=== PATIENT | male | born 1960 | race Caucasian/White ===

== ENCOUNTER → 2019-05-17 11:35 | Outpatient (BNVA) | payer MEDICAID, SELFPAY | PROVIDERS: Family Provider Family Medicine; PCP Family Medicine; Visit Provider Psychiatry & Neurology Psychiatry | DX: F41.1 Generalized anxiety disorder (principal); F33.0 Major depressive disorder, recurrent, mild | CPT/HCPCS: 99214 ==

== ENCOUNTER 2019-05-27 10:08 | Outpatient (CLI) | payer MEDICAID, SELFPAY ==
--- NOTE | 2019-05-27 10:15 | USCV_ITS ---
AdryanHumble sabillon Age: 59 Gender: M : 1960 Exam Date: 05/27/2019 10:33 Ordering Phys: Bud Granados MD Technologist: Sri Shields Exam Location: [facility] [place] Indication: KNOWN DVT. RECHECKING HISTORY: Known DVT in Rt leg. This is recheck PROCEDURES: Comparison:. 07/14/18 Venous duplex imaging was performed in only the right lower extremity. The following venous structures were evaluated: common femoral vein, profunda vein, proximal portion of the greater saphenous vein, superficial femoral vein, and the popliteal vein. In addition, the posterior tibial and peroneal trunk were evaluated. Serial compression, augmentation maneuvers, and spectral Doppler flow evaluation were performed. FINDINGS: Persistent DVT from the CFV through mid SFV. No flow seen in the distal femoral vein There is flow seen in the popliteal vein but it does not compress completely. The peroneal vein compresses and has flow. CONCLUSIONS Persistent DVT right lower extremity without improvement. Dr. Lidia Mcdermott DO (Electronically Signed) Final Date: 27 May 2019 14:30 S
== END 2019-05-27 10:09 | disposition home or self-care (01) ==
LOC: RAD 10:16
PROVIDERS: Family Provider Family Medicine; PCP Family Medicine; Visit Provider Family Medicine
DX: I82.501 Chronic embolism and thrombosis of unspecified deep veins of right lower extremity (principal)
CPT/HCPCS: 93971

== ENCOUNTER 2019-05-31 09:08 | Day surgery (SDC) | payer MEDICAID, SELFPAY ==
--- NOTE | 2019-05-31 09:26 | ANES.PREANE2 ---
Pre-Anesthetic Assessment Pre-Anesthetic Assessment: Height/Weight: Height 1.68 m Preop Diagnosis: melena Proposed Procedure: Operation Date: 05/31/19 11:00 Proposed Procedures p EGD 63526 K21.9(Not Applicable) - Ahsan Dai MD Was Beta Mike taken within 24 hours: Yes Last intake: 07:00pipe Social: Social History: Tobacco Packs per day: pipe Exam: Pre-Anes Outpt Exam: alert, oriented x 3, clear to auscultation bilaterally and regular rate & rhythm Airway: Submandibular: WNL Cervical ROM: Other MP: 3 Pulmonary: Pulmonary: COPD and Sleep apnea Comments: breathing feels ok CV/HEM: CV/HEM: HTN Comments: rx'd 25 stress test negative GI: GI: GERD Comments: melena Metabolic: Metabolic: DM Comments: rx'd x 1 year, normally 210-240 Musc/skel: Musc/skel: Lower Back Pain Comments: left radiculopathy Neuropsych: Neuropsych: MINER Anesthetic Plan: ASA status: 3 PFSH Anesthesia PFSH: Medical History (Updated 05/19/19 @ 12:55 by Bud Granados MD) Back pain (Acute) CAD (coronary artery disease) (Acute) COPD (chronic obstructive pulmonary disease) (Acute) Diabetes (Acute) DVT (deep venous thrombosis) (Acute) Hyperlipidemia (Acute) Obstructive sleep apnea (Acute) Type 2 diabetes mellitus (Acute) Surgical History H/O circumcision (Acute) H/O neck surgery (Acute) Neck Disc Surgery; Dr. Justin Sands 04/28/2011 C4-C5, C5-C6, C6-C7 ACDFF History of colonoscopy (Acute 2015) Repeat in 5 years History of esophagogastroduodenoscopy (EGD) (Acute 03/07/19) History of lower leg fracture (Acute) with surgical repair Hx laparoscopic cholecystectomy (Acute) 03/07/19 Social History Smoking and tobacco status: current some day smoker pipe Years smoked pipe: 40 Pipe Details: 10-50 bowls/day Quit status (tobacco): has tried quititng Number of times tried to quit tobacco: 1 Second hand smoke exposure: No Smoking risk assessment/counseling performed?: Yes Tobacco counseling given: counseling >3 minutes Alcohol intake: former Lives independently: Yes Marital status: Single Current occupational status: disabled Data Anesthesia Cardiac Studies: No Data to Display
[2019-05-31 09:48] VITALS: BMI 39.0
[2019-05-31 09:53] VITALS: BP 125/78; PULSE 61; RESP 18; TEMP 36.4; O2SAT 98
[2019-05-31] MEDS: sodium chloride 0.9% 1,000 ML 30 ML (10:02)
[2019-05-31 10:08] LABS: Glucose Point of Care 148 mg/dL (70-110)
[2019-05-31 11:33] VITALS: BP 110/74; PULSE 59; RESP 16; TEMP 36.2; O2SAT 93
--- NOTE | 2019-06-08 14:01 | W.PM.OPSUD ---
Surgery/Procedure H&P Update DATE OF PROCEDURE: May 31, 2019 DATE H&P PERFORMED: 05/09/19 H&P UPDATE INFORMATION: I have reviewed H&P completed within last 30 days, I have examined patient prior to procedure and No changes to prior documentation PREOP DIAGNOSIS: melena PLANNED PROCEDURE: Operation Date: 05/31/19 11:00 Proposed Procedures p EGD 30570 K21.9(Not Applicable) - Ahsan Dai MD
== END 2019-05-31 12:04 | disposition home or self-care (01) ==
PROVIDERS: Family Provider Family Medicine; PCP Family Medicine; Visit Provider Surgery
PROC: 0DJ08ZZ Inspection of Upper Intestinal Tract, Via Natural or Artificial Opening Endoscopic (ICD-10-PCS; CPT 43235; principal; 2019-05-31 11:00)
DX: K92.1 Melena (principal); Z79.82 Long term (current) use of aspirin; Z79.84 Long term (current) use of oral hypoglycemic drugs; I25.10 Atherosclerotic heart disease of native coronary artery without angina pectoris; J44.9 Chronic obstructive pulmonary disease, unspecified; Z86.718 Personal history of other venous thrombosis and embolism; E11.9 Type 2 diabetes mellitus without complications; E78.5 Hyperlipidemia, unspecified; G47.33 Obstructive sleep apnea (adult) (pediatric); F17.210 Nicotine dependence, cigarettes, uncomplicated; K21.9 Gastro-esophageal reflux disease without esophagitis
CPT/HCPCS: 12345; 36416; 43239; 82962; 88305; J2704; J3490; J7030

== ENCOUNTER → 2019-06-06 12:09 | Outpatient (BNVA) | payer MEDICAID, SELFPAY | PROVIDERS: Family Provider Family Medicine; PCP Family Medicine; Visit Provider Orthopaedic Surgery | DX: M15.1 Heberden's nodes (with arthropathy) (principal); M79.642 Pain in left hand | CPT/HCPCS: 73130 ==

== ENCOUNTER → 2019-06-08 15:50 | Outpatient (BNVA) | payer MEDICAID, SELFPAY | PROVIDERS: Family Provider Family Medicine; Visit Provider Internal Medicine Cardiovascular Disease | DX: R06.02 Shortness of breath (principal) | CPT/HCPCS: 80048; 83880 ==

== ENCOUNTER 2019-06-23 08:34 | Day surgery (SDC) | payer MEDICAID, SELFPAY ==
--- NOTE | 2019-06-15 12:46 | ANES.PREANE2 ---
Pre-Anesthetic Assessment Pre-Anesthetic Assessment: Height/Weight: Height 17.07 m Weight 112.945 kg Preop Diagnosis: Left thumb CMC joint DJD, radial styloid tenosynovitis Proposed Procedure: Operation Date: 06/23/19 09:50 Proposed Procedures p Carpectomy(Left) - Champ Cotton DO Social: Packs per day: pipe Exam: Pre-Anes Outpt Exam: alert, oriented x 3, clear to auscultation bilaterally and regular rate & rhythm Airway: Submandibular: WNL Cervical ROM: Other MP: 3 Additional comments: very limited neck est/rotation Pulmonary: Pulmonary: COPD and Sleep apnea Comments: chronic SOB, ER visit 2 years ago CV/HEM: CV/HEM: CAD, DVT and HTN Comments: stress test negative GI: GI: GERD and PUD Metabolic: Metabolic: DM Comments: rx'd 1y, normally 170-230 Musc/skel: Musc/skel: Lower Back Pain Comments: left radiculopathy Neuropsych: Neuropsych: MINER Anesthetic Plan: ASA status: 3 Anesthesia: MAC PFSH Anesthesia PFSH: Social History Smoking and tobacco status: current some day smoker pipe Years smoked pipe: 40 Pipe Details: 10-50 bowls/day Quit status (tobacco): has tried quititng Number of times tried to quit tobacco: 1 Second hand smoke exposure: No Smoking risk assessment/counseling performed?: Yes Tobacco counseling given: counseling >3 minutes Alcohol intake: former Lives independently: Yes Marital status: Single Current occupational status: disabled Data Anesthesia Cardiac Studies: No Data to Display
[2019-06-15 12:47] LABS: Basophils % 0.6 %; Eosinophils # 0.2 10^3/uL (0.0-0.8); Eosinophils % 2.7 %; Hematocrit 44.6 % (42.0-52.0); Hemoglobin 14.6 g/dL (11.7-16.6); Lymphocytes # 1.8 10^3/uL (0.8-4.8); Lymphocytes % 25.3 %; Mean Corpuscular HGB Conc 32.7 g/dL (30.0-36.0); Mean Corpuscular Hemoglobin 28.6 pg (28.0-34.0); Mean Corpuscular Volume 87.3 fL (80-94); Mean Platelet Volume 9.7 fL (7.4-10.4); Monocytes # 0.5 10^3/uL (0.2-0.9); Monocytes % 6.9 %; Neutrophils # 4.6 10^3/uL (1.8-7.7); Neutrophils % 63.9 %; Nucleated Red Blood Cells % 0 %; Platelet Count 269 10^3/cmm (130-400); Red Blood Count 5.11 10^6/uL (4.1-5.3); Red Cell Distribution Width 12.8 % (12.1-15.1); White Blood Count 7.1 10^3/uL (4.0-10.0)
[2019-06-15 13:07] LABS: INR 0.95 (0.8-1.2)
[2019-06-15 13:33] LABS: Anion Gap 14.5 (5-19); Blood Urea Nitrogen 9 mg/dL (6-20); Calcium 9.5 mg/dL (8.5-10.5); Carbon Dioxide 27 mmol/L (22-29); Chloride 103 mmol/L (98-107); Glomerular Filtration Rate 86.7 mL/min (90-130); Glucose 234 mg/dL (65-115); Osmolality Calculated 294 mOsm/kg (285-295); Potassium 4.5 mmol/L (3.5-5.1); Sodium 140 mmol/L (136-145)
--- NOTE | 2019-06-23 | SCC_ITS ---
Procedure Done: Left thumb ligament reconstruction tendon interposition using abductor pollicis longus autograft 2.0 seconds of fluoroscopic guidance, for a cumulative dose of 0.023 mGy, was provided to Dr. Cotton by the radiology department. No permanent C-jojo images were obtained. [facility]
[2019-06-23 08:44] VITALS: BP 143/93; PULSE 73; RESP 18; TEMP 36.4; O2SAT 97
[2019-06-23] MEDS: CELEcoxib 200 mg Capsule 400 MG PO (08:59)
[2019-06-23] MEDS: sodium chloride 0.9% 1,000 ML 30 ML IV (08:59)
[2019-06-23] MEDS: acetaminophen 500 mg Tablet 1000 MG PO (09:00)
[2019-06-23] MEDS: gabapentin 300 mg Capsule PO (09:00)
[2019-06-23 09:17] LABS: Glucose Point of Care 140 mg/dL (70-110)
[2019-06-23] MEDS: midazolam 1 mg/mL INJ 5 ML 5 MG IVP (09:30)
[2019-06-23] MEDS: fentaNYL 50 mcg/mL INJ 2mL 100 MCG IVP (09:30)
[2019-06-23 10:18] LABS: INR 0.96 (0.8-1.2)
--- NOTE | 2019-06-23 10:34 | P.OP_ITS ---
Operative Report Date of procedure: June 23, 2019 Pre-op Diagnosis: Left thumb CMC joint DJD, radial styloid tenosynovitis Post-op diagnosis: same Post-op Findings: DJD left thumb CMC joint Procedure Done: Left thumb ligament reconstruction tendon interposition using abductor pollicis longus autograft Release first dorsal extensor compartment Specimens removed/disposition: Portions of trapezium bone submitted to pathology Surgeon: Champ Cotton Anesthesia: Nerve Block (axillary) Estimated blood loss (mL): 25 Tourniquet time (min): 90 Tourniquet time: 275 mmHg pressure Complications: none Findings: djd left thumb cmc joint Disposition: same day Brief History: 59-year-old white male with progressive disabling left thumb and radial sided wrist pain. Physical examination showed a positive left thumb CMC grind test and a positive Clive test. He is failed conservative treatment. X-rays show degenerative changes of the left thumb carpometacarpal articulation. No significant arthritis of the radiocarpal joint. The risks of surgery include are not limited to failure to relieve all pain, decreased panama hat smearer strength, nerve/blood vessel/tendon injury. Medical complications can include blood clots, heart attack, stroke risk up to including . All questions were answered the patient is agreeable to proceed with surgery. Procedure: 1.5 g Zincef Patient identified. Surgical site was signed. Surgical permit was signed. The patient received left-sided axillary nerve block. Received 1.5 g of Zinacef intravenously for surgical prophylaxis. He was taken the operating room. He was placed supine on the operating room table. He received intravenous sedation. A tourniquet placed but the upper aspect left upper extremity. The left upper extremity was then sterilely prepped and draped in the usual fashion. A procedural pause was performed. The operative limb was exsanguinated with an Esmarch bandage and tourniquet inflated 275 mmHg pressure. Incision was made from the dorsum of the middle aspect of the thumb metacarpal to the radial aspect of the distal forearm using #15 blade. Full-thickness skin flaps were made. Crossing veins were coagulated with bipolar cautery. We identified the superficial branch of the radial nerve proximally and it was protected. We released the first dorsal extensor compartment and identified the underlying extensor pollicis brevis and abductor pollicis longus tendons. The abductus pollicis longus tendon was divided proximally to be used as a an autograft. We placed a 2-0 fiber loop suture in the tendon to the serve as a passing suture. The joint capsule at the base of the thumb metacarpal was incised longitudinally. Full-thickness flaps of capsule were made. Using fluoroscopy I identified the trapezium bone and it was first divided into quarters using oscillating saw followed by use of an osteotome to divided into quarters and the trapezium bone was removed with a rongeur. The underlying flexor carpi radialis tendon insertion on the index metacarpal is identified. It was incised longitudinally to allow passing of the abductor pollicis longus tendon autograft through it. I incised the joint capsule with #15 blade and we passed the abductor pollicis longus tendon through the small rent in the graft and delivered it into the space where the trapezium bone was resected. Then using a grasping suture pass the abductor pollicis longus tendon autograft through the rent in the tendon. The drill hole using a guidewire and a cannulated drill was performed and using a nitinol wire suture retriever we passed the abductor pollicis longus tendon through the volar base of the thumb metacarpal. The tendon through the dorsal surface the tension of the graft and secured in place using a bio tenodesis screw. Then the tendon back on itself and sutured to itself with head passed through the flexor carpi radialis tendon. A semitendinosus allograft was then fashioned into an anchovy and is placed in the space created by the trapezial resection. The joint capsule was then closed with interrupted sutures of 2-0 FiberWire. Skin was closed in layers with 4-0 nylon on skin. Antibiotic ointment was applied followed by sterile dressings and the patient was placed in a plaster thumb spica splint. The tourniquet had been deflated prior to skin closure. The patient was aroused from sedation and then transferred back to outpatient surgery area. All counts were correct. He tolerated surgery well.
--- NOTE | 2019-06-23 10:34 | W.PM.OPSUD ---
Surgery/Procedure H&P Update DATE OF PROCEDURE: June 23, 2019 DATE H&P PERFORMED: 06/08/19 H&P UPDATE INFORMATION: I have reviewed H&P completed within last 30 days and No changes to prior documentation PREOP DIAGNOSIS: Left thumb CMC joint DJD, radial styloid tenosynovitis PRIMARY INDICATION FOR PROCEDURE: as above PLANNED PROCEDURE: Operation Date: 06/23/19 09:50 Proposed Procedures p left thumb carpometacarpal, release of first dorsal extensor compartment left wrist(Left) - Champ Cotton DO
[2019-06-23] MEDS: cefUROXime 1,500 MG in sodium chloride 0.9% (plus) 50 ML 100 MG IV (11:19)
[2019-06-23] MEDS: neomycin-poly-bacitracin oint 28 gm 1 APPLIC TOPICAL (13:20)
[2019-06-23 13:40] VITALS: BP 114/83; PULSE 56; RESP 18; TEMP 36.1; O2SAT 97
[2019-06-23 14:10] VITALS: BP 114/83; PULSE 61; RESP 18; O2SAT 99
[2019-06-23 14:23] VITALS: RESP 18
[2019-06-23] MEDS: oxyCODONE-APAP 5-325 mg Tablet 1 TAB PO (14:23)
[2019-06-23 14:40] VITALS: BP 122/78; PULSE 78; RESP 18
[2019-06-23 15:10] VITALS: BP 119/78; PULSE 68; RESP 18
--- NOTE | 2019-06-23 16:43 | PC.NURSE ---
PAIN PILL HAS BEEN GIVEN AND PT EATING LUNCH PROVIDED BY OPS FOR HIM AND HIS RIDE.
== END 2019-06-23 15:45 | disposition home or self-care (01) ==
PROVIDERS: Anesthesiology; Visit Provider Orthopaedic Surgery
PROC: (CPT 26460; principal; 2019-06-23 09:50)
DX: M19.042 Primary osteoarthritis, left hand (principal); M65.4 Radial styloid tenosynovitis [de Quervain]; Z79.82 Long term (current) use of aspirin; Z79.84 Long term (current) use of oral hypoglycemic drugs; Z82.49 Family history of ischemic heart disease and other diseases of the circulatory system; Z83.3 Family history of diabetes mellitus; F17.290 Nicotine dependence, other tobacco product, uncomplicated; J44.9 Chronic obstructive pulmonary disease, unspecified; G47.30 Sleep apnea, unspecified; I25.10 Atherosclerotic heart disease of native coronary artery without angina pectoris; Z86.718 Personal history of other venous thrombosis and embolism; I10 Essential (primary) hypertension; Z87.11 Personal history of peptic ulcer disease
CPT/HCPCS: 26460; 26492; 12345; 36415; 36416; 76000; 82962; 85610; 88304; 96374; 96375; J0697; J1580; J2001; J2250; J2704; J2795; J3010; J3490; J7030

== ENCOUNTER → 2019-06-29 11:55 | Outpatient (BNVA) | payer MEDICAID, SELFPAY | PROVIDERS: Family Provider Family Medicine; PCP Family Medicine; Visit Provider Family Medicine | DX: I82.409 Acute embolism and thrombosis of unspecified deep veins of unspecified lower extremity (principal); K92.1 Melena; E11.9 Type 2 diabetes mellitus without complications; J44.9 Chronic obstructive pulmonary disease, unspecified; R07.9 Chest pain, unspecified; I10 Essential (primary) hypertension | CPT/HCPCS: 85610 ==

== ENCOUNTER 2019-06-30 09:03 | Outpatient (CLI) | payer MEDICAID, SELFPAY ==
--- NOTE | 2019-06-30 09:19 | ECG_ITS ---
NAME OF STUDY: LEXISCAN SESTAMIBI STRESS TEST INDICATION: Shortness of Breath PROCEDURE: At the baseline, the blood pressure was 135/71 mmHg, oxygen saturation 96% with a heart rate of 76 bpm. The electrocardiogram showed sinus bradycardia, normal axis with possible old septal infarct. The Lexiscan was infused over a period of 20 seconds. A total of 0.4 milligrams of Lexiscan was infused. The stress phase was continued for a total of 5 minutes. Heart rate at the end of the stress phase was 57 bpm, oxygen saturation 94% with a blood pressure 158/84 mmHg. The EKG at the peak infusion revealed sinus bradycardia with no significant ST-T wave changes. Sestamibi was injected 20 seconds after the Lexiscan infusion. Blood pressure at the end of the recovery phase was 146/83 mmHg, oxygen saturation 93% with a heart rate of 57 beats per minute. CONCLUSION: 1. Normal EKG response to LexiScan infusion. 2. No LexiScan induced chest pain or cardiac arrhythmia. 3. Normal blood pressure and heart rate response. 4. Sestamibi/sestamibi perfusion scan pending; see separate report. Electronically Signed On 07-05-2019 13:41:01 CDT by Vickie Grullon M.D. [email or web address]
[2019-06-30 09:20] VITALS: BMI 39.0
--- NOTE | 2019-06-30 09:20 | NMCV_ITS ---
NM dorene perf SPECT r/s* [id number] Humble Cornelius Age: 59 Gender: M : 1960 Exam Date: 06/30/2019 10:06 Ordering Phys: Vickie Grullon MD Technologist: ADRIEL Bryant Exam Location: [facility] Indications: SOB STRESS TEST Please see separate stress test report in [facility] for full findings IMAGE PROTOCOL Rest/Stress 1 Lexiscan Day Radiopharmaceutical Dose (mCi) Administration Site Administered by Rest: Tc-99m 10.0 IV ADRIEL Montgomery Sestamibi Stress:Tc-99m 33.0 IV ADRIEL Montgomery Sestamibi Rest: 30-Jun-2019 60 Discovery 630 Stress: 30-Jun-2019 30 Discovery 630 0.4mg Lexiscan. Supine position only as patient was unable to lay prone. SPECT RESULTS Technical Quality: Excellent Raw Data Analysis: Normal Image Corrections: No attenuation or motion correction applied Summed Stress Score: 0 Summed Rest Score: 0 Summed Difference Score: 0 PERFUSION FINDINGS SPECT images demonstrate homogeneous tracer distribution throughout the myocardium on rest images with subtle reversibility in apical inferior wall on stress images. FUNCTIONAL RESULTS (calculated via Gated SPECT) Stress Image LV EF (%): 71 Stress EDV (mL):108 TID: 0.93 Stress ESV (mL):31 FUNCTIONAL FINDINGS: The left ventricle is normal in size. Transient Ischemia Dilatation of 0.93. There is normal left ventricular systolic function. The left ventricular ejection fraction is normal with a value of 71%. There is normal left ventricular wall thickening. There is normal end-diastolic and end-systolic volumes. IMPRESSIONS 1. SPECT images demonstrate subtle reversibility in apical inferior wall on supine stress images. This may represent attenuation artifact in abscence of prone imaging or very small area of ischemia in left anterior descending artery territory. 2. Overall left ventricular systolic function is normal without regional wall motion abnormalities. 3. The left ventricular ejection fraction is normal with a value of 71%. 4. Scan indicates low risk for cardiac events. Vickie Grullon MD (Electronically Signed) Final Date: 04 July 2019 11:29 S
[2019-06-30] MEDS: regadenoson 0.4 Mg/5 ml Syringe IVP (10:59)
[2019-06-30 11:23] VITALS: BP 146/83; PULSE 56
== END 2019-06-30 09:04 | disposition home or self-care (01) ==
LOC: CDL 09:04
PROVIDERS: Family Provider Family Medicine; Visit Provider Internal Medicine Cardiovascular Disease
DX: R06.02 Shortness of breath (principal)
CPT/HCPCS: 78452; 93017; A9500; J2785

== ENCOUNTER → 2019-07-04 13:04 | Outpatient (BNVA) | payer MEDICAID, SELFPAY | PROVIDERS: Family Provider Family Medicine; Visit Provider Family Medicine | DX: I82.409 Acute embolism and thrombosis of unspecified deep veins of unspecified lower extremity (principal) | CPT/HCPCS: 85610 ==

== ENCOUNTER 2019-07-07 11:01 | Outpatient (CLI) | payer MEDICAID, SELFPAY | END 2019-07-07 11:02 | disposition home or self-care (01) | LOC: SPT 11:02 | PROVIDERS: Family Provider Family Medicine; Visit Provider Orthopaedic Surgery | DX: Z46.89 Encounter for fitting and adjustment of other specified devices (principal) | CPT/HCPCS: L3807 ==

== ENCOUNTER → 2019-07-20 15:04 | Outpatient (BNVA) | payer MEDICAID, SELFPAY | PROVIDERS: Family Provider Family Medicine; Visit Provider Orthopaedic Surgery | DX: Z48.89 Encounter for other specified surgical aftercare (principal) | CPT/HCPCS: 73130 ==

== ENCOUNTER 2019-07-20 15:23 | Outpatient (CLI) | payer MEDICAID, SELFPAY | END 2019-07-20 15:24 | disposition home or self-care (01) | LOC: SPT 15:25 | PROVIDERS: Family Provider Family Medicine; Visit Provider Orthopaedic Surgery | DX: Z46.89 Encounter for fitting and adjustment of other specified devices (principal); M18.12 Unilateral primary osteoarthritis of first carpometacarpal joint, left hand | CPT/HCPCS: L3924 ==

== ENCOUNTER → 2019-07-22 09:21 | Outpatient (BNVA) | payer MEDICAID, SELFPAY | PROVIDERS: Family Provider Family Medicine; Visit Provider Psychiatry & Neurology Psychiatry | DX: F33.0 Major depressive disorder, recurrent, mild (principal); F41.1 Generalized anxiety disorder; F40.10 Social phobia, unspecified | CPT/HCPCS: 99213 ==

== ENCOUNTER → 2019-10-18 07:52 | Outpatient (BNVA) | payer MEDICAID, SELFPAY | PROVIDERS: Family Provider Family Medicine; Visit Provider Psychiatry & Neurology Psychiatry | DX: F40.10 Social phobia, unspecified (principal); F41.1 Generalized anxiety disorder; F33.0 Major depressive disorder, recurrent, mild | CPT/HCPCS: 99213 ==

== ENCOUNTER → 2019-11-02 12:00 | Outpatient (BNVA) | payer MEDICAID, SELFPAY | PROVIDERS: Family Provider Family Medicine; PCP Family Medicine; Visit Provider Internal Medicine Cardiovascular Disease | DX: I10 Essential (primary) hypertension (principal); E11.9 Type 2 diabetes mellitus without complications; I82.409 Acute embolism and thrombosis of unspecified deep veins of unspecified lower extremity | CPT/HCPCS: 80053; 80061; 83036; 83880; 84443; 85007; 85027 ==

== ENCOUNTER → 2019-11-09 11:49 | Outpatient (BNVA) | payer MEDICAID, SELFPAY | PROVIDERS: Family Provider Family Medicine; PCP Family Medicine; Visit Provider Orthopaedic Surgery | DX: Z98.890 Other specified postprocedural states (principal); Z48.89 Encounter for other specified surgical aftercare; M18.12 Unilateral primary osteoarthritis of first carpometacarpal joint, left hand | CPT/HCPCS: 73130 ==

== ENCOUNTER 2019-11-15 11:03 | Outpatient (CLI) | payer MEDICAID, SELFPAY ==
--- NOTE | 2019-11-15 14:24 | PFTS_ITS ---
Date of Study:11/15/19 Date of Dictation: MECHANICS: Forced vital capacity (FVC) is reduced. Forced expiratory volume in one second (FEV1) is normal. FEV1/FVC is normal. FLOW VOLUME LOOP: Minimal scooping at lower lung volumes. LUNG VOLUMES: Not measured DIFFUSING CAPACITY FOR CARBON MONOXIDE: Not measured INTERPRETATION: Spirometry is consistent with mild restriction. MTDD
== END 2019-11-15 11:04 | disposition home or self-care (01) ==
LOC: RT 11:04
PROVIDERS: PCP Family Medicine; Visit Provider Internal Medicine Cardiovascular Disease
DX: R06.02 Shortness of breath (principal)
CPT/HCPCS: 94010

== ENCOUNTER → 2019-11-28 13:40 | Outpatient (BNVA) | payer MEDICAID, SELFPAY | PROVIDERS: PCP Family Medicine; Visit Provider Internal Medicine | DX: Z11.59 Encounter for screening for other viral diseases (principal) | CPT/HCPCS: 87635 ==

== ENCOUNTER 2019-11-30 07:43 | Day surgery (SDC) | payer MEDICAID, SELFPAY ==
[2019-11-28 14:49] LABS: Basophils % 0.3 %; Eosinophils # 0.1 10^3/uL (0.0-0.8); Hematocrit 39.9 % (42.0-52.0); Hemoglobin 13.3 g/dL (11.7-16.6); Lymphocytes # 1.4 10^3/uL (0.8-4.8); Lymphocytes % 23.2 %; Mean Corpuscular HGB Conc 33.3 g/dL (30.0-36.0); Mean Corpuscular Hemoglobin 29.2 pg (28.0-34.0); Mean Corpuscular Volume 87.5 fL (80-94); Mean Platelet Volume 10.5 fL (7.4-10.4); Monocytes # 0.4 10^3/uL (0.2-0.9); Monocytes % 7.4 %; Neutrophils # 3.97 10^3/uL (1.8-7.7); Neutrophils % 66.8 %; Nucleated Red Blood Cells % 0 %; Platelet Count 205 10^3/cmm (130-400); Red Blood Count 4.56 10^6/uL (4.1-5.3); Red Cell Distribution Width 12.7 % (12.1-15.1)
[2019-11-28 15:21] LABS: Anion Gap 11.1 (5-19); Blood Urea Nitrogen 8 mg/dL (6-20); Carbon Dioxide 26 mmol/L (22-29); Chloride 98 mmol/L (98-107); Glomerular Filtration Rate 86.7 mL/min (90-130); NT Pro B Type Natriuretic Pept 294 pg/mL (0-125); Osmolality Calculated 294 mOsm/kg (285-295); Potassium 4.1 mmol/L (3.5-5.1); Sodium 131 mmol/L (136-145)
[2019-11-28 15:43] LABS: Glucose 565 mg/dL (65-115)
[2019-11-28 16:29] LABS: INR 0.96 (0.8-1.2)
[2019-11-29 10:51] VITALS: BMI 38.2
[2019-11-30] VITALS (16 sets, daily range): BP systolic 122–177; BP diastolic 65–99; PULSE 55–70; RESP 18; TEMP 37.1; O2SAT 93–98
--- NOTE | 2019-11-30 07:30 | XACV_ITS ---
Exam Room: 112 Ht: 168 cm Wt: 107 kg BSA: 2.28 m2 Gender: Male : 1960 Any Known Allergies: No known allergies Exam Priority: Routine Procedure(s): Procedure Description: Diagnostic procedure Diagnostic Cath Status: Elective Diagnostic Findings LM has 0% stenosis. CX has 0% stenosis. RCA has 0% stenosis. pLAD: Mild 20% stenosis, OMAR: 3 flow. Coronary angiography shows left dominance. Indication for angiogram: Worsening of shortness of breath with chest pain despite of optimal medical management. Abnormal stress test. Conclusions There is mild coronary artery disease with one vessel disease. Recommendations Continue current medical management and risk factor modification. Pressures Phase:Rest AO : 128 mmHg / 83 mmHg ( 102 mmHg ) @ 6:57:00 AM 158 mmHg / 87 mmHg ( 116 mmHg ) @ 7:02:00 AM 165 mmHg / 87 mmHg ( 118 mmHg ) @ 7:02:00 AM LV : 171 mmHg / 1 mmHg / @ 7:02:00 AM 171 mmHg / 0 mmHg / @ 7:02:00 AM Valves Phase:DefaultPhase AV : 11.0 mmHg @ 12:15:01 PM AV Mean Gradient: 13.0 mmHg @ 12:15:01 PM Clinical Evaluation EBL: 5mL-10mL Procedural Details Procedure Consent Obtained. patient arrived to the CCL and a STEMI alert was called in the ED. Patient taken off the laborer tree tapping table and taken back to the CPRU. Procedure started. Pre-Procedure Time Out. Identified patient by full name and date of as verbalized by the patient/guarantor. Does the consent match the physician's order: Yes. Accurate & Complete Informed Consent: Yes. Inpatient/Outpatient History & Physical on Chart: Yes. If H&P is completed, is and addenduem needed: No. Visualize and Verify Site with Patient/Guarantor: N/A. Relevant Radiology Images available: Yes. The risks, benefits, and alternatives of sedation and/or procedure were discussed by physician. The patient agrees to continue. [facility] Clinical Fraility Score: 3: Managing Well. 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 Chest Pain Symptom Assessment: Typical Angina Symptoms. Cardiovascular Instability: No. Correct patient, site and procedure confirmed by cath team. PERRLA. Strong, equal hand orthopedic radiologic technologist bilaterally. Lungs clear x 5 lobes. IV Site on Arrival: 18 gauge in the left anticubital. IV Fluids: 0.9% NaCl at KVO. 0 mL infused prior to laborer tree tapping. Pre Procedural Pulses: bilateral dorsalis pedis was Doppled. Pre Procedural Pulses: bilateral posterior tibial was Doppled. Pre Procedural Pulses: bilateral radial was 3+. Oxygen started at 2liters/min via nasal canula. right groin was prepped with chloroprep then draped in the usual sterile fashion. right radial was prepped with chloroprep then draped in the usual sterile fashion. Physician notified. Baseline sample Acquired. HR: 51 BPM. The patient's caregiver/neighbor, Jena, was called to update on start of procedure. Equipment: 6F - Radial. Cardiac Cath Pack. ACIST Manifold Kit Model BT 2000. Heparinized Saline (2 units/mL), 1000 mL bag. Physician arrived. Physician scrubbed in. Immediate Pre-Procedure Time Out. Correct Patient: Yes; Correct Procedure: Yes; Correct Site: Yes; Correct Patient Position: Yes; Correct Supplies: Yes; Dried Flammable Prep: Yes; Blood Products Available: N/A. Lidocaine 1% infiltrated to the right radial. Arterial access obtained. A 5 mosotho TIG catheter in over wire. Multiple views taken of left coronary artery. Catheter redirected to the RCA. Catheter removed over the exchange wire. A 5 mosotho Angled Pig catheter in over wire. EDP Sample taken: LV 171/1,30; HR: 73 BPM; SpO2: 99%. Pullback taken: LV 171/-1,24; AO 158/87(116); Mean: 13mmHg, Peak to Peak: 11mmHg, SEP: 21sec/min; HR: 68 BPM; SpO2: 98%. Physician scrubbed out. Patient's family updated per Dr. Monique. Vital chart was stopped. TR band placed. Hemostasis obtained. Post Procedure: Pulses reassessed and unchanged. PERRLA. Strong, equal hand orthopedic radiologic technologist bilaterally. No VTE prophylaxis required. Medication's Wasted: Lidocaine 1% = 18 mL. Medication's Wasted: Heparin = 1000 mcg. Total IV fluids: 50 mL. A TR Band was successful obtaining hemostatsis at the Right Radial artery insertion site. Post-op diagnosis: Normal Coronaries. Complications: none. Estimated blood loss: 5mL-10mL. Procedure completed. Patient transferred by wheelchair to 1st floor. Site: Right Radial artery Sheath Size: 6 Fr Hemostasis Method: TR Band Hemostasis Success: Successful Procedure Medications Start: 11:49 AM Stop: 11:49 AM Medication: Versed Amount: 1 mg Route: I.V. Start: 11:49 AM Stop: 11:49 AM Medication: Fentanyl Amount: 50 mcg Route: I.V. Start: 11:55 AM Stop: 11:55 AM Medication: Heparin Amount: 5000 units Route: I.V. Start: 11:57 AM Stop: 11:57 AM Medication: Versed Amount: 1 mg Route: I.V. Start: 11:57 AM Stop: 11:57 AM Medication: Fentanyl Amount: 50 mcg Route: I.V. I, the attending physician, have reviewed and verified all procedure medications. Yes, all medications given per verbal order History/Risk Factors Hypertension: Yes Dyslipidemia: Yes Diabetic Therapy: Oral Peripheral Arterial Disease (PAD): No Myocardial Infarction (GA): No Obesity: Yes Renal Disease: No Tobacco Use: Current/Recent(w/in 1 year) Prior Interventions PCI: No CABG: No Valve Surgery: No Report Signatures Finalized by:Cintia Monique MD on 12/14/2019 11:26:35 AM
[2019-11-30] MEDS: diphenhydrAMINE 50 mg Capsule PO (07:58)
--- NOTE | 2019-11-30 09:37 | SUR.PREOP ---
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 He was brought back to CPRU room #4 and explained the delay with his understanding verbalized. His contact, Jena ), was called to notify of the delay. Will call her back when the procedure is started.
[2019-11-30] MEDS: amlodipine 10 mg Tablet PO (12:38)
[2019-11-30 12:44] LABS: Glucose Point of Care 342 mg/dL (70-110)
[2019-11-30] MEDS: BuSPIRONE 5 mg Tablet PO (14:05)
--- NOTE | 2019-11-30 15:36 | PC.NURSE ---
Addendum entered by Daphne Schmidt 11/30/19 15:46: Patient arrived to floor at 1215. Original Note: Patient arrived to room from [employer]. 2 nurse verification of site. hematoma noted on assessment by floor nurse, measured 2 cm. Direct pressure held by [employer] nurse, massaged until soft. Dr. Monique notified, no further orders received. neurovascular assessment WNL. See physical assessment and VS flowsheet. Patient oriented to room and [employer]. Patient education provided regarding smoking cessation and post angiogram care instructions, patient verbalized understanding. Nurse to continue to monitor.
--- NOTE | 2019-11-30 15:47 | PC.NURSE ---
TR band off at 1525, according to protocol. Dressing applied, CDI. No complications noted. Patient tolerated well. Patient made statement to nurse, I'm ready to get out of here. Tell that doctor to come see me so I can leave. The nurse explained to the patient that it varies on the time the physician can respond to the floor because of various procedures the physician may be involved in. Patient stated that if it was going to be much longer he would just sign out right then and leave AMA. The nurse explained to the patient the health associated risks of leaving AMA and the possibility of insurance not covering stay or receiving discharge medications. Patient then stated he had changed his mind and would like to stay until the physician could see him. Dr. Monique notified of event. Physician to put in discharge orders and gave nurse instructions to discharge patient without being seen by Dr. Monique. Nurse to continue to monitor.
--- NOTE | 2019-11-30 16:38 | PC.NURSE ---
Discharge instructions given per the physician's instructions. Patient verbalized understanding of post angiogram home care instructions and the importance of smoking cessation. Patient did not verbalize compliance with smoking cessation. IV has been removed. Patient dressed self. Insertion site asymptomatic. No further needs identified at this time.
--- NOTE | 2019-12-14 12:20 | W.PM.OPSUD ---
Surgery/Procedure H&P Update DATE OF PROCEDURE: November 30, 2019 DATE H&P PERFORMED: 11/02/19 H&P UPDATE INFORMATION: I have reviewed H&P completed within last 30 days, I have examined patient prior to procedure, No changes to prior documentation and Changes to prior documentation as noted here PREOP DIAGNOSIS: Chest pain with worsening of shortness of breath despite maximal medical management, abnormal stress test PLANNED PROCEDURE: Operation Date: 11/30/19 08:30 Proposed Procedures p cardiac catheterization left(Left) - Cintia Monique MD PATIENT REASSESSED PRIOR TO SEDATION, WITH NO CHANGE NOTED: Yes PHYSICAL EXAM: alert, oriented x 3, clear to auscultation bilaterally and regular rate & rhythm AIRWAY EVAL/ANESTHESIA PLAN: ASA II, Risks, benefits & alternatives of sedation and/or procedure discussed and Patient agrees to continue as planned
== END 2019-11-30 16:41 | disposition home or self-care (01) ==
LOC: CCL 07:44 → CSU 07:44
PROVIDERS: PCP Family Medicine; Visit Provider Internal Medicine Cardiovascular Disease
DX: I25.119 Atherosclerotic heart disease of native coronary artery with unspecified angina pectoris (principal); E11.9 Type 2 diabetes mellitus without complications; J44.9 Chronic obstructive pulmonary disease, unspecified; G47.33 Obstructive sleep apnea (adult) (pediatric); I10 Essential (primary) hypertension; E78.5 Hyperlipidemia, unspecified; Z79.82 Long term (current) use of aspirin; Z79.01 Long term (current) use of anticoagulants; Z82.49 Family history of ischemic heart disease and other diseases of the circulatory system; F17.290 Nicotine dependence, other tobacco product, uncomplicated; E66.9 Obesity, unspecified; Z68.38 Body mass index [BMI] 38.0-38.9, adult
CPT/HCPCS: 12345; 36415; 36416; 80048; 82962; 83880; 85025; 85610; 93452; 96372; C1769; C1887; C1894; J1644; J1815; J2250; J3010; J7030; Q0163; Q9967

== ENCOUNTER 2019-12-08 13:49 | Outpatient (CLI) | payer MEDICAID, SELFPAY ==
--- NOTE | 2019-12-08 13:30 | USCV_ITS ---
Humble Cornelius Age: 59 Gender: M : 1960 Exam Date: 12/08/2019 14:11 Ordering Phys: Bud Granados MD Technologist: Leticia Morfin [place]am [place] [facility] [place] Indication: Bilateral leg pain HISTORY: Lower extremity pain. PROCEDURES: Comparison:. 05/27/19. Venous duplex imaging was performed in bilateral lower extremities. The following venous structures were evaluated: common femoral vein, profunda vein, proximal portion of the greater saphenous vein, superficial femoral vein, and the popliteal vein. In addition, the posterior tibial and peroneal trunk were evaluated. FINDINGS: DVT extending throughout the right superficial femoral vein and into the right popliteal vein as noted on previous venous duplex. Vein is small caliber and thrombus likely chronic. All other lower extremity venous structures imaged appear negative for DVT at this time. CONCLUSIONS Right SFA to popliteal vein thrombus similar to prior exam and maybe chronic. Dr. Lidia Mcdermott DO (Electronically Signed) Final Date: 08 December 2019 15:52 S
== END 2019-12-08 13:50 | disposition home or self-care (01) ==
LOC: RAD 13:51
PROVIDERS: PCP Family Medicine; Visit Provider Family Medicine
DX: I26.99 Other pulmonary embolism without acute cor pulmonale (principal); I82.409 Acute embolism and thrombosis of unspecified deep veins of unspecified lower extremity; M79.604 Pain in right leg; M79.605 Pain in left leg; I74.8 Embolism and thrombosis of other arteries
CPT/HCPCS: 80053; 83036; 85025; 85610; 93970

== ENCOUNTER 2019-12-27 13:06 | Outpatient (CLI) | payer MEDICAID, SELFPAY ==
--- NOTE | 2019-12-27 13:00 | CT_ITS ---
WS: [id number] CT CHEST ANGIOGRAPHY WITH REFORMATS HISTORY: sob, noncompliant with inr TECHNIQUE: Contiguous axial images are obtained through the chest during arterial injection of intrav enous contrast. Images are reconstructed to evaluate the pulmonary arteries. MIP imaging also reviewe d. All CT scans at [facility] use at least one of these dose optimization techniques: aut omated exposure control; mA and/or kV adjustment per patient size (includes targeted exams where dose is matched to clinical indication); or iterative reconstruction. CONTRAST: Omnipaque 350; 95 mL IV. DLP: 764.39 mGycm COMPARISON: None available. Excellent opacification of the pulmonary arteries. There are no filling defects or pulmonary emboli. Normal-sized thoracic aorta. No dissection or aneurysm. Heart size is normal. No pericardial or pleur al effusion. Small hiatal hernia. No pulmonary mass or nodule. No mediastinal or hilar adenopathy. Small hiatal hernia. Mild hepatomegaly and hepatic steatosis. Prior cholecystectomy. No adrenal mass. Compression fracture L1 by 20%. No retropulsion. CT/CT angio chest PE protcl [id number] IMPRESSION: 1. No pulmonary embolism. 2. No pneumonia. 3. Normal-sized thoracic aorta. 4. Prior cholecystectomy and hepatic steatosis.
[2019-12-27] MEDS: iohexol 350 mg/mL 100 mL Btl IV (13:37)
== END 2019-12-27 13:07 | disposition home or self-care (01) ==
LOC: RADWPI 13:08
PROVIDERS: PCP Family Medicine; Visit Provider Family Medicine
DX: R06.02 Shortness of breath (principal); Z91.19 Patient's noncompliance with other medical treatment and regimen; K76.0 Fatty (change of) liver, not elsewhere classified
CPT/HCPCS: 71275; Q9967

== ENCOUNTER → 2020-01-05 13:57 | Outpatient (BNVA) | payer MEDICAID, SELFPAY | PROVIDERS: PCP Family Medicine Adult Medicine; Visit Provider Family Medicine Adult Medicine | DX: R73.9 Hyperglycemia, unspecified (principal); I25.10 Atherosclerotic heart disease of native coronary artery without angina pectoris | CPT/HCPCS: 36416; 82962 ==

== ENCOUNTER → 2020-01-13 07:55 | Outpatient (BNVA) | payer MEDICAID, SELFPAY | PROVIDERS: PCP Family Medicine Adult Medicine; Visit Provider Psychiatry & Neurology Psychiatry | DX: F40.10 Social phobia, unspecified (principal); F41.1 Generalized anxiety disorder; F33.0 Major depressive disorder, recurrent, mild | CPT/HCPCS: 99213 ==

== ENCOUNTER → 2020-02-06 09:41 | Outpatient (BNVA) | payer MEDICAID, SELFPAY | PROVIDERS: PCP Family Medicine Adult Medicine; Visit Provider Family Medicine Adult Medicine | DX: I26.99 Other pulmonary embolism without acute cor pulmonale (principal); I10 Essential (primary) hypertension; E11.9 Type 2 diabetes mellitus without complications; E78.2 Mixed hyperlipidemia; I25.119 Atherosclerotic heart disease of native coronary artery with unspecified angina pectoris | CPT/HCPCS: 80053; 80061; 83036; 84443 ==

== ENCOUNTER → 2020-02-23 09:54 | Outpatient (BNVA) | payer MEDICAID, SELFPAY | PROVIDERS: PCP Family Medicine Adult Medicine; Referring Provider Registered Nurse; Visit Provider Internal Medicine | DX: E11.59 Type 2 diabetes mellitus with other circulatory complications (principal); I25.10 Atherosclerotic heart disease of native coronary artery without angina pectoris; I10 Essential (primary) hypertension; E11.65 Type 2 diabetes mellitus with hyperglycemia; E78.2 Mixed hyperlipidemia; G47.33 Obstructive sleep apnea (adult) (pediatric) | CPT/HCPCS: 99204 ==

== ENCOUNTER → 2020-04-06 08:57 | Outpatient (BNVA) | payer MEDICAID, SELFPAY | PROVIDERS: PCP Family Medicine Adult Medicine; Visit Provider Psychiatry & Neurology Psychiatry | DX: F40.10 Social phobia, unspecified (principal); F41.1 Generalized anxiety disorder; F33.0 Major depressive disorder, recurrent, mild | CPT/HCPCS: 99213 ==

== ENCOUNTER → 2020-06-20 10:16 | Outpatient (BNVA) | payer MEDICAID, SELFPAY | PROVIDERS: PCP Family Medicine Adult Medicine; Visit Provider Internal Medicine | DX: E11.22 Type 2 diabetes mellitus with diabetic chronic kidney disease (principal); N18.9 Chronic kidney disease, unspecified; E11.59 Type 2 diabetes mellitus with other circulatory complications; I25.10 Atherosclerotic heart disease of native coronary artery without angina pectoris; E11.65 Type 2 diabetes mellitus with hyperglycemia | CPT/HCPCS: 99214 ==

== ENCOUNTER → 2020-06-29 09:11 | Outpatient (BNVA) | payer MEDICAID, SELFPAY | PROVIDERS: PCP Family Medicine Adult Medicine; Visit Provider Psychiatry & Neurology Psychiatry | DX: F40.10 Social phobia, unspecified (principal); F41.1 Generalized anxiety disorder; F33.0 Major depressive disorder, recurrent, mild | CPT/HCPCS: 99213 ==

== ENCOUNTER → 2020-08-03 10:27 | Outpatient (BNVA) | payer MEDICAID, SELFPAY | PROVIDERS: PCP Family Medicine Adult Medicine; Visit Provider Family Medicine Adult Medicine | DX: E11.69 Type 2 diabetes mellitus with other specified complication (principal); I25.119 Atherosclerotic heart disease of native coronary artery with unspecified angina pectoris; N18.9 Chronic kidney disease, unspecified; E11.59 Type 2 diabetes mellitus with other circulatory complications; E11.65 Type 2 diabetes mellitus with hyperglycemia | CPT/HCPCS: 80053; 80061; 83036; 85025 ==

== ENCOUNTER 2020-08-23 09:56 | Outpatient (CLI) | payer MEDICAID, SELFPAY ==
--- NOTE | 2020-08-23 10:15 | USCV_ITS ---
Humble Cornelius Age: 60 Gender: M : 1960 Exam Date: 08/23/2020 10:15 Ordering Phys: Panfilo Garza MD Technologist: Janice Pizarro Exam Location: [facility] [place] Indication: Chronic DVT of lower extremities HISTORY: History of deep venous thrombosis. PROCEDURES: Comparison: 12-08-2019. Venous duplex imaging was performed in bilateral lower extremities. The following venous structures were evaluated: common femoral vein, profunda vein, proximal portion of the greater saphenous vein, superficial femoral vein, and the popliteal vein. In addition, the posterior tibial and peroneal trunk were evaluated. Serial compression, augmentation maneuvers, and spectral Doppler flow evaluation were performed. FINDINGS: Non-occlusive deep venous thrombosis of the right femoral vein. All other veins of the right lower extremity demonstrate normal flow dynamics with no evidence of deep vein thrombosis or superficial phlebitis. The veins of the left lower extremity are readily compressible with normal venous flow dynamics including spontaneous flow, respiratory phasic variation and augmentation. CONCLUSIONS Non occlusive DVT right femoral vein. Remaining vessels are patent. No evidence of left lower extremity DVT. Hunter Troncoso MD (Electronically Signed) Final Date: 23 Aug 2020 18:08 S
== END 2020-08-23 09:57 | disposition home or self-care (01) ==
LOC: RAD 09:57
PROVIDERS: PCP Family Medicine Adult Medicine; Visit Provider Family Medicine Adult Medicine
DX: I82.402 Acute embolism and thrombosis of unspecified deep veins of left lower extremity (principal); I82.511 Chronic embolism and thrombosis of right femoral vein
CPT/HCPCS: 93970

== ENCOUNTER → 2020-09-21 09:35 | Outpatient (BNVA) | payer MEDICAID, SELFPAY | PROVIDERS: PCP Family Medicine Adult Medicine; Visit Provider Psychiatry & Neurology Psychiatry | DX: F40.10 Social phobia, unspecified (principal); F41.1 Generalized anxiety disorder; F33.0 Major depressive disorder, recurrent, mild | CPT/HCPCS: 99213 ==

== ENCOUNTER → 2020-11-07 11:14 | Outpatient (BNVA) | payer MEDICAID, SELFPAY | PROVIDERS: PCP Family Medicine Adult Medicine; Visit Provider Family Medicine Adult Medicine | DX: E11.65 Type 2 diabetes mellitus with hyperglycemia (principal); I10 Essential (primary) hypertension; E11.59 Type 2 diabetes mellitus with other circulatory complications; E78.2 Mixed hyperlipidemia; I25.10 Atherosclerotic heart disease of native coronary artery without angina pectoris | CPT/HCPCS: 83036 ==

== ENCOUNTER → 2020-12-28 09:49 | Outpatient (BNVA) | payer MEDICAID, SELFPAY | PROVIDERS: PCP Family Medicine Adult Medicine; Visit Provider Psychiatry & Neurology Psychiatry | DX: F40.10 Social phobia, unspecified (principal); F41.1 Generalized anxiety disorder; F33.0 Major depressive disorder, recurrent, mild | CPT/HCPCS: 99213 ==

== ENCOUNTER → 2021-02-06 12:10 | Outpatient (BNVA) | payer MEDICAID, SELFPAY | PROVIDERS: PCP Family Medicine Adult Medicine; Visit Provider Family Medicine Adult Medicine | DX: Z00.00 Encounter for general adult medical examination without abnormal findings (principal); E11.65 Type 2 diabetes mellitus with hyperglycemia; E78.2 Mixed hyperlipidemia; I10 Essential (primary) hypertension | CPT/HCPCS: 80053; 80061; 83036; 84153 ==

== ENCOUNTER → 2021-04-29 11:04 | Outpatient (BNVA) | payer MEDICAID, SELFPAY | PROVIDERS: PCP Family Medicine Adult Medicine; Visit Provider Internal Medicine | DX: E11.65 Type 2 diabetes mellitus with hyperglycemia (principal); E11.59 Type 2 diabetes mellitus with other circulatory complications; I25.10 Atherosclerotic heart disease of native coronary artery without angina pectoris; E78.2 Mixed hyperlipidemia; Z79.4 Long term (current) use of insulin; Z79.84 Long term (current) use of oral hypoglycemic drugs | CPT/HCPCS: 99214 ==

== ENCOUNTER → 2021-06-04 14:45 | Outpatient (BNVA) | payer MEDICAID, SELFPAY | PROVIDERS: PCP Family Medicine Adult Medicine; Visit Provider Psychiatry & Neurology Psychiatry | DX: F41.1 Generalized anxiety disorder (principal); F33.0 Major depressive disorder, recurrent, mild; Z98.890 Other specified postprocedural states | CPT/HCPCS: 99213 ==

== ENCOUNTER → 2021-06-05 11:14 | Outpatient (BNVA) | payer MEDICAID, SELFPAY | PROVIDERS: PCP Family Medicine Adult Medicine; Visit Provider Family Medicine Adult Medicine | DX: I10 Essential (primary) hypertension (principal); E11.65 Type 2 diabetes mellitus with hyperglycemia; E78.2 Mixed hyperlipidemia | CPT/HCPCS: 80053; 80061; 83036; 85025 ==

== ENCOUNTER 2021-07-17 14:16 | Outpatient (CLI) | payer MEDICAID, SELFPAY ==
--- NOTE | 2021-07-17 14:00 | USCV_ITS ---
Humble Cornelius Age: 61 Gender: M : 1960 Exam Date: 07/17/2021 14:36 Ordering Phys: Panfilo Garza MD Technologist: BRITTNEY Exam Location: [facility] [place] Indication: BILATERAL LEG PAIN HISTORY: Patient has history of. DVT. PROCEDURES: Venous duplex imaging was performed in bilateral lower extremities. The following venous structures were evaluated: common femoral vein, profunda vein, proximal portion of the greater saphenous vein, superficial femoral vein, and the popliteal vein. In addition, the posterior tibial and peroneal trunk were evaluated. FINDINGS: There appears to be thrombus still present throughout Rt femoral vein. There appears to be partial thrombus in the Rt popliteal and peroneal veins. All other veins appear free of thrombus and compressible at this time. CONCLUSIONS Residual or recurrent partially occlusive thrombus Right femoral vein. Non-occlusive thrombus Right popliteal and peroneal veins. No evidence of left lower extremity DVT. Comparison 08/23/20 Hunter Troncoso MD (Electronically Signed) Final Date: 17 July 2021 15:21 S
== END 2021-07-17 14:17 | disposition home or self-care (01) ==
LOC: RAD 14:18
PROVIDERS: PCP Family Medicine Adult Medicine; Visit Provider Family Medicine Adult Medicine
DX: M79.604 Pain in right leg (principal); M79.605 Pain in left leg; I82.431 Acute embolism and thrombosis of right popliteal vein
CPT/HCPCS: 93970

== ENCOUNTER 2021-07-24 08:12 | Day surgery (SDC) | payer MEDICAID, SELFPAY ==
[2021-07-22 13:16] VITALS: BMI 34.7
[2021-07-24 08:37] VITALS: BP 157/94; PULSE 66; RESP 18; TEMP 36.7; O2SAT 95
[2021-07-24] MEDS: sodium chloride 0.9% 1,000 ML 30 ML IV (08:40)
[2021-07-24] MEDS: insulin regular-human 10 UNIT in SYRINGE 1 EACH IVP (09:18)
--- NOTE | 2021-07-24 09:43 | ANES.PREANE2 ---
Pre-Anesthetic Assessment Height/Weight: Height 1.68 m Weight 97.522 kg Temp Pulse Resp BP Pulse Ox 98.0 F 66 18 157/94 95 07/24/21 08:37 07/24/21 08:37 07/24/21 08:37 07/24/21 08:37 07/24/21 08:37 Preop Diagnosis: upper gi symptoms Operation Date: 07/24/21 09:30 Proposed Procedures p EGD [id number]/z86.010/r10.13(Not Applicable) - Ahsan Dai MD s Colonoscopy(Not Applicable) - Ahsan Dai MD Familial anesthetic complications: None Was Beta Mike taken within 24 hours: N/A (Stopped taking carvedilol 07/22/21) Was Clonidine taken within 24 hours: N/A Last intake: Intake Last Liquid Date 07/24/21 Last Liquid Time 05:30 Last Solid Date 07/22/21 Last Solid Time 18:30 Social Tobacco and No alcohol Exam alert, oriented x 3 and regular rate & rhythm Diminished breath sounds b/l Airway Submandibular: within normal limits Cervical ROM: within normal limits Mallampati: Class I Comments: Comments: Missing many teeth, denies loose teeth Pulmonary Chronic Obstructive Pulmonary Disease and Sleep Apnea CV/HEM Coronary Artery Disease, Deep Vein Thrombosis (On anticoagulation hx of PE) and Hypertension METS = 4 Cath report 11/2019 Conclusions ? There is mild coronary artery disease with one vessel disease. 06/30/2019 Stress Test CONCLUSION: 1. Normal EKG response to LexiScan infusion. 2. No LexiScan induced chest pain or cardiac arrhythmia. 3. Normal blood pressure and heart rate response. 4. Sestamibi/sestamibi perfusion scan pending; see separate report. Metabolic Diabetes Mellitus S/P 10 units insulin today for hyperglycemia [facility] None reported Neuropsych Anxiety and Depression Anesthetic Plan ASA status: 3 Anesthesia: Anesthesia Evaluation, General and MAC Other: I discussed with the patient risks, goals, and benefits of MAC and general anesthesia. We discussed spectrum of MAC anesthesia including conversion to general as well as possibility of recall of intraoperative stimuli including discomfort/pain. Patient agrees to proceed with MAC. Risk of > 500 ml blood loss (7ml/kg in children): No Medications/Allergies Home Medications Medication Instructions Recorded Confirmed Last Taken Type brimonidine 0.1 % eye drops 1 drop OPHTHALMIC (EYE) BID ml 05/17/19 07/24/21 07/22/21 History (Alphagan P) CMC Brace #1 ea 07/20/19 07/24/21 07/22/21 Rx CPAP MASK AND TUBING #1 ea 08/08/20 07/24/21 07/22/21 Rx DIABETIC SHOES #1 ea 08/08/20 07/24/21 07/22/21 Rx lancets 33 gauge (OneTouch Delica #300 ea 02/08/21 07/24/21 07/22/21 Rx Lancets) pen needle, diabetic 31 gauge x #200 ea 02/08/21 07/24/21 07/22/21 Rx 1/4 (TechLITE Pen Needle) insulin glargine 100 unit/mL (3 50 unit (0.5 mL) SUBCUT DAILY #15 04/18/21 07/24/21 07/22/21 Rx mL) subcutaneous pen (Lantus ml Solostar U-100 Insulin) liraglutide 0.6 mg/0.1 mL (18 mg/3 1.8 mg (0.3 mL) SUBCUT DAILY #6 ml 04/29/21 07/24/21 07/22/21 Rx mL) subcutaneous pen injector (Caring in Placeza 2-Zack) carvedilol 6.25 mg tablet (Coreg) 6.25 mg PO BID #60 tab 05/05/21 07/24/21 07/22/21 Rx nitroglycerin 0.4 mg sublingual See Rx Instructions .ROUTE 05/20/21 07/24/21 07/22/21 Rx tablet .COMPLEX #25 tab blood sugar diagnostic (OneTouch #100 ea 05/27/21 07/24/21 07/22/21 Rx Ultra Test) Fast form thumb spica ea 06/04/21 07/24/21 07/22/21 History buspirone 5 mg tablet 5 mg PO TID #90 tab 06/04/21 07/24/21 07/22/21 Rx mirtazapine 30 mg tablet 30 mg PO QDAY #30 tab 06/04/21 07/24/21 07/22/21 Rx paroxetine HCl 30 mg tablet 60 mg PO QDAY #60 tab 06/04/21 07/24/21 07/22/21 Rx empagliflozin 25 mg tablet 25 mg PO QAM #30 tab 06/06/21 07/24/21 07/22/21 Rx (Jardiance) rosuvastatin 40 mg tablet 40 mg PO DAILY #90 tab 06/06/21 07/24/21 07/22/21 Rx albuterol sulfate 90 mcg/actuation 2 puff INHALATION Q6H PRN 07/22/21 07/24/21 07/22/21 History aerosol inhaler (Ventolin HFA) amlodipine 10 mg tablet 10 mg PO DAILY 07/22/21 07/24/21 07/23/21 History baclofen 10 mg tablet 10 mg PO BID 07/22/21 07/24/21 07/22/21 History clonidine HCl 0.2 mg tablet 0.2 mg PO BID 07/22/21 07/24/21 07/22/21 History fluticasone 500 mcg-salmeterol 50 1 inh INHALATION BID 07/22/21 07/24/21 07/22/21 History mcg/dose blistr powdr for inhalation (Advair Diskus) furosemide 40 mg tablet 40 mg PO DAILY 07/22/21 07/24/21 07/22/21 History latanoprost 0.005 % eye drops 1 drp OPHTHALMIC (EYE) BEDTIME 07/22/21 07/24/21 07/22/21 History losartan 50 mg tablet 50 mg PO BID 07/22/21 07/24/21 07/22/21 History metformin 1,000 mg tablet 1,000 mg PO BID 07/22/21 07/24/21 07/22/21 History niacin 500 mg tablet,extended 500 mg PO DAILY 07/22/21 07/24/21 07/22/21 History release 24 hr potassium chloride 20 mEq 20 meq PO DAILY 07/22/21 07/24/21 07/22/21 History tablet,extended release tiotropium bromide 18 mcg capsule 1 cap INHALATION DAILY 07/22/21 07/24/21 07/22/21 History with inhalation device (Spiriva with HandiHaler) rivaroxaban 20 mg tablet (Xarelto) See Rx Instructions .ROUTE 07/23/21 07/24/21 07/22/21 Rx .COMPLEX #90 tablet Allergies Allergy/AdvReac Type Severity Reaction Status Date / Time No Known Allergies Allergy Verified 07/24/21 08:34 Current Medications Generic Name Dose Route Start Last Admin Trade Name Freq PRN Reason Stop Dose Admin Sodium Chloride 1,000 mls @ 30 mls/hr 07/24/21 08:30 07/24/21 08:40 Sodium Chloride 0.9% IV 07/25/21 08:29 30 mls/hr .Q24H EVA Administration PFSH Anesthesia Medical History Arthritis of carpometacarpal (CMC) joint of left thumb CAD (coronary artery disease) COPD (chronic obstructive pulmonary disease) 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 Justin Sands 04/28/2011 C4-C5, C5-C6, C6-C7 ACDFF History of colonoscopy (2015) Repeat in 5 years History of esophagogastroduodenoscopy (EGD) (03/07/19) 05/31/2019: Gastric erosions History of lower leg fracture with surgical repair History of thumb surgery left thumb CMC LRTI Family History Father CAD (coronary artery disease) In his 50's. Mother CAD (coronary artery disease) She had heart attack in her 40's. Other Cancer Diabetes Heart disease Hyperlipidemia Hypertension Denies family history of Anesthesia complication Bleeding disorder Social History Smoking and tobacco status: current every day smoker pipe Years smoked pipe: 40 Pipe Details: 10-50 bowls/day Quit status (tobacco): has tried quititng Number of times tried to quit tobacco: 1 Second hand smoke exposure: No Smoking risk assessment/counseling performed?: Yes Tobacco counseling given: counseling >3 minutes Alcohol intake: former Lives independently: Yes Marital status: Single Current occupational status: disabled Data Anesthesia Cardiac Studies: Sestamibi Stress Test (Cardiology) 06/30/19
--- NOTE | 2021-07-24 10:24 | W.PM.OPSFHP ---
Same Day Surgery H&P Indication for Procedure/HPI DATE OF PROCEDURE: July 24, 2021 CHIEF COMPLAINT/INDICATIONFOR SURGICAL PROCEDURE: EGD/colon PREOP DIAGNOSIS: upper gi symptoms PLANNED PROCEDURE: Operation Date: 07/24/21 09:30 Proposed Procedures p EGD [id number]/r10.13(Not Applicable) - Ahsan Dai MD s Colonoscopy(Not Applicable) - Ahsan Dai MD Medications/Allergies* Home Medications Medication Instructions Recorded Confirmed Type brimonidine 0.1 % eye drops 1 drop OPHTHALMIC (EYE) BID ml 05/17/19 07/24/21 History (Alphagan P) Fast form thumb spica ea 06/04/21 07/24/21 History albuterol sulfate 90 mcg/actuation 2 puff INHALATION Q6H PRN 07/22/21 07/24/21 History aerosol inhaler (Ventolin HFA) amlodipine 10 mg tablet 10 mg PO DAILY 07/22/21 07/24/21 History baclofen 10 mg tablet 10 mg PO BID 07/22/21 07/24/21 History clonidine HCl 0.2 mg tablet 0.2 mg PO BID 07/22/21 07/24/21 History fluticasone 500 mcg-salmeterol 50 1 inh INHALATION BID 07/22/21 07/24/21 History mcg/dose blistr powdr for inhalation (Advair Diskus) furosemide 40 mg tablet 40 mg PO DAILY 07/22/21 07/24/21 History latanoprost 0.005 % eye drops 1 drp OPHTHALMIC (EYE) BEDTIME 07/22/21 07/24/21 History losartan 50 mg tablet 50 mg PO BID 07/22/21 07/24/21 History metformin 1,000 mg tablet 1,000 mg PO BID 07/22/21 07/24/21 History niacin 500 mg tablet,extended 500 mg PO DAILY 07/22/21 07/24/21 History release 24 hr potassium chloride 20 mEq 20 meq PO DAILY 07/22/21 07/24/21 History tablet,extended release tiotropium bromide 18 mcg capsule 1 cap INHALATION DAILY 07/22/21 07/24/21 History with inhalation device (Spiriva with HandiHaler) Allergies/Adverse Reactions Allergy/AdvReac Type Severity Reaction Status Date / Time No Known Allergies Allergy Verified 07/24/21 08:34 Current Medications: Generic Name Dose Route Start Last Admin Trade Name Mleissa PRN Reason Stop Dose Admin Sodium Chloride 1,000 mls @ 30 mls/hr 07/24/21 08:30 07/24/21 08:40 Sodium Chloride 0.9% IV 07/25/21 08:29 30 mls/hr .Q24H EVA Administration Pertinent History/Comorbid Conditions* Medical History (Updated 06/18/21 @ 11:15 by Ahsan Dai MD) Arthritis of carpometacarpal (CMC) joint of left thumb CAD (coronary artery disease) COPD (chronic obstructive pulmonary disease) Coronary artery disease due to type 2 diabetes mellitus DVT (deep venous thrombosis) DVT of leg (deep venous thrombosis) Glaucoma (increased eye pressure) HTN, goal below 130/80 Hyperlipidemia Obstructive sleep apnea Psychiatric care Pulmonary embolism Social anxiety disorder Type 2 diabetes mellitus Surgical History (Updated 06/18/21 @ 11:15 by Ahsan Dai MD) H/O circumcision H/O neck surgery Neck Disc Surgery; Dr. Justin Sands 04/28/2011 C4-C5, C5-C6, C6-C7 ACDFF History of colonoscopy (2015) Repeat in 5 years History of esophagogastroduodenoscopy (EGD) (03/07/19) 05/31/2019: Gastric erosions History of lower leg fracture with surgical repair History of thumb surgery left thumb CMC LRTI Family History (Updated 06/08/19 @ 15:21 by Vickie Grullon MD) Diabetes CAD (coronary artery disease) Father In his 50's. Mother She had heart attack in her 40's. Heart disease Hyperlipidemia Cancer Hypertension Denies family history of Anesthesia complication Bleeding disorder Social History Smoking and tobacco status: current every day smoker pipe Years smoked pipe: 40 Pipe Details: 10-50 bowls/day Quit status (tobacco): has tried quititng Number of times tried to quit tobacco: 1 Second hand smoke exposure: No Smoking risk assessment/counseling performed?: Yes Tobacco counseling given: counseling >3 minutes Alcohol intake: former Lives independently: Yes Marital status: Single Current occupational status: disabled Pertinent Exam Findings alert, oriented x 3 and regular rate & rhythm Recommendations Surgery/Procedure today Coding Level of Care Code Acute Conveyor Loader for Rohang Thelma
--- NOTE | 2021-07-24 10:52 | ANE.PACU2 ---
Inpatient post-anesthesia follow up: Airway intact: Yes Vital signs: Temperature 98.0 F Pulse Rate 66 Respiratory Rate 18 Blood Pressure 157/94 Pulse Oximetry 95 Oxygen Delivery Me thod Room Air Oxygen Flow Rate Fraction of Inspir ed Oxygen Hydration adequate: Yes Nausea and vomiting: No Pain level: 1 Mental status: Baseline
[2021-07-24 11:11] VITALS: BP 117/79; PULSE 69; RESP 17; TEMP 36.7; O2SAT 99
== END 2021-07-24 11:18 | disposition home or self-care (01) ==
PROVIDERS: PCP Family Medicine Adult Medicine; Visit Provider Surgery
PROC: 0DJD8ZZ Inspection of Lower Intestinal Tract, Via Natural or Artificial Opening Endoscopic (ICD-10-PCS; CPT 45378; 2021-07-24 09:30)
PROC: 0DJ08ZZ Inspection of Upper Intestinal Tract, Via Natural or Artificial Opening Endoscopic (ICD-10-PCS; CPT 43235; 2021-07-24 09:30)
DX: R10.13 Epigastric pain (principal); Z86.010 Personal history of colon polyps; D12.4 Benign neoplasm of descending colon; K29.70 Gastritis, unspecified, without bleeding; J44.9 Chronic obstructive pulmonary disease, unspecified; I25.10 Atherosclerotic heart disease of native coronary artery without angina pectoris; Z86.718 Personal history of other venous thrombosis and embolism; Z79.01 Long term (current) use of anticoagulants; I10 Essential (primary) hypertension; E11.9 Type 2 diabetes mellitus without complications; F41.9 Anxiety disorder, unspecified; F32.9 Major depressive disorder, single episode, unspecified; Z79.4 Long term (current) use of insulin; G47.33 Obstructive sleep apnea (adult) (pediatric); F17.290 Nicotine dependence, other tobacco product, uncomplicated
CPT/HCPCS: 43239; 45380; 82274; 83630; 87493; 87506; 88305; J1815; J2704; J7030

== ENCOUNTER → 2021-08-05 10:43 | Outpatient (BNVA) | payer MEDICAID, SELFPAY | PROVIDERS: PCP Family Medicine Adult Medicine; Visit Provider Surgery | DX: Z98.890 Other specified postprocedural states (principal); Z86.010 Personal history of colon polyps; R10.13 Epigastric pain | CPT/HCPCS: 99212 ==

== ENCOUNTER → 2021-08-26 13:50 | Outpatient (BNVA) | payer MEDICAID, SELFPAY | PROVIDERS: PCP Family Medicine Adult Medicine; Visit Provider Internal Medicine | DX: E11.65 Type 2 diabetes mellitus with hyperglycemia (principal); E11.59 Type 2 diabetes mellitus with other circulatory complications; E11.22 Type 2 diabetes mellitus with diabetic chronic kidney disease; N18.9 Chronic kidney disease, unspecified; I25.10 Atherosclerotic heart disease of native coronary artery without angina pectoris; R10.9 Unspecified abdominal pain; R11.0 Nausea; F17.290 Nicotine dependence, other tobacco product, uncomplicated; Z79.4 Long term (current) use of insulin | CPT/HCPCS: 99214 ==

== ENCOUNTER → 2021-08-27 12:42 | Outpatient (BNVA) | payer MEDICAID, SELFPAY | PROVIDERS: PCP Family Medicine Adult Medicine; Visit Provider Psychiatry & Neurology Psychiatry | DX: F41.1 Generalized anxiety disorder (principal); F33.0 Major depressive disorder, recurrent, mild; M18.12 Unilateral primary osteoarthritis of first carpometacarpal joint, left hand; Z98.890 Other specified postprocedural states | CPT/HCPCS: 99213 ==

== ENCOUNTER → 2021-09-04 11:54 | Outpatient (BNVA) | payer MEDICAID, SELFPAY | PROVIDERS: PCP Family Medicine Adult Medicine; Visit Provider Family Medicine Adult Medicine | DX: E11.65 Type 2 diabetes mellitus with hyperglycemia (principal); I10 Essential (primary) hypertension; R10.9 Unspecified abdominal pain | CPT/HCPCS: 80053; 82150; 83036; 83690; 85025 ==

== ENCOUNTER 2021-09-25 08:25 | Day surgery (SDC) | payer MEDICAID, SELFPAY ==
[2021-09-23 10:19] VITALS: BMI 33.4
[2021-09-25 08:40] VITALS: BP 151/99; PULSE 83; RESP 20; TEMP 36.2; O2SAT 96
[2021-09-25] MEDS: sodium chloride 0.9% 1,000 ML 30 ML IV (08:56)
--- NOTE | 2021-09-25 09:09 | ANES.PREANE2 ---
Pre-Anesthetic Assessment Height/Weight: Height 1.68 m Weight 93.894 kg Temp Pulse Resp BP Pulse Ox 97.2 F L 83 20 H 151/99 96 09/25/21 08:40 09/25/21 08:40 09/25/21 08:40 09/25/21 08:40 09/25/21 08:40 Preop Diagnosis: diagnostic Operation Date: 09/25/21 10:00 Proposed Procedures p Colonoscopy [id number](Not Applicable) - Ahsan Dai MD Last intake: Intake Last Liquid Date 09/24/21 Last Liquid Time 23:00 Last Solid Date 09/23/21 Last Solid Time 18:00 Airway Submandibular: within normal limits Mallampati: Class II Pulmonary COPD CV/HEM CHF, CAD, HTN GI GERD Metabolic DM very poorly controlled (BS routinely 300's), Dyslipidemia Anesthetic Plan ASA status: 4 Anesthesia: MAC Medications/Allergies Home Medications Medication Instructions Recorded Confirmed Last Taken Type lancets 33 gauge (OneTouch Delica #300 ea 02/08/21 09/04/21 07/22/21 Rx Lancets) pen needle, diabetic 31 gauge x #200 ea 02/08/21 09/04/21 07/22/21 Rx 1/4 (TechLITE Pen Needle) carvedilol 6.25 mg tablet (Coreg) 6.25 mg PO BID #60 tab 05/05/21 09/25/21 09/24/21 Rx empagliflozin 25 mg tablet 25 mg PO QAM #30 tab 06/06/21 09/25/21 09/23/21 Rx (Jardiance) rosuvastatin 40 mg tablet 40 mg PO DAILY #90 tab 06/06/21 09/25/21 09/23/21 Rx albuterol sulfate 90 mcg/actuation 2 puff INHALATION Q6H PRN 07/22/21 09/25/21 1 Week Ago History aerosol inhaler (Ventolin HFA) ~09/18/21 baclofen 10 mg tablet 10 mg PO BID 07/22/21 09/25/21 09/23/21 History clonidine HCl 0.2 mg tablet 0.2 mg PO BID 07/22/21 09/25/21 09/23/21 History fluticasone 500 mcg-salmeterol 50 1 inh INHALATION BID 07/22/21 09/25/21 09/23/21 History mcg/dose blistr powdr for inhalation (Advair Diskus) furosemide 40 mg tablet 40 mg PO DAILY 07/22/21 09/25/21 09/23/21 History latanoprost 0.005 % eye drops 1 drp OPHTHALMIC (EYE) BEDTIME 07/22/21 09/25/21 09/23/21 History losartan 50 mg tablet 50 mg PO BID 07/22/21 09/25/21 09/23/21 History metformin 1,000 mg tablet 1,000 mg PO BID 07/22/21 09/25/21 09/23/21 History potassium chloride 20 mEq 20 meq PO DAILY 07/22/21 09/25/21 09/23/21 History tablet,extended release tiotropium bromide 18 mcg capsule 1 cap INHALATION DAILY 07/22/21 09/25/21 09/23/21 History with inhalation device (Spiriva with HandiHaler) rivaroxaban 20 mg tablet (Xarelto) See Rx Instructions .ROUTE 07/23/21 09/25/21 09/23/21 Rx .COMPLEX #90 tablet niacin 500 mg tablet,extended 500 mg PO DAILY #90 tab 07/30/21 09/25/21 09/23/21 Rx release 24 hr peg 3350-electrolytes 236 240 ml PO Q10M #4000 ml 08/20/21 09/23/21 Unknown Rx gram-22.74 gram-6.74 gram-5.86 gram solution (Golytely) buspirone 5 mg tablet 5 mg PO TID #90 tab 08/27/21 09/25/21 09/23/21 Rx mirtazapine 30 mg tablet 30 mg PO QDAY #30 tab 08/27/21 09/25/21 09/23/21 Rx paroxetine HCl 30 mg tablet 60 mg PO QDAY #60 tab 08/27/21 09/25/21 09/23/21 Rx insulin glargine 100 unit/mL (3 50 unit (0.5 mL) SUBCUT DAILY #15 08/29/21 09/25/21 09/23/21 Rx mL) subcutaneous pen (Lantus ml Solostar U-100 Insulin) nitroglycerin 0.4 mg sublingual See Rx Instructions .ROUTE 08/29/21 09/25/21 6 Months Ago Rx tablet .COMPLEX #25 tab ~03/27/21 pantoprazole 40 mg tablet,delayed 40 mg PO DAILY 30 Days #30 tab 08/30/21 09/25/21 09/23/21 Rx release (Protonix) blood sugar diagnostic (OneTouch #100 ea 09/02/21 09/04/21 Unknown Rx Ultra Test) DIABETIC SHOES #1 ea 09/05/21 09/05/21 Unknown Rx CPAP MASK AND TUBING #1 ea 09/17/21 Unknown Rx Increase CPAP settings tto 14-18 #1 ea 09/19/21 09/19/21 Unknown Rx cm setting. liraglutide 0.6 mg/0.1 mL (18 mg/3 1.8 mg (0.3 mL) SUBCUT DAILY #9 ml 09/19/21 09/25/21 09/23/21 Rx mL) subcutaneous pen injector (Victoza 2-Zack) amlodipine 10 mg tablet 10 mg PO DAILY 09/23/21 09/25/21 09/23/21 History Allergies Allergy/AdvReac Type Severity Reaction Status Date / Time No Known Allergies Allergy Verified 09/23/21 10:13 Current Medications Generic Name Dose Route Start Last Admin Trade Name Freq PRN Reason Stop Dose Admin Sodium Chloride 1,000 mls @ 30 mls/hr 09/25/21 08:45 09/25/21 08:56 Sodium Chloride 0.9% IV 09/26/21 08:44 30 mls/hr .Q24H EVA Administration PFSH Anesthesia Medical History (Updated 09/04/21 @ 12:13 by Panfilo Garza MD) Abdominal pain Arthritis of carpometacarpal (CMC) joint of left thumb Arthritis of carpometacarpal (CMC) joint of right thumb CAD (coronary artery disease) COPD (chronic obstructive pulmonary disease) 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 Justin Sands 04/28/2011 C4-C5, C5-C6, C6-C7 ACDFF History of colonoscopy (2015) Repeat in 5 years History of esophagogastroduodenoscopy (EGD) (03/07/19) 05/31/2019: Gastric erosions 08/09 : gastritis History of lower leg fracture with surgical repair History of thumb surgery left thumb CMC LRTI Status post laparoscopic cholecystectomy Family History Father CAD (coronary artery disease) In his 50's. Mother CAD (coronary artery disease) She had heart attack in her 40's. Other Cancer Diabetes Heart disease Hyperlipidemia Hypertension Denies family history of Anesthesia complication Bleeding disorder Social History Smoking and tobacco status: current every day smoker pipe Pipes smoked per week: 50 Years smoked pipe: 40 Pipe Details: 10-50 bowls/day Quit status (tobacco): has tried quititng Number of times tried to quit tobacco: 1 Second hand smoke exposure: No Smoking risk assessment/counseling performed?: Yes Tobacco counseling given: counseling >3 minutes Alcohol intake: former Lives independently: Yes Marital status: Single Current occupational status: disabled Data Anesthesia Cardiac Studies: Sestamibi Stress Test (Cardiology) 06/30/19
[2021-09-25 11:04] VITALS: BP 118/67; PULSE 71; RESP 18; TEMP 36.1; O2SAT 99
--- NOTE | 2021-09-25 11:08 | W.PM.OPSFHP ---
Same Day Surgery H&P Indication for Procedure/HPI DATE OF PROCEDURE: September 25, 2021 CHIEF COMPLAINT/INDICATIONFOR SURGICAL PROCEDURE: Colonoscopy PREOP DIAGNOSIS: diagnostic PLANNED PROCEDURE: Operation Date: 09/25/21 10:00 Proposed Procedures p Colonoscopy [id number](Not Applicable) - Ahsan Dai MD Medications/Allergies* Home Medications Medication Instructions Recorded Confirmed Type albuterol sulfate 90 mcg/actuation 2 puff INHALATION Q6H PRN 07/22/21 09/25/21 History aerosol inhaler (Ventolin HFA) baclofen 10 mg tablet 10 mg PO BID 07/22/21 09/25/21 History clonidine HCl 0.2 mg tablet 0.2 mg PO BID 07/22/21 09/25/21 History fluticasone 500 mcg-salmeterol 50 1 inh INHALATION BID 07/22/21 09/25/21 History mcg/dose blistr powdr for inhalation (Advair Diskus) furosemide 40 mg tablet 40 mg PO DAILY 07/22/21 09/25/21 History latanoprost 0.005 % eye drops 1 drp OPHTHALMIC (EYE) BEDTIME 07/22/21 09/25/21 History losartan 50 mg tablet 50 mg PO BID 07/22/21 09/25/21 History metformin 1,000 mg tablet 1,000 mg PO BID 07/22/21 09/25/21 History potassium chloride 20 mEq 20 meq PO DAILY 07/22/21 09/25/21 History tablet,extended release tiotropium bromide 18 mcg capsule 1 cap INHALATION DAILY 07/22/21 09/25/21 History with inhalation device (Spiriva with HandiHaler) amlodipine 10 mg tablet 10 mg PO DAILY 09/23/21 09/25/21 History Allergies/Adverse Reactions Allergy/AdvReac Type Severity Reaction Status Date / Time No Known Allergies Allergy Verified 09/23/21 10:13 Current Medications: Generic Name Dose Route Start Last Admin Trade Name Freq PRN Reason Stop Dose Admin Sodium Chloride 1,000 mls @ 30 mls/hr 09/25/21 08:45 09/25/21 08:56 Sodium Chloride 0.9% IV 09/26/21 08:44 30 mls/hr .Q24H EVA Administration Pertinent History/Comorbid Conditions* Medical History (Updated 09/04/21 @ 12:13 by Panfilo Garza MD) Abdominal pain Arthritis of carpometacarpal (CMC) joint of left thumb Arthritis of carpometacarpal (CMC) joint of right thumb CAD (coronary artery disease) COPD (chronic obstructive pulmonary disease) Coronary artery disease due to type 2 diabetes mellitus DVT (deep venous thrombosis) DVT of leg (deep venous thrombosis) Glaucoma (increased eye pressure) HTN, goal below 130/80 Hyperlipidemia Obstructive sleep apnea Psychiatric care Pulmonary embolism Social anxiety disorder Type 2 diabetes mellitus Surgical History (Updated 08/05/21 @ 12:34 by Ahsan Dai MD) H/O circumcision H/O neck surgery Neck Disc Surgery; Dr. Justin Sands 04/28/2011 C4-C5, C5-C6, C6-C7 ACDFF History of colonoscopy (2015) Repeat in 5 years History of esophagogastroduodenoscopy (EGD) (03/07/19) 05/31/2019: Gastric erosions 08/09 : gastritis History of lower leg fracture with surgical repair History of thumb surgery left thumb CMC LRTI Status post laparoscopic cholecystectomy Family History (Updated 06/08/19 @ 15:21 by Vickie Grullon MD) Diabetes CAD (coronary artery disease) Father In his 50's. Mother She had heart attack in her 40's. Heart disease Hyperlipidemia Cancer Hypertension Denies family history of Anesthesia complication Bleeding disorder Social History Smoking and tobacco status: current every day smoker pipe Pipes smoked per week: 50 Years smoked pipe: 40 Pipe Details: 10-50 bowls/day Quit status (tobacco): has tried quititng Number of times tried to quit tobacco: 1 Second hand smoke exposure: No Smoking risk assessment/counseling performed?: Yes Tobacco counseling given: counseling >3 minutes Alcohol intake: former Lives independently: Yes Marital status: Single Current occupational status: disabled Pertinent Exam Findings alert, oriented x 3 and regular rate & rhythm Recommendations Surgery/Procedure today Coding Level of Care Code 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
[2021-09-25 11:16] VITALS: BP 165/97; PULSE 63; RESP 18; O2SAT 97
--- NOTE | 2021-09-25 13:23 | ANE.PACU2 ---
Inpatient post-anesthesia follow up: Vital signs: Temperature 97 F Pulse Rate 63 Respiratory Rate 18 Blood Pressure 165/97 Pulse Oximetry 97 Oxygen Delivery Me thod Room Air Oxygen Flow Rate Fraction of Inspir ed Oxygen Hydration adequate: Yes Nausea and vomiting: No Pain level: 1 Mental status: Baseline
== END 2021-09-25 11:22 | disposition home or self-care (01) ==
PROVIDERS: PCP Family Medicine Adult Medicine; Visit Provider Surgery
PROC: 0DJD8ZZ Inspection of Lower Intestinal Tract, Via Natural or Artificial Opening Endoscopic (ICD-10-PCS; CPT 45378; principal; 2021-09-25 10:00)
DX: D12.4 Benign neoplasm of descending colon (principal); D12.5 Benign neoplasm of sigmoid colon; K57.30 Diverticulosis of large intestine without perforation or abscess without bleeding; K64.8 Other hemorrhoids; Z86.010 Personal history of colon polyps; I25.10 Atherosclerotic heart disease of native coronary artery without angina pectoris; J44.9 Chronic obstructive pulmonary disease, unspecified; Z86.718 Personal history of other venous thrombosis and embolism; E78.5 Hyperlipidemia, unspecified; G47.33 Obstructive sleep apnea (adult) (pediatric); E11.69 Type 2 diabetes mellitus with other specified complication; F17.290 Nicotine dependence, other tobacco product, uncomplicated; I11.0 Hypertensive heart disease with heart failure; I50.9 Heart failure, unspecified; Z86.711 Personal history of pulmonary embolism
CPT/HCPCS: 45380; 45385; 88305; J2704; J7030

== ENCOUNTER → 2021-09-27 10:53 | Outpatient (BNVA) | payer MEDICAID, SELFPAY | PROVIDERS: PCP Family Medicine Adult Medicine; Visit Provider Internal Medicine | DX: E11.65 Type 2 diabetes mellitus with hyperglycemia (principal); E78.2 Mixed hyperlipidemia; F17.290 Nicotine dependence, other tobacco product, uncomplicated; Z79.4 Long term (current) use of insulin; Z79.84 Long term (current) use of oral hypoglycemic drugs | CPT/HCPCS: 99204 ==

== ENCOUNTER → 2021-10-09 12:55 | Outpatient (BNVA) | payer MEDICAID, SELFPAY | PROVIDERS: PCP Family Medicine Adult Medicine; Referring Provider Family Medicine Adult Medicine; Visit Provider Orthopaedic Surgery | DX: M18.11 Unilateral primary osteoarthritis of first carpometacarpal joint, right hand (principal); M79.641 Pain in right hand | CPT/HCPCS: 73130; 99213 ==

== ENCOUNTER 2021-10-09 14:05 | Outpatient (CLI) | payer MEDICAID, SELFPAY | END 2021-10-09 14:06 | disposition home or self-care (01) | LOC: SPT 14:05 | PROVIDERS: PCP Family Medicine Adult Medicine; Visit Provider Orthopaedic Surgery | DX: Z46.89 Encounter for fitting and adjustment of other specified devices (principal); M18.11 Unilateral primary osteoarthritis of first carpometacarpal joint, right hand | CPT/HCPCS: 97760; L3924 ==

== ENCOUNTER → 2021-10-22 09:54 | Outpatient (BNVA) | payer MEDICAID, SELFPAY | PROVIDERS: PCP Family Medicine Adult Medicine; Visit Provider Surgery | DX: Z09 Encounter for follow-up examination after completed treatment for conditions other than malignant neoplasm (principal); R10.9 Unspecified abdominal pain | CPT/HCPCS: 99213 ==

== ENCOUNTER → 2021-12-03 10:40 | Outpatient (BNVA) | payer MEDICAID, SELFPAY | PROVIDERS: PCP Family Medicine Adult Medicine; Visit Provider Family Medicine Adult Medicine | DX: E78.5 Hyperlipidemia, unspecified (principal); I10 Essential (primary) hypertension; E11.65 Type 2 diabetes mellitus with hyperglycemia; M54.30 Sciatica, unspecified side; I82.409 Acute embolism and thrombosis of unspecified deep veins of unspecified lower extremity | CPT/HCPCS: 80053; 80061; 83036; 85025 ==

== ENCOUNTER 2022-01-08 09:09 | Outpatient (CLI) | payer MEDICAID, SELFPAY ==
--- NOTE | 2022-01-08 09:30 | USCV_ITS ---
Humble Cornelius Age: 61 Gender: M : 1960 Exam Date: 01/08/2022 09:34 Ordering Phys: Panfilo Garza MD Technologist: JUAN Exam Location: [facility] – [place] Indication: hx of DVT. Lt leg pain HISTORY: HX OF DVT. CURRENTLY ON XARELTO PROCEDURES: Venous duplex imaging was performed in bilateral lower extremities. The following venous structures were evaluated: common femoral vein, profunda vein, proximal portion of the greater saphenous vein, superficial femoral vein, and the popliteal vein. In addition, the posterior tibial and peroneal trunk were evaluated. Serial compression, augmentation maneuvers, and spectral Doppler flow evaluation were performed. FINDINGS: There appears to be thrombus still present throughout Rt femoral vein. There appears to be partial thrombus in the Rt popliteal. All other veins examined appear free of thrombus and are compressible at this time. CONCLUSIONS Comparison 07/17/21 Persistent thrombus Right femoral vein appears unchanged. Partial non occlusive thrombus Right popliteal vein appears slightly improved. Remainder BLE veins are patent. Hunter Troncoso MD (Electronically Signed) Final Date: 08 January 2022 12:19 S
== END 2022-01-08 09:10 | disposition home or self-care (01) ==
PROVIDERS: PCP Family Medicine Adult Medicine; Visit Provider Family Medicine Adult Medicine
DX: M79.605 Pain in left leg (principal); I82.890 Acute embolism and thrombosis of other specified veins
CPT/HCPCS: 93970

== ENCOUNTER → 2022-01-29 10:40 | Outpatient (BNVA) | payer MEDICAID, SELFPAY | PROVIDERS: PCP Family Medicine Adult Medicine; Visit Provider Internal Medicine Cardiovascular Disease | DX: R00.2 Palpitations (principal); R06.02 Shortness of breath; I10 Essential (primary) hypertension; E78.2 Mixed hyperlipidemia; F17.290 Nicotine dependence, other tobacco product, uncomplicated | CPT/HCPCS: 93005; 93242; 99214 ==

== ENCOUNTER → 2022-02-12 11:24 | Outpatient (BNVA) | payer MEDICAID, SELFPAY | PROVIDERS: PCP Family Medicine Adult Medicine; Visit Provider Family Medicine Adult Medicine | DX: M54.30 Sciatica, unspecified side (principal); M18.11 Unilateral primary osteoarthritis of first carpometacarpal joint, right hand; F17.200 Nicotine dependence, unspecified, uncomplicated; J44.9 Chronic obstructive pulmonary disease, unspecified; K92.1 Melena; I10 Essential (primary) hypertension; E78.2 Mixed hyperlipidemia; E11.65 Type 2 diabetes mellitus with hyperglycemia; E78.5 Hyperlipidemia, unspecified | CPT/HCPCS: 80053; 83036; 85025 ==

== ENCOUNTER → 2022-03-20 10:44 | Outpatient (BNVA) | payer MEDICAID, SELFPAY | PROVIDERS: PCP Family Medicine Adult Medicine; Referring Provider Family Medicine Adult Medicine; Visit Provider Orthopaedic Surgery | DX: M48.062 Spinal stenosis, lumbar region with neurogenic claudication (principal); M54.16 Radiculopathy, lumbar region; M43.9 Deforming dorsopathy, unspecified; M25.78 Osteophyte, vertebrae; M48.07 Spinal stenosis, lumbosacral region | CPT/HCPCS: 72110; 99204 ==

== ENCOUNTER 2022-04-01 10:09 | Outpatient (CLI) | payer MEDICAID, SELFPAY ==
--- NOTE | 2022-04-01 10:00 | CT_ITS ---
WS: [id number] LDCT LUNG CANCER SCREENING TECHNIQUE: Noncontrast CT of the chest with coronal and sagittal reformatted images. CLINICAL INFORMATION: shortness of breat COMPARISON: CTA December 27, 2019 DLP: 80.49 mGy.cm DIvol: Mean CTDIvol: 1.60 (mGy) All CT scans at [facility] use at least one of these dose optimization techniques: automat ed exposure control; mA and/or kV adjustment per patient size (includes targeted exams where dose is matched to clinical indication); or iterative reconstruction. FINDINGS: Calcified granuloma RIGHT lower lobe and LEFT upper lobe.Tiny noncalcified nodule superior segment LE FT lower lobe. No suspicious pulmonary parenchymal opacities. Cholecystectomy. Normal GE junction. Mild hepatomegaly. Adrenal glands are normal. No mediastinal or hilar lymphadenopathy. Coronary calcification. Postoperative changes lower cervical spine. Chronic an terior wedging at L1. CT/CT lung screening [id number] IMPRESSION: LUNG-RADS: 2-Benign Appearance or Behavior FOLLOW UP: 12 Month: Continue annual screening with LDCT
== END 2022-04-01 10:10 | disposition home or self-care (01) ==
PROVIDERS: PCP Family Medicine Adult Medicine; Visit Provider Family Medicine Adult Medicine
DX: R06.02 Shortness of breath (principal); F17.200 Nicotine dependence, unspecified, uncomplicated
CPT/HCPCS: 71271

== ENCOUNTER → 2022-04-17 10:53 | Outpatient (BNVA) | payer MEDICAID, SELFPAY | PROVIDERS: PCP Family Medicine Adult Medicine; Visit Provider Internal Medicine | DX: E11.65 Type 2 diabetes mellitus with hyperglycemia (principal); E78.2 Mixed hyperlipidemia; Z79.4 Long term (current) use of insulin; Z79.84 Long term (current) use of oral hypoglycemic drugs | CPT/HCPCS: 99214 ==

== ENCOUNTER → 2022-05-22 10:40 | Outpatient (BNVA) | payer MEDICAID, SELFPAY | PROVIDERS: PCP Family Medicine Adult Medicine; Visit Provider Internal Medicine Pulmonary Disease | DX: J44.9 Chronic obstructive pulmonary disease, unspecified (principal); G47.33 Obstructive sleep apnea (adult) (pediatric); I10 Essential (primary) hypertension; R06.09 Other forms of dyspnea; E11.59 Type 2 diabetes mellitus with other circulatory complications; I25.10 Atherosclerotic heart disease of native coronary artery without angina pectoris; Z71.6 Tobacco abuse counseling; Z79.4 Long term (current) use of insulin; Z79.84 Long term (current) use of oral hypoglycemic drugs; F17.290 Nicotine dependence, other tobacco product, uncomplicated | CPT/HCPCS: 99204 ==

== ENCOUNTER → 2022-06-03 10:40 | Outpatient (BNVA) | payer MEDICAID, SELFPAY | PROVIDERS: PCP Family Medicine Adult Medicine; Visit Provider Family Medicine Adult Medicine | DX: E11.65 Type 2 diabetes mellitus with hyperglycemia (principal); E78.5 Hyperlipidemia, unspecified; E11.59 Type 2 diabetes mellitus with other circulatory complications; I25.10 Atherosclerotic heart disease of native coronary artery without angina pectoris | CPT/HCPCS: 80053; 80061; 83036; 84443; 85025 ==

== ENCOUNTER 2022-06-12 12:52 | Emergency (ER) | payer MEDICAID, SELFPAY ==
[2022-06-12 12:53] VITALS: BP 139/80; PULSE 79; RESP 16; TEMP 36.6; O2SAT 98
--- NOTE | 2022-06-12 13:05 | ED_ITS ---
HPI - Extremity Problem General: Chief complaint: Extremity Problem,Nontraumatic Stated complaint: left leg pain Time Seen by Provider: 06/12/22 13:05 History of Present Illness: Mr. Cornelius is a 62-year-old gentleman with history of hypertension, hyperlipidemia, diabetes, known vascular disease, history of right lower extremity DVT on Xarelto presenting to the emergency department due to left leg pain. He reports symptom onset subacutely 7 or 8 days ago without specific known provoking event or falls. He initially had pain more on the medial thigh however subsequently this is spread throughout his leg with occasional paresthesias. Symptoms are markedly worse with ambulation and exertion as well as palpation. At rest symptoms continue to be mild to moderate. No other specific changes in health, exacerbating, or alleviating factors identified. 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 Justin Sands 04/28/2011 C4-C5, C5-C6, C6-C7 ACDFF History of colonoscopy (2015) Repeat in 5 years History of esophagogastroduodenoscopy (EGD) (03/07/19) 05/31/2019: Gastric erosions 08/09 : gastritis History of lower leg fracture with surgical repair History of thumb surgery left thumb CMC LRTI Hx of colonoscopy with polypectomy Status post laparoscopic cholecystectomy Family History Father CAD (coronary artery disease) In his 50's. Mother CAD (coronary artery disease) She had heart attack in her 40's. Other Cancer Diabetes Heart disease Hyperlipidemia Hypertension Denies family history of Anesthesia complication Bleeding disorder Social History Smoking and tobacco status: current every day smoker pipe Pipes smoked per week: 50 Years smoked pipe: 40 Pipe Details: 10-50 bowls/day Quit status (tobacco): has tried quititng Number of times tried to quit tobacco: 1 Second hand smoke exposure: No Smoking risk assessment/counseling performed?: No Alcohol intake: former Year of sobriety/quit date alcohol: 2019 Desire information about alcohol rehabilitation?: No Counseling given: No Desire information about substance/drug rehabilitation?: No Counseling given: No Lives independently: Yes Marital status: Single Current occupational status: disabled Physical Exam Const: COMMON NORMALS: alert GENERAL APPEARANCE: cooperative and well developed HENMT: COMMON NORMALS: normocephalic and atraumatic HEAD & SCALP: normocephalic and atraumatic Eye: COMMON NORMALS: conjunctivae normal CONJUNCTIVA: Yes conjunctivae normal SCLERA: sclerae normal Neck/C-Spine: COMMON NORMALS: supple GENERAL: Yes trachea midline Resp: COMMON NORMALS: clear to auscultation bilaterally EFFORT & INSPECTION: Yes able to speak in complete sentences AUSCULTATION: clear to auscultation bilaterally Cardio: COMMON NORMALS: regular rate and regular rhythm RATE: regular rate RHYTHM: regular rhythm GI: COMMON NORMALS: Soft to palpation PALPATION: Yes Soft to palpation and No Tenderness to palpation present (GI) Extremity: NARRATIVE EXTREMITY EXAM: Generalized muscular tenderness palpation of the left lower extremity, motor intact, unable to palpate DP/PT, delayed cap refill however oral temperature is similar to contralateral side, subjective sensory changes. No foot wounds or cellulitis. GENERAL: Yes normal exam except as noted and No edema Neuro: COMMON NORMALS: moves all extremities SENSORIUM/ORIENTATION: Yes alert and No Orientation impaired Psych: COMMON NORMALS: mental status grossly normal and Normal thought process present THOUGHT PROCESS: Normal thought process present Course Vital Signs: Vital signs: Vital Signs Temperature 97.9 F 06/12/22 12:53 Pulse Rate 79 02/23/23 12:53 Respiratory Rate 16 06/12/22 12:53 Blood Pressure 139/80 06/12/22 12:53 Pulse Oximetry 98 06/12/22 12:53 Oxygen Delivery Me thod 06/12/22 12:53 MDM - Extremity (Nontraumatic) Medical Decision Making 62-year-old gentleman with complex past medical history including history of DVT currently on anticoagulation presenting with atraumatic left lower extremity symptoms. Patient appears to have concerning story for claudication and both combination of possible arterial and venous disease. Exam as above. Labs with no significant hematologic or metabolic abnormality compared to prior. Lactic acid is normal. Ultrasound imaging reveals at least moderate peripheral arterial disease with abnormal JOSE, there is occlusion of the popliteal and posterior tibial though dorsalis pedis is patent. Generalized monophasic Doppler waveforms. Venous study positive for acute thrombus of the left common femoral, femoral, deep femoral, popliteal, peroneal, and posterior tibial veins. Formal reads pending at time of disposition given patient's desire to leave. I discussed the results of ED evaluation with the patient. Certainly he has a concerning story with borderline rest pain at times. I recommended consideration of transfer which the patient declined. He has multiple things that he has to take care of at home and adamantly declines inpatient admission or transfer at this time. I discussed this case with vascular surgery on-call at [facility] and patient will have clinic follow-up. Given development of acute DVT despite adherence with anticoagulation I will prescribe Lovenox therapeutic dose twice daily. Patient is comfortable with self injection given history of diabetes. I discussed risks of progression/worsening of disease as well as tissue related to vascular insufficiency. Patient understands risks. Most likely etiology of symptoms is acute DVT and peripheral occlusive arterial disease. The results of ED evaluation were discussed with the patient including prescriptions and/or symptomatic cares (if applicable) including appropriate and responsible use, followup plan, and return precautions. The patient verbalized understanding and felt safe for discharge. Medical Records I reviewed the patient's medical records. Lab Data I reviewed the patient's lab results. 06/12/22 13:23 06/12/22 13:23 Laboratory Results WBC 8.1 10^3/uL (4.0-10.0) 06/12/22 13:23 RBC 4.92 10^6/uL (4.1-5.3) 06/12/22 13:23 Hgb 14.2 g/dL (11.7-16.6) 06/12/22 13:23 Hct 41.9 % (42.0-52.0) L 06/12/22 13:23 MCV 85.2 fl (80-94) 06/12/22 13:23 MCH 28.9 pg (28.0-34.0) 06/12/22 13:23 MCHC 33.9 g/dL (30.0-36.0) 06/12/22 13:23 RDW 11.6 % (12.1-15.1) L 06/12/22 13:23 Plt Count 346 10^3/cmm (130-400) 06/12/22 13:23 MPV 9.4 fL (7.4-10.4) 06/12/22 13:23 Neut % (Auto) 72.8 % 06/12/22 13:23 Lymph % (Auto) 17.3 % 06/12/22 13:23 [place] % (Auto) 6.6 % 06/12/22 13:23 Eos % (Auto) 2.1 % 06/12/22 13:23 Baso % (Auto) 0.6 % 06/12/22 13:23 Neut # (Auto) 5.86 10^3/uL (1.8-7.7) 06/12/22 13:23 Lymph # (Auto) 1.4 10^3/uL (0.8-4.8) 06/12/22 13:23 [place] # (Auto) 0.5 10^3/uL (0.2-0.9) 06/12/22 13:23 Eos # (Auto) 0.2 10^3/uL (0.0-0.8) 06/12/22 13:23 Baso # (Auto) 0.1 10^3/uL (0.0-0.1) 06/12/22 13: Nucleated RBC % (auto) 0 % 06/12/22 13: Nucleated RBCs # 0.0 /100WBC 06/12/22 13:23 Sodium 132 mmol/L (136-145) L 06/12/22 13:23 Potassium 4.6 mmol/L (3.5-5.1) 06/12/22 13:23 Chloride 95 mmol/L (98-107) L 06/12/22 13:23 Carbon Dioxide 26 mmol/L (22-29) 06/12/22 13:23 Anion Gap 15.6 (5-19) 06/12/22 13:23 BUN 7 mg/dL (8-23) L 06/12/22 13:23 Creatinine 0.7 mg/dL (0.7-1.2) 06/12/22 13:23 GFR Calculation 114.6 mL/min (90-130) 06/12/22 13:23 Glucose 346 mg/dL (65-115) H 06/12/22 13:23 Calculated Osmolality 286 mOsm/kg (285-295) 06/12/22 13:23 Lactate 1.3 mmol/L (0.5-2.2) 06/12/22 13:23 Calcium 9.3 mg/dL (8.5-10.5) 06/12/22 13:23 Total Bilirubin 0.4 mg/dL (0.15-1.2) 06/12/22 13:23 AST 10 U/L (0-40) 06/12/22 13:23 ALT 9 U/L (0-41) 06/12/22 13:23 Alkaline Phosphatase 114 U/L (40-130) 06/12/22 13:23 Total Protein 7.2 g/dL (6.6-8.7) 06/12/22 13:23 Albumin 3.9 g/dL (3.5-5.2) 06/12/22 13:23 Globulin 3.3 g/dL (1.3-4.6) 06/12/22 13:23 Discharge Plan Discharge Patient Disposition: Home Clinical Impression: Deep vein thrombosis of lower extremity, Hyperglycemia due to type 2 diabetes mellitus, PAOD (peripheral arterial occlusive disease), Claudication of left lower extremity Condition: Stable Prescriptions: New Lovenox 80 mg/0.8 mL syringe 85 mg SUBCUT Q12H 20 Days Qty: 34 2RF oxycodone 5 mg tablet 5 mg PO Q4H PRN (Reason: pain) Qty: 20 0RF Discontinued Xarelto 20 mg tablet See Rx Instructions .ROUTE .COMPLEX Qty: 90 1RF Dose Instruction: TAKE 1 TABLET BY MOUTH EVERY DAY WITH THE EVENING MEAL Rx Instructions: TAKE 1 TABLET BY MOUTH EVERY DAY WITH THE EVENING MEAL No Action (DME) DIABETIC SHOES Qty: 1 0RF Rx Instructions: SEND TO [facility] tramadol [Ultram] 50 mg tablet 100 mg PO BID PRN (Reason: pain) Qty: 120 2RF Rx Instructions: Refill 120 tabs on or after 30-day interval pantoprazole [Protonix] 40 mg tablet,delayed release (DR/EC) 40 mg PO BID 30 Days Qty: 60 5RF ipratropium-albuterol 0.5 mg-3 mg(2.5 mg base)/3 mL solution for nebulization 3 ml inhalation Q4H PRN (Reason: wheezing) Qty: 90 3RF insulin aspart U-100 [Novolog FlexPen U-100 Insulin] 100 unit/mL (3 mL) insulin pen 10 unit SUBCUT TID 30 Days Qty: 12 2RF Rx Instructions: 10 units three times daily with meals (DME) Dexcom G6 Sensor Device See Rx Instructions .ROUTE .MEDSUPPLY Qty: 9 2RF Rx Instructions: change every 10 days (DME) Dexcom G6 Grappler Misc See Rx Instructions .ROUTE .MEDSUPPLY Qty: 1 2RF Rx Instructions: Change once every year (DME) Dexcom G6 Transmitter Device See Rx Instructions .ROUTE .MEDSUPPLY Qty: 2 2RF Rx Instructions: change every 90 days (DME) CMC brace See Rx Instructions .Route .MEDSUPPLY Qty: 1 0RF Rx Instructions: As directed montelukast [Singulair] 10 mg tablet 10 mg PO DAILY Qty: 90 1RF glyburide 5 mg tablet 5 mg PO BID Qty: 60 5RF doxepin 50 mg capsule 50 mg PO .HS Qty: 30 2RF paroxetine HCl 30 mg tablet 60 mg PO QDAY Qty: 60 2RF buspirone 5 mg tablet 5 mg PO TID Qty: 90 2RF peg 3350-electrolytes [Golytely] 236-22.74-6.74 -5.86 gram recon soln 240 ml PO Q10M Qty: 4000 0RF Rx Instructions: until fecal effluent is clear (DME) CPAP MASK AND TUBING Qty: 1 0RF Rx Instructions: SEND TO Home baclofen 10 mg tablet See Rx Instructions .ROUTE .COMPLEX Qty: 180 2RF Dose Instruction: TAKE 1 TABLET BY MOUTH TWICE DAILY Rx Instructions: TAKE 1 TABLET BY MOUTH TWICE DAILY metformin 1,000 mg tablet See Rx Instructions .ROUTE .COMPLEX Qty: 180 3RF Dose Instruction: TAKE 1 TABLET BY MOUTH TWICE DAILY Rx Instructions: TAKE 1 TABLET BY MOUTH TWICE DAILY (DME) Increase CPAP settings tto 14-18 cm setting. See Rx Instructions .Route .MEDSUPPLY Qty: 1 0RF Rx Instructions: As directed, change setting from 10 to 14cm to 14 to 18 cm for his pressure on his CPAP machine. (DME) pen needle, diabetic [TechLITE Pen Needle] 31 gauge x 1/4 needle See Rx Instructions .Route Qty: 200 3RF Rx Instructions: Use to administer shots twice daily niacin 500 mg tablet extended release 24 hr See Rx Instructions .ROUTE .COMPLEX Qty: 90 2RF Dose Instruction: TAKE 1 TABLET(500 MG) BY MOUTH DAILY Rx Instructions: TAKE 1 TABLET(500 MG) BY MOUTH DAILY carvedilol [Coreg] 6.25 mg tablet 6.25 mg PO BID Qty: 60 6RF Rx Instructions: must administer with a meal/food Lantus Solostar U-100 Insulin 100 unit/mL (3 mL) insulin pen See Rx Instructions .ROUTE .COMPLEX Qty: 45 3RF Dose Instruction: ADMINISTER 50 UNITS UNDER THE SKIN DAILY Rx Instructions: ADMINISTER 50 UNITS UNDER THE SKIN DAILY potassium chloride 20 mEq tablet extended release See Rx Instructions .ROUTE .COMPLEX Qty: 30 11RF Dose Instruction: TAKE 1 TABLET BY MOUTH DAILY Rx Instructions: TAKE 1 TABLET BY MOUTH DAILY meloxicam 15 mg tablet See Rx Instructions .ROUTE .COMPLEX Qty: 30 5RF Dose Instruction: TAKE 1 TABLET BY MOUTH EVERY DAY Rx Instructions: TAKE 1 TABLET BY MOUTH EVERY DAY losartan 50 mg tablet See Rx Instructions .ROUTE .COMPLEX Qty: 180 1RF Dose Instruction: TAKE 1 TABLET BY MOUTH TWICE DAILY Rx Instructions: TAKE 1 TABLET BY MOUTH TWICE DAILY clonidine HCl 0.2 mg tablet See Rx Instructions .ROUTE .COMPLEX Qty: 60 5RF Dose Instruction: TAKE 1 TABLET BY MOUTH TWICE DAILY Rx Instructions: TAKE 1 TABLET BY MOUTH TWICE DAILY Spiriva with HandiHaler 18 mcg capsule, w/inhalation device See Rx Instructions .ROUTE .COMPLEX Qty: 90 1RF Dose Instruction: INHALE THE CONTENTS OF 1 CAPSULE VIA INHALATION DEVICE EVERY DAY Rx Instructions: INHALE THE CONTENTS OF 1 CAPSULE VIA INHALATION DEVICE EVERY DAY rosuvastatin 40 mg tablet 40 mg PO DAILY Qty: 90 2RF Jardiance 25 mg tablet See Rx Instructions .ROUTE .COMPLEX Qty: 30 5RF Dose Instruction: TAKE 1 TABLET BY MOUTH EVERY MORNING FOR GLUCOSE CONTROL Rx Instructions: TAKE 1 TABLET BY MOUTH EVERY MORNING FOR GLUCOSE CONTROL (DME) lancets [OneTouch Delica Plus Lancet] 33 gauge misc See Rx Instructions .ROUTE .COMPLEX Qty: 300 3RF Dose Instruction: USE TO TEST BLOOD SUGAR THREE TIMES DAILY Rx Instructions: USE TO TEST BLOOD SUGAR THREE TIMES DAILY ipratropium bromide 17 mcg/actuation HFA aerosol inhaler 2 puff inhalation QID Qty: 12.9 1RF albuterol sulfate [Ventolin HFA] 90 mcg/actuation HFA aerosol inhaler 2 puff inhalation Q6H PRN (Reason: shortness of breath or wheezing) Qty: 17 3RF nitroglycerin 0.4 mg tablet, sublingual See Rx Instructions .ROUTE .COMPLEX Qty: 25 5RF Dose Instruction: DISSOLVE ONE TABLET UNDER THE TONGUE EVERY 5 MINUTES NEEDED FOR CHEST PAIN Rx Instructions: DISSOLVE ONE TABLET UNDER THE TONGUE EVERY 5 MINUTES NEEDED FOR CHEST PAIN Victoza 2-Zack 0.6 mg/0.1 mL (18 mg/3 mL) pen injector 1.8 mg SUBCUT DAILY 90 Days Qty: 27 2RF (DME) mobile scooter See Rx Instructions .Route .MEDSUPPLY Qty: 1 0RF Rx Instructions: Home equipment to provide a scooter and use as directed (DME) OneTouch Ultra Test Strip See Rx Instructions .ROUTE .COMPLEX Qty: 300 1RF Dose Instruction: CHECK BLOOD SUGAR THREE TIMES DAILY Rx Instructions: CHECK BLOOD SUGAR THREE TIMES DAILY fluticasone propion-salmeterol [Advair Diskus] 500-50 mcg/dose blister with device See Rx Instructions .ROUTE .COMPLEX Qty: 60 0RF Dose Instruction: INHALE 1 PUFF BY MOUTH TWICE DAILY Rx Instructions: INHALE 1 PUFF BY MOUTH TWICE DAILY amlodipine 10 mg tablet See Rx Instructions .ROUTE .COMPLEX Qty: 90 0RF Dose Instruction: TAKE 1 TABLET BY MOUTH DAILY Rx Instructions: TAKE 1 TABLET BY MOUTH DAILY furosemide 40 mg tablet 40 mg PO DAILY Qty: 90 1RF latanoprost 0.005 % drops 1 drp ophthalmic (eye) BEDTIME Discharge Orders: Discharge ED (Routine); Ordered 06/12/22 Ordered By: Fransico Corona Referrals: Panfilo Garza MD [Primary Care Provider] - Discharge Diet: Usual diet Discharge Activity: Increase activity as tolerated Patient Instructions: Enoxaparin (By injection), Deep Vein Thrombosis (ED), Peripheral Vascular Disease (ED), Opioid Safety Activity Restrictions/Additional Instructions: Thank you for visiting the emergency department. You were seen and evaluated for leg pain. The most likely cause of your leg pain it is multifactorial including peripheral arterial disease and DVT despite Xarelto. I am quite concerned that you have severe peripheral arterial disease however you are declining inpatient management/transfer at this time. I will change her Xarelto to injectable medication and message case management for follow-up. Please follow-up with vascular surgery at [facility]. They should contact you. If you do not hear from them in the next 2 days please call. Return to the emergency department for uncontrolled pain, any color changes, wounds, fevers, uncontrolled symptoms, difficulty moving, numbness, tingling, or anything else that you are concerned about and feels needs emergency department evaluation. 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
--- NOTE | 2022-06-12 13:10 | USCV_ITS ---
Humble Cornelius Age: 62 Gender: M : 1960 Exam Date: 06/12/2022 13:26 Ordering Phys: Fransico Corona MD Technologist: Eleazar Mathews Exam Location: [facility] – [place] Indication: lt leg pain and swelling PROCEDURES: Venous duplex imaging was performed in only the left lower extremity. The following venous structures were evaluated: common femoral vein, profunda vein, proximal portion of the greater saphenous vein, superficial femoral vein, and the popliteal vein. In addition, the posterior tibial and peroneal trunk were evaluated. On the left side, the common femoral, superficial femoral, profunda femoral, popliteal, posterior tibial, greater saphenous veins, and the peroneal trunk were identified and interrogated in the standard fashion. . FINDINGS: The leg lt has occluding thrombus from the lt cfv, sfv, profunda, pop, perineal trunk and post tib. CONCLUSIONS Occlusive Acute thrombus LEFT common femoral, femoral, deep femoral, popliteal, perineal and posterior tibial veins. Prelim given to Dr. Corona at time of study by Corral Boss d/w Dr. Corona 06/13/22 Hunter Troncoso MD (Electronically Signed) Final Date: 13 June 2022 13:10 S
--- NOTE | 2022-06-12 13:10 | USCV_ITS ---
AdryanHumble sabillon Age: 62 Gender: M : 1960 Exam Date: 06/12/2022 13:32 Ordering Phys: Fransico Corona MD Technologist: Eleazar Mathews [place] [facility] [place]ication: lt foot pain Risk Factors: Previous Vascular Surgery: RIGHT LEFT BP: 140.0 / 78.00 BP: 140.0/ 75.00 0 0 Waveform Velocity (cm/s) Velocity (cm/s) Waveform Iliac Prox 72.2 Monophasic Iliac Mid 66.0 Monophasic Iliac Distal 72.2 Monophasic DIRECTOR ONCOLOGY Monophasic 58.8 SFA Prox 60.6 Monophasic SFA Mid 58.3 Monophasic SFA Dist 48.9 Monophasic POP N/A SEWING MACHINIST N/A DPA 22.5 Monophasic JOSE 0.6 FINDINGS Monophasic Doppler waveforms throughout the left lower extremity. No Doppler signals in the popliteal posttibial artery. Resting JOSE of 0.6 CONCLUSIONS 1. Abnormal resting JOSE on the left side, suggesting moderate peripheral artery disease. 2. 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
[2022-06-12 13:53] LABS: Basophils # 0.1 10^3/uL (0.0-0.1); Basophils % 0.6 %; Eosinophils # 0.2 10^3/uL (0.0-0.8); Eosinophils % 2.1 %; Hematocrit 41.9 % (42.0-52.0); Hemoglobin 14.2 g/dL (11.7-16.6); Lymphocytes # 1.4 10^3/uL (0.8-4.8); Lymphocytes % 17.3 %; Mean Corpuscular HGB Conc 33.9 g/dL (30.0-36.0); Mean Corpuscular Hemoglobin 28.9 pg (28.0-34.0); Mean Corpuscular Volume 85.2 fl (80-94); Mean Platelet Volume 9.4 fL (7.4-10.4); Monocytes # 0.5 10^3/uL (0.2-0.9); Monocytes % 6.6 %; Neutrophils # 5.86 10^3/uL (1.8-7.7); Neutrophils % 72.8 %; Nucleated Red Blood Cells % 0 %; Platelet Count 346 10^3/cmm (130-400); Red Blood Count 4.92 10^6/uL (4.1-5.3); Red Cell Distribution Width 11.6 % (12.1-15.1); White Blood Count 8.1 10^3/uL (4.0-10.0)
[2022-06-12 14:19] LABS: Alanine Aminotransferase 9 U/L (0-41); Albumin Level 3.9 g/dL (3.5-5.2); Alkaline Phosphatase 114 U/L (40-130); Anion Gap 15.6 (5-19); Aspartate Amino Transferase 10 U/L (0-40); Blood Urea Nitrogen 7 mg/dL (8-23); Calcium 9.3 mg/dL (8.5-10.5); Carbon Dioxide 26 mmol/L (22-29); Chloride 95 mmol/L (98-107); Globulin 3.3 g/dL (1.3-4.6); Glomerular Filtration Rate 114.6 mL/min (90-130); Glucose 346 mg/dL (65-115); Osmolality Calculated 286 mOsm/kg (285-295); Potassium 4.6 mmol/L (3.5-5.1); Sodium 132 mmol/L (136-145); Total Bilirubin 0.4 mg/dL (0.15-1.2); Total Protein 7.2 g/dL (6.6-8.7)
[2022-06-12 14:20] LABS: Lactate (Lactic Acid level) 1.3 mmol/L (0.5-2.2)
== END 2022-06-12 16:24 | disposition home or self-care (01) ==
PROVIDERS: Emergency Provider Emergency Medicine; PCP Family Medicine Adult Medicine
DX: I82.412 Acute embolism and thrombosis of left femoral vein (principal); I82.432 Acute embolism and thrombosis of left popliteal vein; I82.452 Acute embolism and thrombosis of left peroneal vein; I82.442 Acute embolism and thrombosis of left tibial vein; E11.65 Type 2 diabetes mellitus with hyperglycemia; I77.9 Disorder of arteries and arterioles, unspecified; I87.8 Other specified disorders of veins; Z79.4 Long term (current) use of insulin; F17.210 Nicotine dependence, cigarettes, uncomplicated; J44.9 Chronic obstructive pulmonary disease, unspecified; I25.10 Atherosclerotic heart disease of native coronary artery without angina pectoris; I10 Essential (primary) hypertension; E78.5 Hyperlipidemia, unspecified
CPT/HCPCS: 36415; 80053; 83605; 85025; 93926; 93971; 99284

== ENCOUNTER → 2022-06-19 11:09 | Outpatient (BNVA) | payer MEDICAID, SELFPAY | PROVIDERS: PCP Family Medicine Adult Medicine; Visit Provider Internal Medicine | DX: E11.65 Type 2 diabetes mellitus with hyperglycemia (principal); E78.2 Mixed hyperlipidemia; E78.5 Hyperlipidemia, unspecified; Z79.4 Long term (current) use of insulin; Z79.84 Long term (current) use of oral hypoglycemic drugs | CPT/HCPCS: 99214 ==

== ENCOUNTER 2022-06-26 10:41 | Outpatient (CLI) | payer MEDICAID, SELFPAY ==
--- NOTE | 2022-06-26 11:00 | MR_ITS ---
WS: [id number] MRI LUMBAR SPINE NONCONTRAST HISTORY: low back pain COMPARISON: 06/18/2012 TECHNIQUE: Sagittal and axial multisequence imaging is submitted. Chronic anterior wedging of L1 by 30%. Fracture was described on 06/18/2012 without progression. Very s light retropulsion of posterior superior endplate. There is mild encroachment upon the ventral thecal sac and deformity of the cord. Disc and vertebral body encroachment greatest along the RIGHT lateral thecal sac with only mild RIGHT subarticular recess encroachment. Similar to the prior study. Mild R IGHT subarticular recess encroachment. Normal lumbar alignment with no compression fractures or marrow edema. Disc spaces and vertebral body heights are well-preserved. Conus terminates normally at L1-2 disc level. L1-L2: Mild annular disc bulging and ligamentum flavum hypertrophy. No stenosis. L2-L3: Mild annular disc bulge with no stenosis. L3-L4: Mild facet arthritis. No stenosis. L4-L5: Mild facet and ligamentum flavum hypertrophy. No disc protrusion or stenosis. L5-S1: Mild annular disc bulge with a tiny central disc protrusion. Mild foraminal stenosis. Mild lig amentum flavum hypertrophy. Paravertebral soft tissues are negative. MR/MR lumbar spine wo con* [id number] IMPRESSION: 1. No significant progression of stenosis since the prior study. 2. Moderate RIGHT subarticular recess encroachment at T12-L1 due to disc and o steophyte disease. 3. Chronic anterior wedging of L1 is stable. 4. Mild foraminal stenosis at L5-S1 is unchanged.
== END 2022-06-26 10:42 | disposition home or self-care (01) ==
LOC: RAD 10:46
PROVIDERS: PCP Family Medicine Adult Medicine; Visit Provider Orthopaedic Surgery
DX: M25.78 Osteophyte, vertebrae (principal); M48.56XA Collapsed vertebra, not elsewhere classified, lumbar region, initial encounter for fracture; M48.07 Spinal stenosis, lumbosacral region; M51.26 Other intervertebral disc displacement, lumbar region; M47.816 Spondylosis without myelopathy or radiculopathy, lumbar region
CPT/HCPCS: 72148

== ENCOUNTER 2022-07-17 09:57 | Outpatient (CLI) | payer MEDICAID, SELFPAY ==
--- NOTE | 2022-07-17 09:45 | USCV_ITS ---
Humble Cornelius Age: 62 Gender: M : 1960 Exam Date: 07/17/2022 10:33 Ordering Phys: Panfilo Garza MD Technologist: JUAN [place] [facility] [place]: Chronic DVT in bilateral LE HISTORY: History of deep venous thrombosis. PROCEDURES: Venous duplex imaging was performed in bilateral lower extremities. The following venous structures were evaluated: common femoral vein, profunda vein, proximal portion of the greater saphenous vein, superficial femoral vein, and the popliteal vein. In addition, the posterior tibial and peroneal trunk were evaluated. Serial compression, augmentation maneuvers, and spectral Doppler flow evaluation were performed. FINDINGS: Thrombus noted in RT Mid-Dist FV Thrombus noted starting in LT CFV, extending down to the LT Peroneal. Lt PTV appear compressible and free of thrombus at this time CONCLUSIONS Chronic DVT RIGHT mid to distal femoral vein similiar to 01/09 DVT LEFT common femoral, femoral, popliteal and left peroneal improved but persistent compared to 06/12 Hunter Troncoso MD (Electronically Signed) Final Date: 17 July 2022 16:33 S
== END 2022-07-17 09:58 | disposition home or self-care (01) ==
LOC: RAD 10:01
PROVIDERS: PCP Family Medicine Adult Medicine; Visit Provider Family Medicine Adult Medicine
DX: I82.511 Chronic embolism and thrombosis of right femoral vein
CPT/HCPCS: 93970

== ENCOUNTER → 2022-07-24 10:54 | Outpatient (BNVA) | payer MEDICAID, SELFPAY | PROVIDERS: PCP Family Medicine Adult Medicine; Visit Provider Physician Assistant | DX: M48.062 Spinal stenosis, lumbar region with neurogenic claudication (principal) | CPT/HCPCS: 99213 ==

== ENCOUNTER → 2022-07-28 11:03 | Outpatient (BNVA) | payer MEDICAID, SELFPAY | PROVIDERS: PCP Family Medicine Adult Medicine; Visit Provider Internal Medicine | DX: E11.65 Type 2 diabetes mellitus with hyperglycemia (principal); R00.2 Palpitations; E78.2 Mixed hyperlipidemia; Z79.4 Long term (current) use of insulin; Z79.84 Long term (current) use of oral hypoglycemic drugs | CPT/HCPCS: 99214 ==

== ENCOUNTER 2022-08-05 10:42 | Outpatient (CLI) | payer MEDICAID, SELFPAY ==
[2022-08-05 11:26] VITALS: BMI 30.7
--- NOTE | 2022-08-05 11:29 | ECG_ITS ---
[facility] Test Date: 2022-08-05 Pat Name: Humble Cornelius Department: Room: Gender: Male Inspector Quality Assurance: : 1960 Requested By: José Miguel Jonesr Ashlyn Order Number: [id number] Malika MD: Kehinde Gutierrez M.D. Interpretive Statements NAME OF STUDY: LEXISCAN SESTAMIBI STRESS TEST INDICATION: [Dyspnea, ] Procedure: At the baseline, the blood pressure was 137/99 mmHg with a heart rate of 60 bpm. The electrocardiogram showed normal sinus rhythm, normal axis with normal ST and T's. The Lexiscan was infused over a period of 20 seconds. A total of 0.4 mg of Lexiscan was infused. The stress phase was continued for a total of 5 minutes. Heart rate was at the end of stress phase was 75 bpm and a blood pressure of 129/73 mmHg. The EKG at the peak infusion revealed normal sinus rhythm with no significant ST-T wave changes. Sestamibi was injected 20 seconds after the Lexiscan infusion. Blood pressure at the end of recovery phase was 142/71 mmHg with a heart rate of 64 bpm. Conclusion: 1. Normal EKG response to Lexiscan infusion 2. No Lexiscan induced chest pain or cardiac arrhythmia. 3. Normal blood pressure and heart rate response. 4. Sestamibi/sestamibi perfusion scan pending; see separate report. Electronically Signed On 08-25-2022 10:21:09 CDT by Kehinde Gutierrez M.D. [id number]
--- NOTE | 2022-08-05 11:29 | NMCV_ITS ---
NM dorene perf SPECT r/s* [id number] AdryanHumble multani Age: 62 Gender: M : 1960 Exam Date: 08/05/2022 11:54 Ordering Phys: José Miguel Carr MD Technologist: ADRIEL Bryant Exam Location: [facility] Indications: SHORTNESS OF BREATH, HYPERTENSION, PALPITATIONS, NICOTINE DEPENDENCE STRESS TEST Please see separate stress test report in [facility] for full findings IMAGE PROTOCOL Rest/Stress 1 Lexiscan Day Radiopharmaceutical Dose (mCi) Administration Site Administered by Rest: Tc-99m 10.8 IV ADRIEL Montgomery Sestamibi Stress:Tc-99m 32.7 IV ADRIEL Bryant Sestamiramon Rest: 05-Aug-2022 60 Discovery 630 Stress: 05-Aug-2022 30 Discovery 630 0.4mg Lexiscan. Supine position only as patient was unable to lay prone. SPECT RESULTS Technical Quality: Excellent Raw Data Analysis: Normal Image Corrections: No attenuation or motion correction applied Summed Stress Score: 0 Summed Rest Score: 3 Summed Difference Score: 0 PERFUSION FINDINGS SPECT images demonstrate homogeneous tracer distribution throughout the myocardium. FUNCTIONAL RESULTS (calculated via Gated SPECT) Stress Image LV EF (%): 67 Stress EDV (mL):110 TID: 1.06 Stress ESV (mL):36 FUNCTIONAL FINDINGS: There is normal left ventricular systolic function. IMPRESSIONS 1. Normal myocardial perfusion imaging with no evidence of ischemia 2. LV systolic function is normal Kehinde Gutierrez MD (Electronically Signed) Final Date: 06 August 2022 11:54 S
[2022-08-05] MEDS: regadenoson 0.4 Mg/5 ml Syringe IVP (12:30)
[2022-08-05] MEDS: ondansetron 2 mg/ML SDV 2 mL 4 MG IVP (12:41)
[2022-08-05 12:46] VITALS: BP 142/71; PULSE 64
== END 2022-08-05 10:43 | disposition home or self-care (01) ==
LOC: CDL 10:43
PROVIDERS: PCP Family Medicine Adult Medicine; Visit Provider Internal Medicine Pulmonary Disease
DX: R06.00 Dyspnea, unspecified (principal)
CPT/HCPCS: 36415; 78452; 93017; 96374; 96375; A9500; J2405; J2785

== ENCOUNTER 2022-08-07 09:50 | Outpatient (CLI) | payer MEDICAID, SELFPAY ==
[2022-08-07 10:20] VITALS: BP 138/99; BP 141/88
== END 2022-08-07 09:51 | disposition home or self-care (01) ==
PROVIDERS: PCP Family Medicine Adult Medicine; Visit Provider Internal Medicine Pulmonary Disease
DX: J44.9 Chronic obstructive pulmonary disease, unspecified (principal); F17.200 Nicotine dependence, unspecified, uncomplicated
CPT/HCPCS: 94010; 94618; 94729

== ENCOUNTER → 2022-08-12 10:54 | Outpatient (BNVA) | payer MEDICAID, SELFPAY | PROVIDERS: PCP Family Medicine Adult Medicine; Visit Provider Surgery | DX: K92.1 Melena (principal); K21.9 Gastro-esophageal reflux disease without esophagitis; I73.9 Peripheral vascular disease, unspecified | CPT/HCPCS: 99213 ==

== ENCOUNTER → 2022-08-27 10:41 | Outpatient (BNVA) | payer MEDICAID, SELFPAY | PROVIDERS: PCP Family Medicine Adult Medicine; Referring Provider Physician Assistant; Visit Provider Anesthesiology Pain Medicine | DX: M48.062 Spinal stenosis, lumbar region with neurogenic claudication (principal); M79.605 Pain in left leg; M79.604 Pain in right leg; F17.210 Nicotine dependence, cigarettes, uncomplicated | CPT/HCPCS: 99205 ==

== ENCOUNTER → 2022-08-28 10:48 | Outpatient (BNVA) | payer MEDICAID, SELFPAY | PROVIDERS: PCP Family Medicine Adult Medicine; Visit Provider Internal Medicine | DX: E11.65 Type 2 diabetes mellitus with hyperglycemia (principal); E78.5 Hyperlipidemia, unspecified; R00.2 Palpitations; Z79.891 Long term (current) use of opiate analgesic | CPT/HCPCS: 80053; 80061; 80307; 82043; 83036; 84439; 84443; 84480 ==

== ENCOUNTER 2022-09-04 08:02 | Day surgery (SDC) | payer MEDICAID, SELFPAY ==
[2022-09-02 13:17] VITALS: BMI 30.7
[2022-09-04 08:22] VITALS: BP 143/83; PULSE 68; RESP 18; TEMP 36.1; O2SAT 98
[2022-09-04] MEDS: sodium chloride 0.9% 1,000 ML 30 ML IV (08:22)
[2022-09-04 08:34] LABS: Glucose Point of Care 339 mg/dL (70-110)
[2022-09-04] MEDS: insulin regular-human 10 UNIT in SYRINGE 1 EACH IVP (08:49)
--- NOTE | 2022-09-04 09:30 | P.ANESASSM_ITS ---
Pre-Anesthetic Assessment Height/Weight: Height 1.68 m Weight 86.183 kg Temp Pulse Resp BP Pulse Ox O2 Del Method 97.0 F L 68 18 143/83 98 Room Air 09/04/22 08:22 09/04/22 08:22 09/04/22 08:22 09/04/22 08:22 09/04/22 08:22 09/04/22 08:22 Preop Diagnosis: GERD Operation Date: 09/04/22 09:30 Proposed Procedures p [id number] EGD(Not Applicable) - Romain Brownlee DO Familial anesthetic complications: none Was Beta Mike taken within 24 hours: Yes Last intake: Intake Last Liquid Date 09/03/22 Last Solid Date 09/02/22 Social Alcohol (quit 2018) and Tobacco (pipe) Exam alert, oriented x 3, clear to auscultation bilaterally and regular rate & rhythm Airway Submandibular: within normal limits Cervical ROM: Other (limited) Mallampati: Class II Dentition: chipped Pulmonary Chronic Obstructive Pulmonary Disease and Sleep Apnea (CPAP) nodules on lungs. CV/HEM Stable Angina, Coronary Artery Disease, Deep Vein Thrombosis (bilateral DVT in LE monitoring every 6 mo. anticoagulated.) and Hypertension Scheduled to see Dr. Ascencio September 23 (consultation stent vs bypass) scheduled for a perfusion study of LE. Stress Test 08/10. None reported Hepatic None reported GI Gastroesophageal Reflux Disease Metabolic Diabetes Mellitus diagnosed 4 years ago. A1C 11.2 patient reports blood sugar runs 300-400 uses dexicom blood sugar at 200 currently. Musc/skel Weakness (cane use.) Neuropsych Anxiety and Depression Anesthetic Plan ASA status: 4 Anesthesia: MAC Medications/Allergies Home Medications Medication Instructions Recorded Confirmed Last Taken Type latanoprost 0.005 % eye drops 1 drp ophthalmic (eye) BEDTIME 07/22/21 09/02/22 09/03/22 History peg 3350-electrolytes 236 240 ml PO Q10M #4,000 mL 08/20/21 08/28/22 Unknown Rx gram-22.74 gram-6.74 gram-5.86 gram solution (Golytely) DIABETIC SHOES #1 ea 09/05/21 08/28/22 Unknown Rx CPAP MASK AND TUBING #1 ea 09/17/21 08/28/22 Unknown Rx Increase CPAP settings tto 14-18 #1 ea 10/02/21 08/28/22 Unknown Rx cm setting. CMC brace #1 ea 10/09/21 08/28/22 Unknown Rx rosuvastatin 40 mg tablet 40 mg PO DAILY Cholesterol med #90 03/11/22 09/02/22 09/03/22 Rx tabs empagliflozin 25 mg tablet See Rx Instructions .Route 04/08/22 09/02/22 09/03/22 Rx (Jardiance) .COMPLEX #30 tabs lancets 33 gauge (AbloomyTouch Delica #300 ea 04/23/22 08/28/22 Unknown Rx Plus Lancet) albuterol sulfate 90 mcg/actuation 2 puff inhalation Q6H PRN 05/02/22 09/02/22 09/02/22 Rx aerosol inhaler (Ventolin HFA) shortness of breath or wheezing #17 grams nitroglycerin 0.4 mg sublingual See Rx Instructions .Route 05/23/22 09/04/22 Unknown Rx tablet .COMPLEX #25 tabs liraglutide 0.6 mg/0.1 mL (18 mg/3 1.8 mg (0.3 mL) SUBCUT DAILY 90 06/02/22 09/02/22 09/03/22 Rx mL) subcutaneous pen injector days #27 mL (Victoza 2-Zack) mobile scooter #1 ea 06/04/22 08/28/22 Unknown Rx blood sugar diagnostic ([employer] #300 strips 06/13/22 08/28/22 Unknown Rx Ultra Test strips) blood-glucose meter,continuous #1 ea 06/19/22 08/28/22 Unknown Rx (Dexcom G6 Professor Of Communication) blood-glucose sensor (Dexcom G6 #9 ea 06/19/22 08/28/22 Unknown Rx Sensor device) blood-glucose transmitter (Dexcom #2 ea 06/19/22 08/28/22 Unknown Rx G6 Transmitter device) furosemide 40 mg tablet 40 mg PO DAILY #90 tabs 06/19/22 09/02/22 09/03/22 Rx insulin aspart U-100 100 unit/mL 10 unit (0.1 mL) SUBCUT TID 30 06/19/22 09/02/22 09/03/22 Rx (3 mL) subcutaneous pen (Novolog days #12 mL FlexPen U-100 Insulin aspart) ipratropium bromide 17 See Rx Instructions .Route 06/22/22 09/02/2209/03/23 Rx mcg/actuation HFA aerosol inhaler .COMPLEX #12.9 grams (Atrovent HFA) glyburide 5 mg tablet 5 mg PO BID blood glucose #60 tabs 06/24/22 09/02/22 09/03/22 Rx montelukast 10 mg tablet 10 mg PO DAILY breathing #90 tabs 06/24/22 09/02/22 09/03/22 Rx (Singulair) pantoprazole 40 mg tablet,delayed 40 mg PO BID 1 month #60 tabs 07/02/22 09/02/22 09/03/22 Rx release (Protonix) rivaroxaban 20 mg tablet (Xarelto) 20 mg PO DAILY For DVT's 90 days 07/18/22 09/02/22 09/01/22 Rx #90 tabs tramadol 50 mg tablet 100 mg PO BID PRN pain #120 tabs 07/18/22 09/02/22 09/03/22 Rx carvedilol 6.25 mg tablet (Coreg) 6.25 mg PO BID #180 tabs 07/21/22 09/02/22 09/04/22 Rx pen needle, diabetic 32 gauge x #200 ea 07/24/22 08/28/22 Unknown Rx 1/ (TechLITE Pen Needle) buspirone 5 mg tablet 5 mg PO TID #90 tabs 07/29/22 09/02/22 09/03/22 Rx doxepin 50 mg capsule 50 mg PO .HS #30 caps 07/29/22 09/02/22 09/03/22 Rx paroxetine HCl 30 mg tablet 60 mg PO QDAY #60 tabs 07/29/22 09/02/22 09/03/22 Rx insulin glargine 100 unit/mL (3 80 unit (0.8 mL) SUBCUT DAILY 60 08/04/22 09/02/22 09/03/22 Rx mL) subcutaneous pen (Lantus days #48 mL Solostar U-100 Insulin) sucralfate 100 mg/mL oral 10 ml PO BID 4 weeks #560 mL 08/12/22 09/02/22 09/03/22 Rx suspension (Carafate) ipratropium 0.5 mg-albuterol 3 mg 3 ml inhalation Q4H PRN wheezing 08/19/22 09/02/22 09/03/22 Rx (2.5 mg base)/3 mL nebulization #90 mL soln amlodipine 10 mg tablet 10 mg PO DAILY 09/02/22 09/02/22 09/04/22 History baclofen 10 mg tablet 10 mg PO DAILY 09/02/22 09/02/22 09/03/22 History clonidine HCl 0.2 mg tablet 0.2 mg PO BID 09/02/22 09/02/22 09/03/22 History fluticasone 500 mcg-salmeterol 50 1 inh inhalation BID 09/02/22 09/02/22 09/03/22 History mcg/dose blistr powdr for inhalation (Advair Diskus) losartan 50 mg tablet 50 mg PO BID 09/02/22 09/02/22 09/03/22 History meloxicam 15 mg tablet 15 mg PO DAILY 09/02/22 09/02/22 09/03/22 History metformin 1,000 mg tablet 1,000 mg PO BID 09/02/22 09/02/22 09/03/22 History niacin 500 mg tablet,extended 500 mg PO DAILY 09/02/22 09/02/22 09/03/22 History release 24 hr tiotropium bromide 18 mcg capsule 1 mcg inhalation DAILY 09/02/22 09/02/22 09/03/22 History with inhalation device (Spiriva with HandiHaler) Allergies Allergy/AdvReac Type Severity Reaction Status Date / Time No Known Allergies Allergy Verified 09/04/22 08:19 Current Medications Generic Name Dose Route Start Last Admin Trade Name Freq PRN Reason Stop Dose Admin Sodium Chloride 1,000 mls @ 30 mls/hr 09/04/22 08:15 09/04/22 08:22 Sodium Chloride 0.9% IV 09/05/22 08:14 30 mls/hr .Q24H EVA Administration PFSH Anesthesia Medical History (Updated 09/04/22 @ 08:10 by Panfilo Garza MD) Arthritis of carpometacarpal (CMC) joint of right thumb COPD (chronic obstructive pulmonary disease) Coronary artery disease due to type 2 diabetes mellitus DVT of leg (deep venous thrombosis) Glaucoma (increased eye pressure) HTN, goal below 130/80 Hyperlipidemia Intermittent palpitations Lumbar back pain with radiculopathy affecting left lower extremity Obstructive sleep apnea Psychiatric care Pulmonary embolism Smoker Started around 1974 with cigars, 100+ pack/yr history Social anxiety disorder Uncontrolled type 2 diabetes mellitus Surgical History (Updated 09/04/22 @ 08:10 by Panfilo Garza MD) H/O circumcision H/O neck surgery Neck Disc Surgery; Dr. Justin Sands 04/28/2011 C4-C5, C5-C6, C6-C7 ACDFF History of colonoscopy (2015) Repeat in 5 years History of esophagogastroduodenoscopy (EGD) (03/07/19) 05/31/2019: Gastric erosions 08/09 : gastritis History of lower leg fracture with surgical repair History of thumb surgery left thumb CMC LRTI Hx of colonoscopy with polypectomy Status post laparoscopic cholecystectomy Family History Father CAD (coronary artery disease) In his 50's. Mother CAD (coronary artery disease) She had heart attack in her 40's. Other Cancer Diabetes Heart disease Hyperlipidemia Hypertension Denies family history of Anesthesia complication Bleeding disorder Social History Smoking and tobacco status: current every day smoker pipe Pipes smoked per week: 50 Years smoked pipe: 40 Pipe Details: 10-50 bowls/day Quit status (tobacco): has tried quititng Number of times tried to quit tobacco: 1 Second hand smoke exposure: No Smoking risk assessment/counseling performed?: No Alcohol intake: former Year of sobriety/quit date alcohol: 2019 Desire information about alcohol rehabilitation?: No Counseling given: No Substance/Drug Use: never Desire information about substance/drug rehabilitation?: No Counseling given: No Lives independently: Yes Marital status: Single Current occupational status: disabled Data Anesthesia Cardiac Studies: Sestamibi Stress Test (Cardiology) 08/05 Holter Monitor 01/29/22
--- NOTE | 2022-09-04 09:51 | W.PM.OPSUD ---
Surgery/Procedure H&P Update DATE OF PROCEDURE: September 04, 2022 DATE H&P PERFORMED: 08/12/22 H&P UPDATE INFORMATION: I have reviewed H&P completed within last 30 days, I have examined patient prior to procedure and No changes to prior documentation PREOP DIAGNOSIS: GERD PLANNED PROCEDURE: Operation Date: 09/04/22 09:30 Proposed Procedures p [id number] EGD(Not Applicable) - Romain Brownlee DO
[2022-09-04 10:09] VITALS: BP 149/111; PULSE 81; RESP 14; TEMP 36.6; O2SAT 98
[2022-09-04 10:25] VITALS: BP 106/80; PULSE 64; RESP 18; O2SAT 98
--- NOTE | 2022-09-04 17:20 | ANE.PACU2 ---
Inpatient post-anesthesia follow up: Airway intact: Yes Vital signs: Temperature 97.8 F Pulse Rate 64 Respiratory Rate 18 Blood Pressure 106/80 Pulse Oximetry 98 Oxygen Delivery Me thod Room Air Oxygen Flow Rate Fraction of Inspir ed Oxygen Hydration adequate: Yes Nausea and vomiting: No Pain level: 1 Mental status: Baseline
== END 2022-09-04 10:43 | disposition home or self-care (01) ==
PROVIDERS: PCP Family Medicine Adult Medicine; Visit Provider Surgery
PROC: 0DJ08ZZ Inspection of Upper Intestinal Tract, Via Natural or Artificial Opening Endoscopic (ICD-10-PCS; CPT 43235; principal; 2022-09-04 09:30)
DX: K21.9 Gastro-esophageal reflux disease without esophagitis (principal); B96.81 Helicobacter pylori [H. pylori] as the cause of diseases classified elsewhere; K29.50 Unspecified chronic gastritis without bleeding; F17.290 Nicotine dependence, other tobacco product, uncomplicated; J44.9 Chronic obstructive pulmonary disease, unspecified; G47.30 Sleep apnea, unspecified; I25.118 Atherosclerotic heart disease of native coronary artery with other forms of angina pectoris; Z86.718 Personal history of other venous thrombosis and embolism; Z79.01 Long term (current) use of anticoagulants; I10 Essential (primary) hypertension; E11.9 Type 2 diabetes mellitus without complications; Z79.4 Long term (current) use of insulin; F41.9 Anxiety disorder, unspecified; F32.A Depression, unspecified
CPT/HCPCS: 36416; 43239; 82962; 88305; 88342; J1815; J7030

== ENCOUNTER → 2022-09-16 10:56 | Outpatient (BNVA) | payer MEDICAID, SELFPAY | PROVIDERS: PCP Family Medicine Adult Medicine; Visit Provider Internal Medicine Cardiovascular Disease | DX: I73.9 Peripheral vascular disease, unspecified (principal); I10 Essential (primary) hypertension; E78.2 Mixed hyperlipidemia; G47.33 Obstructive sleep apnea (adult) (pediatric); I25.119 Atherosclerotic heart disease of native coronary artery with unspecified angina pectoris; E11.69 Type 2 diabetes mellitus with other specified complication; F17.290 Nicotine dependence, other tobacco product, uncomplicated; Z79.4 Long term (current) use of insulin | CPT/HCPCS: 99214 ==

== ENCOUNTER → 2022-09-18 13:37 | Outpatient (BNVA) | payer MEDICAID, SELFPAY | PROVIDERS: PCP Family Medicine Adult Medicine; Visit Provider Anesthesiology Pain Medicine | DX: M54.16 Radiculopathy, lumbar region (principal); M48.062 Spinal stenosis, lumbar region with neurogenic claudication | CPT/HCPCS: 64483; 64484; J1100; J3490 ==

== ENCOUNTER → 2022-09-23 16:24 | Outpatient (BNVA) | payer MEDICAID, SELFPAY | PROVIDERS: PCP Family Medicine Adult Medicine; Visit Provider Surgery | DX: K29.70 Gastritis, unspecified, without bleeding (principal); B96.81 Helicobacter pylori [H. pylori] as the cause of diseases classified elsewhere | CPT/HCPCS: 99212 ==

== ENCOUNTER → 2022-09-25 11:32 | Outpatient (BNVA) | payer MEDICAID, SELFPAY | PROVIDERS: PCP Family Medicine Adult Medicine; Visit Provider Internal Medicine | DX: R82.90 Unspecified abnormal findings in urine (principal); I25.10 Atherosclerotic heart disease of native coronary artery without angina pectoris; E11.65 Type 2 diabetes mellitus with hyperglycemia; E78.2 Mixed hyperlipidemia; R00.2 Palpitations; B35.1 Tinea unguium; E11.59 Type 2 diabetes mellitus with other circulatory complications; Z79.4 Long term (current) use of insulin; Z79.84 Long term (current) use of oral hypoglycemic drugs | CPT/HCPCS: 81003; 99214 ==

== ENCOUNTER 2022-10-06 11:36 | Outpatient (CLI) | payer MEDICAID, SELFPAY ==
--- NOTE | 2022-10-06 12:00 | CT_ITS ---
WS: [id number] CTA ABDOMINAL AORTA WITH RUNOFF TECHNIQUE: Contrast enhanced CTA of the abdominal aorta with bilateral lower extremity runoff. Multip lanar reformatted images were obtained. MIP reformats were also reviewed. CLINICAL INFORMATION: PVD COMPARISON: CTA abdomen 018 DLP: 656.[address] scans at [facility] use at least one of these dose optimization techniques: automated e xposure control; mA and/or kV adjustment per patient size (includes targeted exams where dose is matc hed to clinical indication); or iterative reconstruction. FINDINGS: Normal caliber abdominal aorta. Celiac and SMA are patent. Proximal renal arteries are coombs nt. RIGHT: RIGHT common iliac artery is patent with mild calcified atheromatous disease. Internal and ext ernal iliac arteries are patent. Patent common femoral artery with mild stenosis. Superficial femoral artery is patent. Deep femoral artery is patent. Superficial femoral artery is patent to the adducto r hiatus. Popliteal artery is patent. Two-vessel runoff to the ankle. No significant flow in the ante rior tibial artery in the mid and distal portions. LEFT: LEFT common iliac artery is patent. Internal and external iliac arteries are patent. Common fem oral artery is patent. Moderate to severe stenosis in the distal common femoral artery at the bifurca tion with irregular atheromatous disease. Superficial femoral artery is occluded at the origin. Deep femoral artery is patent. Superficial femoral artery remains occluded to the adductor hiatus. Reconst itution of the popliteal artery in the mid thigh. Popliteal artery is patent to the tibioperoneal sunni nk with severe tapered stenosis above the knee. Three-vessel runoff to the ankle with poor flow in th e peroneal artery. Lung bases are well aerated. Tiny esophageal hiatal hernia. Cholecystectomy. Adrenal glands are amandeep l. Normal pancreatic parenchymal enhancement. Sigmoid diverticulosis. No evidence of acute diverticulitis. No high-grade small or large bowel obstr uction. Fecal retention in the transverse colon. Chronic anterior wedging L1. CT/CT angio abd aorta runof [id number] IMPRESSION: 1. Normal caliber abdominal aorta. 2. RIGHT: Iliac and femoral arteries are patent. Popliteal artery is patent. T wo-vessel runoff to the ankle with occlusion of the anterior tibial artery in t he proximal to mid lower leg 3. LEFT: High-grade stenosis in the distal common femoral artery at the bifurc ation with occlusion of the superficial femoral artery at the origin. This evelio ins occluded to the adductor hiatus. Reconstitution of the popliteal artery in the mid thigh which is patent to the distal femur with distal tapering and divine y termination. Three-vessel runoff to the ankle with poor flow in the peroneal artery 4. Celiac and SMA are patent. Proximal renal arteries are patent. 5. Prior cholecystectomy.
[2022-10-06] MEDS: iohexol 350 mg/mL 500 mL Btl (per mL) IV (12:16)
== END 2022-10-06 11:37 | disposition home or self-care (01) ==
PROVIDERS: PCP Family Medicine Adult Medicine; Visit Provider Internal Medicine Cardiovascular Disease
DX: E11.51 Type 2 diabetes mellitus with diabetic peripheral angiopathy without gangrene (principal); I70.213 Atherosclerosis of native arteries of extremities with intermittent claudication, bilateral legs; I77.1 Stricture of artery; I82.409 Acute embolism and thrombosis of unspecified deep veins of unspecified lower extremity; E11.65 Type 2 diabetes mellitus with hyperglycemia; Z90.49 Acquired absence of other specified parts of digestive tract
CPT/HCPCS: 75635; 99214; Q9967

== ENCOUNTER → 2022-10-09 09:24 | Outpatient (BNVA) | payer MEDICAID, SELFPAY | PROVIDERS: PCP Family Medicine Adult Medicine; Visit Provider Thoracic Surgery (Cardiothoracic Vascular Surgery) | DX: I73.9 Peripheral vascular disease, unspecified (principal) | CPT/HCPCS: 99203 ==

== ENCOUNTER → 2022-10-16 13:26 | Outpatient (BNVA) | payer MEDICAID, SELFPAY | PROVIDERS: PCP Family Medicine Adult Medicine; Visit Provider Anesthesiology Pain Medicine | DX: M54.16 Radiculopathy, lumbar region (principal); M48.062 Spinal stenosis, lumbar region with neurogenic claudication | CPT/HCPCS: 64483; 64484; J1100; J3490 ==

== ENCOUNTER → 2022-10-23 10:12 | Outpatient (BNVA) | payer MEDICAID, SELFPAY | PROVIDERS: PCP Family Medicine Adult Medicine; Visit Provider Physician Assistant | DX: I73.9 Peripheral vascular disease, unspecified (principal); M48.062 Spinal stenosis, lumbar region with neurogenic claudication | CPT/HCPCS: 99213 ==

== ENCOUNTER → 2022-10-27 10:24 | Outpatient (BNVA) | payer MEDICAID, SELFPAY | PROVIDERS: PCP Family Medicine Adult Medicine; Visit Provider Podiatrist Foot & Ankle Surgery | DX: I73.9 Peripheral vascular disease, unspecified (principal); B35.1 Tinea unguium; E11.42 Type 2 diabetes mellitus with diabetic polyneuropathy; G62.9 Polyneuropathy, unspecified; Z79.4 Long term (current) use of insulin; Z79.84 Long term (current) use of oral hypoglycemic drugs | CPT/HCPCS: 11721; 99204 ==

== ENCOUNTER → 2022-11-12 10:51 | Outpatient (BNVA) | payer MEDICAID, SELFPAY | PROVIDERS: PCP Family Medicine Adult Medicine; Visit Provider Internal Medicine | DX: E11.59 Type 2 diabetes mellitus with other circulatory complications (principal); I25.10 Atherosclerotic heart disease of native coronary artery without angina pectoris; E11.65 Type 2 diabetes mellitus with hyperglycemia; E78.2 Mixed hyperlipidemia; R00.2 Palpitations; B35.1 Tinea unguium; R82.90 Unspecified abnormal findings in urine; E78.5 Hyperlipidemia, unspecified; Z79.4 Long term (current) use of insulin; Z79.84 Long term (current) use of oral hypoglycemic drugs | CPT/HCPCS: 99214 ==

== ENCOUNTER → 2022-11-19 12:20 | Outpatient (BNVA) | payer MEDICAID, SELFPAY | PROVIDERS: PCP Family Medicine Adult Medicine; Visit Provider Internal Medicine | DX: I73.9 Peripheral vascular disease, unspecified (principal); G47.33 Obstructive sleep apnea (adult) (pediatric); E78.2 Mixed hyperlipidemia; E11.65 Type 2 diabetes mellitus with hyperglycemia; I10 Essential (primary) hypertension; Z79.01 Long term (current) use of anticoagulants; F17.290 Nicotine dependence, other tobacco product, uncomplicated; Z79.4 Long term (current) use of insulin; Z79.84 Long term (current) use of oral hypoglycemic drugs; I82.5Z1 Chronic embolism and thrombosis of unspecified deep veins of right distal lower extremity; I82.511 Chronic embolism and thrombosis of right femoral vein | CPT/HCPCS: 99214 ==

== ENCOUNTER 2022-12-04 07:45 | Outpatient (CLI) | payer MEDICAID, SELFPAY ==
[2022-12-04] VITALS (14 sets, daily range): BP systolic 122–188; BP diastolic 72–102; PULSE 53–76; RESP 11–20; TEMP 36.8; O2SAT 94–100; BMI 30.4
--- NOTE | 2022-12-04 07:25 | SUR.PHASEII ---
POST CATH NOTE Patient to CPRU-3. Status post cardiac cath via the right radial approach. Site is hemostatic and free of hematoma formation. Verbal post cath instructions went over with the patient and the family. They understood well. Vitals and Assessments per flowsheets. Call light in reach. Informed to call for needs.
--- NOTE | 2022-12-04 07:30 | XACV_ITS ---
Ht: 168 cm Wt: 86 kg BSA: 2.02 m2 Any Known Allergies: No known allergies Gender: Male : 1960 Exam Type: Invasive Peripheral Vascular Procedure(s): Procedure Description: Peripheral Cath Diagnostic Procedure Procedure Description: Abdominal aortic angiography Exam Priority: Routine Abdominal Diagnostic Findings Distal abdominal aorta: Patent. Lower Extremity Diagnostic Findings INDICATION: 62-year-old man with past medical history of COPD, current smoker who has been referred for evaluation of peripheral artery disease. Patient has significant claudication symptoms mostly on left lower extremity. He had a CTA that showed totally occluded SFA on the left side. He is currently on medical therapy with cilostazol. Left lower extremity findings: Left common iliac artery is patent. Left external iliac arteries.. Left, internal iliac arteries patent. Left common femoral artery is patent. Left SFA is ostially occluded. Left profunda artery is patent and supplying the collaterals to the distal SFA. Popliteal artery on the left side is patent proximally however in mid to distal segment it is totally occluded. TP segment and anterior tibial artery then reconstitutes via collaterals.. Right lower extremity findings: Right common iliac artery is open. Right external iliac artery is patent. Right internal iliac artery is patent. Right common femoral artery is patent. Right profunda is patent. Right popliteal artery is patent. Right anterior tibial artery is occluded in mid segment. Right TP segment is patent. Right peroneal artery is patent. Right TP has moderate to severe ostial disease. It is a small caliber vessel.. Lower Extremity Interventional Findings Procedure detail: After diagnostic images, we switched short sheath and right common femoral artery to 45 cm long Sheath. Using glidewire and seeker support catheter, we crossed the SFA occlusion. However attempts at crossing the distal popliteal artery were not successful. At this time we aborted further attempts and decided to refer patient for vascular surgery opinion.. Conclusions Totally occluded left SFA and distal popliteal arteries. Unsuccessful attempt at revascularization. We will refer patient for vascular surgery opinion regarding percutaneous versus surgical options vs medical therapy. Recommendations Aggressive risk factor modification. Outpatient cardiology follow up in 2 weeks. Hemodynamic Data Phase:Rest AO : 178.0 / 72.0 ( 112.0 ) @ 10:02:00 AM 190.0 / 92.0 ( 127.0 ) @ 10:23:00 AM Access Site Site: Right Femoral artery Sheath Size: 6 Fr Hemost... Success: Unsuccessful Procedure Details Findings Procedure Consent Obtained. Admit Source: Out Patient. Pre-Procedure Time Out. Identified patient by full name and date of as verbalized by the patient/guarantor. Does the consent match the physician's order: Yes. Accurate & Complete Informed Consent: Yes. Inpatient/Outpatient History & Physical on Chart: Yes. If H&P is completed, is and addenduem needed: No; If yes, is the addendum complete: N/A. Visualize and Verify Site with Patient/Guarantor: N/A. Relevant Radiology Images available: Yes. The risks, benefits, and alternatives of sedation and/or procedure were discussed by physician. The patient agrees to continue. Procedure started. Correct patient, site and procedure confirmed by cath team. PERRLA. Strong, equal hand tire and lube technician bilaterally. Lungs clear x 5 lobes. IV Site on Arrival: 18 gauge in the left anticubital. IV Fluids: 0.9% NaCl at KVO. 0 mL infused prior to rags laborer. Pre Procedural Pulses: bilateral dorsalis pedis was Doppled. Pre Procedural Pulses: bilateral posterior tibial was Doppled. Pre Procedural Pulses: bilateral radial was 2+. Oxygen started at 2liters/min via nasal canula. bilateral groins was prepped with chloroprep then draped in the usual sterile fashion. Baseline sample Acquired. HR: 0 BPM. Physician notified. Physician arrived. Physician scrubbed in. Time out performed with cath team. Lidocaine 1% infiltrated to the right groin. Arterial access obtained with micropuncture set. A 5FrFr UF catheter in over wire. Abdominal aortogram performed in RIVERO @ 10 mL/sec for a total of 30 mL. Glidewire in. Catheter removed over the glide wire. Short sheath exchanged for long flexer sheath. Seeker catheter inserted over the glide wire. Side port of sheath attached to Normal Saline flush at KVO to maintain patency. Left external iliac selected and arteriogram with runoff performed @ 10 mL/sec for a total of 10 mL. Glidewire removed. DSA of below left knee. Glidewire inserted. Glidewire removed. Command wire in through the catherter. wire and seeker removed. Sheath injected in Left common femoral artery and runoff performed. DSA of below left knee. Long flexor sheath exchanged for short sheath. Sheath injected in Right common femoral artery and runoff performed. Post Procedure: Pulses reassessed and unchanged. PERRLA. Strong, equal hand tire and lube technician bilaterally. No VTE prophylaxis required. Medication's Wasted: Heparin = 4000 units. Total IV fluids: 50 mL. Post-op diagnosis: Severe PAD. Complications: none. Estimated blood loss: 5mL-10mL. Responsiveness - Normal response to verbal stimuli; alert and oriented, PERRLA. Airway - Unaffected, no intervention required; spontaneous ventilation. Circulation: W/N/L, pulses unchanged. Nausea/Vomiting: No. Procedure completed. Patient transferred by bed to CPRU. Vital chart was stopped. Procedure Medications Start: 8:52 AM Stop: 8:52 AM Medication: Versed Amount: 1 mg Route: I.V. Start: 8:52 AM Stop: 8:52 AM Medication: Fentanyl Amount: 50 mcg Route: I.V. Start: 8:58 AM Stop: 8:58 AM Medication: Versed Amount: 1 mg Route: I.V. Start: 8:58 AM Stop: 8:58 AM Medication: Fentanyl Amount: 25 mcg Route: I.V. Start: 9:01 AM Stop: 9:01 AM Medication: Versed Amount: 1 mg Route: I.V. Start: 9:28 AM Stop: 9:28 AM Medication: Versed 1 mg and Fentanyl 25 mcg Amount: 1 Route: I.V. I, the attending physician, have reviewed and verified all procedure medications. Yes, all medications given per verbal order History/Risk Factors Hypertension: Yes Dyslipidemia: Yes Peripheral Arterial Disease (PAD): No Obesity: No Tobacco Use: Former Prior Interventions PCI: No CABG: No Valve Surgery: No Report Signatures Finalized by Kehinde Gutierrez MD on 12/17/2022 12:58 PM
[2022-12-04] MEDS: aspirin 325 mg Tablet PO (08:05)
[2022-12-04] MEDS: diphenhydrAMINE 50 mg Capsule PO (08:05)
[2022-12-04 08:12] LABS: Glucose Point of Care 346 mg/dL (70-110)
[2022-12-04 08:18] LABS: Basophils # 0.1 10^3/uL (0.0-0.1); Basophils % 0.7 %; Eosinophils # 0.1 10^3/uL (0.0-0.8); Eosinophils % 1.8 %; Hemoglobin 14.9 g/dL (11.7-16.6); Lymphocytes # 1.9 10^3/uL (0.8-4.8); Lymphocytes % 25.5 %; Mean Corpuscular HGB Conc 34.7 g/dL (30.0-36.0); Mean Corpuscular Volume 86.5 fl (80-94); Mean Platelet Volume 9.9 fL (7.4-10.4); Monocytes # 0.5 10^3/uL (0.2-0.9); Monocytes % 6.7 %; Neutrophils # 4.74 10^3/uL (1.8-7.7); Nucleated Red Blood Cells % 0 %; Platelet Count 226 10^3/cmm (130-400); Red Blood Count 4.97 10^6/uL (4.1-5.3); Red Cell Distribution Width 12.6 % (12.1-15.1); White Blood Count 7.3 10^3/uL (4.0-10.0)
[2022-12-04 08:42] LABS: Anion Gap 13.9 (5-19); Blood Urea Nitrogen 10 mg/dL (8-23); Calcium 9.2 mg/dL (8.5-10.5); Carbon Dioxide 26 mmol/L (22-29); Chloride 101 mmol/L (98-107); Glucose 354 mg/dL (65-115); Osmolality Calculated 297 mOsm/kg (285-295); Potassium 3.9 mmol/L (3.5-5.1); Sodium 137 mmol/L (136-145)
--- NOTE | 2022-12-04 08:43 | SUR.PREOP ---
mushroom growth media mixer MAR is not working correctly at this time. Patient identifiers verified by name and date of . Aspirin 325 mg and Benadryl 50 mg PO was given at 0805 prior to procedure as ordered. Verified by Leticia Lopez RN.
--- NOTE | 2022-12-04 08:53 | W.PM.OPSUD ---
Surgery/Procedure H&P Update DATE OF PROCEDURE: December 04, 2022 DATE H&P PERFORMED: 11/19/22 H&P UPDATE INFORMATION: I have reviewed H&P completed within last 30 days, I have examined patient prior to procedure and No changes to prior documentation PREOP DIAGNOSIS: Severe lifestyle limiting claudication PRIMARY INDICATION FOR PROCEDURE: Severe lifestyle limiting claudication PLANNED PROCEDURE: Operation Date: 12/04/22 07:00 Proposed Procedures p Periph Angiogram 82099,I73.9, G62.9, I70.209(Not Applicable) - Kehinde Gutierrez M.D Possible percutaneous intervention PATIENT REASSESSED PRIOR TO SEDATION, WITH NO CHANGE NOTED: Yes PHYSICAL EXAM: alert, oriented x 3, clear to auscultation bilaterally and regular rate & rhythm AIRWAY EVAL/ANESTHESIA PLAN: normal airway, ASA III, Local Anesthesia, Risks, benefits & alternatives of sedation and/or procedure discussed and Patient agrees to continue as planned ADDITIONAL INFORMATION: Moderate sedation
--- NOTE | 2022-12-04 09:53 | SUR.PHASEI ---
POST CATH NOTE Recieved patient from recyclable products sorter. Status post peripheral angiogram via the right femoral appoach. Sheath removed and manual pressure held in CCL prior to arrival in CPRU. No hematoma formation noted. Vitals and assessments per flowsheets. No pain reported. Family at bedside. MD in to discuss findings. Call light in reach. Informed to call for needs.
--- NOTE | 2022-12-04 11:04 | PC.NURSE ---
Patient arrived from denture laboratory technician via bed. Patient had sheath to the right groin, was pulled in denture laboratory technician at 0950am. Dressing is in tact and there is no hematoma formation. VS are stable, nurse will continue to monitor.
--- NOTE | 2022-12-04 13:29 | PC.NURSE ---
Reported anxiety of the patient to physician and received orders to give 0.5mg Xanax ONCE
[2022-12-04] MEDS: ALPRAZolam 0.5 mg Tablet PO (13:40)
--- NOTE | 2022-12-04 17:42 | PC.NURSE ---
Discharge Note Patient discharged to home via POV accompanied by spouse. Discharge instructions reviewed with patient and/or customer engagement representative. Mobile pharmacy medications and/or prescriptions provided. Belongings/home medications returned.
== END 2022-12-04 17:43 | disposition home or self-care (01) ==
LOC: CCL 07:46 → CSU 11:55
PROVIDERS: PCP Family Medicine Adult Medicine; Visit Provider Internal Medicine
DX: G62.9 Polyneuropathy, unspecified (principal); I70.203 Unspecified atherosclerosis of native arteries of extremities, bilateral legs; J44.9 Chronic obstructive pulmonary disease, unspecified; F17.210 Nicotine dependence, cigarettes, uncomplicated; I77.1 Stricture of artery
CPT/HCPCS: 36415; 36416; 75625; 75716; 80048; 82962; 85025; 96361; 96365; 99152; 99153; C1769; C1887; C1894; J1644; J2250; J3010; J7030; Q0163; Q9967

== ENCOUNTER → 2022-12-15 10:25 | Outpatient (BNVA) | payer MEDICAID, SELFPAY | PROVIDERS: PCP Family Medicine Adult Medicine; Visit Provider Nurse Practitioner Family | DX: I73.9 Peripheral vascular disease, unspecified (principal); F17.290 Nicotine dependence, other tobacco product, uncomplicated | CPT/HCPCS: 80048; 99214 ==

== ENCOUNTER → 2022-12-17 10:10 | Outpatient (BNVA) | payer MEDICAID, SELFPAY | PROVIDERS: PCP Family Medicine Adult Medicine; Visit Provider Anesthesiology Pain Medicine | DX: M48.062 Spinal stenosis, lumbar region with neurogenic claudication (principal) | CPT/HCPCS: 99214 ==

== ENCOUNTER → 2022-12-22 10:54 | Outpatient (BNVA) | payer MEDICAID, SELFPAY | PROVIDERS: PCP Family Medicine Adult Medicine; Visit Provider Registered Nurse Neonatal Intensive Care | DX: M79.641 Pain in right hand (principal) | CPT/HCPCS: 73130 ==

== ENCOUNTER → 2023-01-05 10:17 | Outpatient (BNVA) | payer MEDICAID, SELFPAY | PROVIDERS: PCP Family Medicine Adult Medicine; Visit Provider Podiatrist Foot & Ankle Surgery | DX: B35.1 Tinea unguium (principal); E11.42 Type 2 diabetes mellitus with diabetic polyneuropathy; I73.9 Peripheral vascular disease, unspecified; G62.9 Polyneuropathy, unspecified; Z79.84 Long term (current) use of oral hypoglycemic drugs; Z79.4 Long term (current) use of insulin | CPT/HCPCS: 11721 ==

== ENCOUNTER → 2023-03-16 10:47 | Outpatient (BNVA) | payer MEDICAID, SELFPAY | PROVIDERS: PCP Family Medicine Adult Medicine; Visit Provider Podiatrist Foot & Ankle Surgery | DX: B35.1 Tinea unguium (principal); E11.42 Type 2 diabetes mellitus with diabetic polyneuropathy; I73.9 Peripheral vascular disease, unspecified; G62.9 Polyneuropathy, unspecified; Z79.4 Long term (current) use of insulin; Z79.84 Long term (current) use of oral hypoglycemic drugs | CPT/HCPCS: 99213 ==

== ENCOUNTER → 2023-04-29 11:26 | Outpatient (BNVA) | payer MEDICAID, SELFPAY | PROVIDERS: PCP Family Medicine Adult Medicine; Visit Provider Family Medicine Adult Medicine | DX: E11.59 Type 2 diabetes mellitus with other circulatory complications (principal); I25.10 Atherosclerotic heart disease of native coronary artery without angina pectoris; E11.65 Type 2 diabetes mellitus with hyperglycemia; E78.5 Hyperlipidemia, unspecified; R00.2 Palpitations; B35.1 Tinea unguium; R82.90 Unspecified abnormal findings in urine | CPT/HCPCS: 80053; 80061; 82043; 83036 ==

== ENCOUNTER → 2023-05-07 09:58 | Outpatient (BNVA) | payer MEDICAID, SELFPAY | PROVIDERS: PCP Family Medicine Adult Medicine; Referring Provider Family Medicine Adult Medicine; Visit Provider Surgery | DX: K21.9 Gastro-esophageal reflux disease without esophagitis (principal); K92.1 Melena; R11.0 Nausea; R19.7 Diarrhea, unspecified | CPT/HCPCS: 99214 ==

== ENCOUNTER → 2023-05-15 11:35 | Outpatient (BNVA) | payer MEDICAID, SELFPAY | PROVIDERS: PCP Family Medicine Adult Medicine; Visit Provider Internal Medicine | DX: E11.65 Type 2 diabetes mellitus with hyperglycemia (principal); E78.2 Mixed hyperlipidemia; E11.59 Type 2 diabetes mellitus with other circulatory complications; I25.10 Atherosclerotic heart disease of native coronary artery without angina pectoris; Z79.4 Long term (current) use of insulin; Z79.84 Long term (current) use of oral hypoglycemic drugs | CPT/HCPCS: 99214 ==

== ENCOUNTER 2023-06-03 08:24 | Day surgery (SDC) | payer MEDICAID, SELFPAY ==
[2023-06-03 08:54] VITALS: BP 139/85; PULSE 74; RESP 18; TEMP 36.6; O2SAT 97; BMI 29.9
[2023-06-03] MEDS: sodium chloride 0.9% 1,000 ML 30 ML IV (09:05)
[2023-06-03 09:09] LABS: Glucose Point of Care 376 mg/dL (70-110)
--- NOTE | 2023-06-03 09:09 | P.ANESASSM_ITS ---
Pre-Anesthetic Assessment Height/Weight: Height 1.68 m Weight 84.368 kg Temp Pulse Resp BP Pulse Ox O2 Del Method 97.9 F 74 18 139/85 97 Room Air 06/03/23 08:54 06/03/23 08:54 06/03/23 08:54 06/03/23 08:54 06/03/23 08:54 06/03/23 08:54 Preop Diagnosis: gerd, black stools Operation Date: 06/03/23 09:30 Proposed Procedures p 41809 egd [id number] colonoscopy G0121 screen colon a risk K21.9, K92.1(Not Applicable) - Romain Brownlee DO s Colonoscopy(Not Applicable) - Romain Brownlee DO Was Beta Mike taken within 24 hours: Yes Was Clonidine taken within 24 hours: N/A Last intake: Intake Last Liquid Date 06/02/23 Last Liquid Time 23:30 Last Solid Date 06/01/23 Social No alcohol and No tobacco smokes a pipe, 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 patient understands risk to dentition and agrees to proceed History/ROS No significant history except as noted Pulmonary Chronic Obstructive Pulmonary Disease and Sleep Apnea CPAP at home, non compliant. nebulizers and inhalers daily CV/HEM Coronary Artery Disease, Hypertension and Peripheral Vascular Disease Chronic Renal Insufficiency Hepatic None reported GI Gastroesophageal Reflux Disease Metabolic Diabetes Mellitus and Hyperlipidemia [facility] [place] None reported Neuropsych Anxiety and Depression Anesthetic Plan ASA status: 3 Anesthesia: Anesthesia Evaluation and General Risk of > 500 ml blood loss (7ml/kg in children): Yes, adequate IV access and fluids planned Medications/Allergies Home Medications Medication Instructions Recorded Confirmed Last Taken Type latanoprost 0.005 % eye drops 1 drp ophthalmic (eye) BEDTIME 07/22/21 06/03/23 06/02/23 History CPAP MASK AND TUBING #1 ea 09/17/21 06/03/23 06/02/23 Rx blood sugar diagnostic (OneTouch #300 strips 06/13/22 06/03/23 06/02/23 Rx Ultra Test strips) blood-glucose meter,continuous #1 ea 06/19/22 06/03/23 06/02/23 Rx (Dexcom G6 Heavy Equipment Engine Mechanic) blood-glucose sensor (Dexcom G6 #9 ea 06/19/22 06/03/23 06/02/23 Rx Sensor device) blood-glucose transmitter (Dexcom #2 ea 06/19/22 06/03/23 06/02/23 Rx G6 Transmitter device) niacin 500 mg tablet,extended 500 mg PO DAILY 09/02/22 06/03/23 06/02/23 History release 24 hr Diabetic shoes and inserts #1 ea 10/20/22 06/03/23 06/02/23 Rx nitroglycerin 0.4 mg sublingual See Rx Instructions .Route 11/12/22 06/03/23 06/02/23 Rx tablet .COMPLEX #25 tabs cilostazol 50 mg tablet 100 mg (2 x 50 mg) PO BID #180 tabs 12/04/22 06/03/23 06/02/23 Rx carvedilol 6.25 mg tablet (Coreg) 6.25 mg PO BID #180 tabs 01/13/23 06/03/23 06/02/23 Rx rivaroxaban 20 mg tablet (Xarelto) 20 mg PO DAILY For DVT's 90 days 01/13/23 06/03/23 05/31/23 Rx #90 tabs rosuvastatin 40 mg tablet 40 mg PO DAILY Cholesterol med #90 01/13/23 06/03/23 06/02/23 Rx tabs Increase CPAP settings tto 14-18 #1 ea 01/29/23 06/03/23 06/02/23 Rx cm setting. amlodipine 10 mg tablet 10 mg PO DAILY blood pressure #30 01/29/23 06/03/23 06/02/23 Rx tabs baclofen 10 mg tablet 10 mg PO DAILY leg cramps #60 tabs 01/29/23 06/03/23 06/02/23 Rx fluticasone 500 mcg-salmeterol 50 1 inh inhalation BID #60 ea 01/29/23 06/03/23 06/02/23 Rx mcg/dose blistr powdr for inhalation (Advair Diskus) furosemide 40 mg tablet 40 mg PO DAILY #90 tabs 01/29/23 06/03/23 06/02/23 Rx glyburide 5 mg tablet 5 mg PO BID blood glucose #60 tabs 01/29/23 06/03/23 06/02/23 Rx losartan 50 mg tablet 50 mg PO BID #60 tabs 01/29/23 06/03/23 06/02/23 Rx metformin 1,000 mg tablet 1,000 mg PO BID diabetes #180 tabs 01/29/23 06/03/23 06/02/23 Rx tramadol 50 mg tablet 100 mg (2 x 50 mg) PO BID PRN pain 01/29/23 06/03/23 06/02/23 Rx #120 tabs montelukast 10 mg tablet 10 mg PO DAILY breathing #90 tabs 03/10/23 06/03/23 06/02/23 Rx (Singulair) lancets 33 gauge (OneTouch Delica #300 ea 04/16/23 06/03/23 06/02/23 Rx Plus Lancet) pen needle, diabetic 32 gauge x #200 ea 04/16/23 06/03/23 06/02/23 Rx 1/4 (TechLITE Pen Needle) metoclopramide HCl 10 mg tablet 10 mg PO QID PRN nausea and 04/29/23 06/03/23 06/02/23 Rx (Reglan) vomiting #120 tabs Novolog FlexPen U-100 Insulin 100 See Rx Instructions .Route 04/30/23 06/03/23 06/02/23 Rx unit/mL (3 mL) subcutaneous .COMPLEX #18 mL (insulin aspart U-100) insulin glargine 100 unit/mL (3 See Rx Instructions .Route 05/08/23 06/03/23 06/02/23 Rx mL) subcutaneous pen (Lantus .COMPLEX #30 mL Solostar U-100 Insulin) albuterol sulfate 90 mcg/actuation 2 puff inhalation Q6H PRN 05/12/23 06/03/23 05/31/23 Rx aerosol inhaler (Ventolin HFA) shortness of breath or wheezing #17 grams buspirone 5 mg tablet 5 mg PO TID #90 tabs 05/13/23 06/03/23 06/02/23 Rx doxepin 50 mg capsule 50 mg PO .HS #30 caps 05/13/23 06/03/23 06/02/23 Rx paroxetine HCl 30 mg tablet 60 mg (2 x 30 mg) PO QDAY #60 tabs 05/13/23 06/03/23 06/02/23 Rx ipratropium 0.5 mg-albuterol 3 mg 3 ml inhalation Q4H PRN wheezing 05/25/23 06/03/23 06/02/23 Rx (2.5 mg base)/3 mL nebulization #90 mL soln meloxicam 15 mg tablet 15 mg PO DAILY leg pain #30 tabs 05/26/23 06/03/23 06/02/23 Rx clonidine HCl 0.2 mg tablet 0.2 mg PO BID 06/01/23 06/03/23 06/02/23 History empagliflozin 25 mg tablet 25 mg PO DAILY 06/01/23 06/03/23 06/02/23 History (Jardiance) ipratropium bromide 17 2 puff inhalation QID 06/01/23 06/03/23 06/02/23 History mcg/actuation HFA aerosol inhaler (Atrovent HFA) liraglutide 0.6 mg/0.1 mL (18 mg/3 1.8 mg SUBCUT DAILY 06/01/23 06/03/23 05/31/23 History mL) subcutaneous pen injector (Victoza 2-Zack) pantoprazole 40 mg tablet,delayed 40 mg PO DAILY 06/01/23 06/03/23 06/02/23 History release tiotropium bromide 18 mcg capsule 18 mcg inhalation DAILY 06/01/23 06/03/23 06/02/23 History with inhalation device (Spiriva with HandiHaler) Allergies Allergy/AdvReac Type Severity Reaction Status Date / Time No Known Allergies Allergy Verified 06/01/23 09:42 Current Medications Generic Name Dose Route Start Last Admin Trade Name Freq PRN Reason Stop Dose Admin Sodium Chloride 1,000 mls @ 30 mls/hr 06/03/23 08:30 06/03/23 09:05 Sodium Chloride 0.9% IV 06/04/23 08:29 30 mls/hr .Q24H EVA Administration PFSH Anesthesia Medical History Black stools Diabetic gastroparesis Nausea Peripheral arterial disease Diabetes mellitus type 2 in obese Gastritis EGD 09/04/2022 Dr. Brownlee Smoker Started around 1974 with cigars, 100+ pack/yr history Intermittent palpitations Arthritis of carpometacarpal (CMC) joint of right thumb Psychiatric care Glaucoma (increased eye pressure) DVT of leg (deep venous thrombosis) Coronary artery disease due to type 2 diabetes mellitus Uncontrolled type 2 diabetes mellitus Pulmonary embolism Social anxiety disorder COPD (chronic obstructive pulmonary disease) HTN, goal below 130/80 Hyperlipidemia Obstructive sleep apnea Surgical History Status post laparoscopic cholecystectomy Hx of colonoscopy with polypectomy History of thumb surgery left thumb CMC LRTI History of colonoscopy (2015) Repeat in 5 years History of esophagogastroduodenoscopy (EGD) (03/07/19) 05/31/2019: Gastric erosions 08/09 : gastritis History of lower leg fracture with surgical repair H/O neck surgery Neck Disc Surgery; Dr. Justin Sands 04/28/2011 C4-C5, C5-C6, C6-C7 ACDFF H/O circumcision Family History Father CAD (coronary artery disease) In his 50's. Mother CAD (coronary artery disease) She had heart attack in her 40's. Other Cancer Diabetes Heart disease Hyperlipidemia Hypertension Denies family history of Anesthesia complication Bleeding disorder Social History Smoking and tobacco/nicotine status: current every day tobacco/nicotine user pipe Pipes smoked per week: 50 Years smoked pipe: 40 Pipe Details: 10-50 bowls/day Quit status (tobacco/nicotine): has tried quititng Number of times tried to quit tobacco: 1 Second hand smoke exposure: No Alcohol intake: former Year of sobriety/quit date alcohol: 2019 Substance/Drug Use: never Lives independently: Yes Marital status: Single Current occupational status: disabled Data Anesthesia Cardiac Studies: Sestamibi Stress Test (Cardiology) 08/05 Holter Monitor 01/29/22
--- NOTE | 2023-06-03 09:26 | W.PM.OPSUD ---
Surgery/Procedure H&P Update DATE OF PROCEDURE: June 03, 2023 DATE H&P PERFORMED: 05/07/23 H&P UPDATE INFORMATION: I have reviewed H&P completed within last 30 days, I have examined patient prior to procedure and No changes to prior documentation PREOP DIAGNOSIS: gerd, black stools PLANNED PROCEDURE: Operation Date: 06/03/23 09:30 Proposed Procedures p [id number] egd [id number] colonoscopy G0121 screen colon a risk K21.9, K92.1(Not Applicable) - DO vika Guerrier Colonoscopy(Not Applicable) - Romain Brownlee DO
[2023-06-03 10:01] VITALS: BP 116/70; PULSE 61; RESP 14; TEMP 36.1; O2SAT 97
[2023-06-03 10:06] VITALS: BP 108/69; PULSE 62; RESP 16; O2SAT 96
[2023-06-03 10:19] VITALS: BP 114/72; PULSE 64; RESP 18; O2SAT 98
--- NOTE | 2023-06-03 14:49 | ANE.PACU2 ---
Inpatient post-anesthesia follow up: Airway intact: Yes Vital signs: Temperature 97.0 F Pulse Rate 64 Respiratory Rate 18 Blood Pressure 114/72 Pulse Oximetry 98 Oxygen Delivery Me thod Room Air Oxygen Flow Rate Fraction of Inspir ed Oxygen Hydration adequate: Yes Nausea and vomiting: No Pain level: 2 Mental status: Baseline
[2023-06-03 20:27] LABS: C.Diff PCR (Lab) NEGATIVE (Negative)
== END 2023-06-03 11:15 | disposition home or self-care (01) ==
PROVIDERS: PCP Family Medicine Adult Medicine; Visit Provider Surgery
PROC: 0DJ08ZZ Inspection of Upper Intestinal Tract, Via Natural or Artificial Opening Endoscopic (ICD-10-PCS; CPT 43235; principal; 2023-06-03 09:30)
PROC: 0DJD8ZZ Inspection of Lower Intestinal Tract, Via Natural or Artificial Opening Endoscopic (ICD-10-PCS; CPT 45378; 2023-06-03 09:30)
DX: K92.1 Melena (principal); K21.9 Gastro-esophageal reflux disease without esophagitis; D12.2 Benign neoplasm of ascending colon; D12.4 Benign neoplasm of descending colon; J44.9 Chronic obstructive pulmonary disease, unspecified; G47.30 Sleep apnea, unspecified; Z91.199 Patient's noncompliance with other medical treatment and regimen due to unspecified reason; I25.10 Atherosclerotic heart disease of native coronary artery without angina pectoris; I10 Essential (primary) hypertension; Z79.4 Long term (current) use of insulin; Z86.718 Personal history of other venous thrombosis and embolism; F17.200 Nicotine dependence, unspecified, uncomplicated
CPT/HCPCS: 36416; 43239; 45380; 45385; 82274; 82962; 83630; 87045; 87177; 87209; 87427; 87449; 87493; 88305; J2704; J3010; J7030

== ENCOUNTER → 2023-06-22 10:56 | Outpatient (BNVA) | payer MEDICAID, SELFPAY | PROVIDERS: PCP Family Medicine Adult Medicine; Visit Provider Surgery | DX: Z09 Encounter for follow-up examination after completed treatment for conditions other than malignant neoplasm (principal); Q40.2 Other specified congenital malformations of stomach; K92.1 Melena; K21.9 Gastro-esophageal reflux disease without esophagitis; D12.6 Benign neoplasm of colon, unspecified | CPT/HCPCS: 99214 ==

== ENCOUNTER 2023-07-06 10:01 | Outpatient (CLI) | payer MEDICAID, SELFPAY ==
--- NOTE | 2023-07-06 10:00 | NM_ITS ---
WS: [id number] NUCLEAR MEDICINE GASTRIC STUDY CLINICAL INFORMATION: ectopic gastic mucosa TECHNIQUE: Following oral ingestion of cooked egg mixed with 0.98 mCi technetium 99m sulfur colloid, anterior images of the stomach were obtained over the course of 90 minutes. Activity curve was perfor med over the course of 90 minutes with linear regression analysis. COMPARISON: None. FINDINGS: Oral ingestion of cooked egg mixture T1 half emptying 80.3 minutes within normal limits 38% emptying at 60 minutes IMPRESSION: Gastric emptying within normal limits. *Normal median T1 half 90 minutes for solid egg meal (45-110 minutes). Delayed gastric retention is defined as 90% retained at 1 hour, 60% at 2 hours, 30% at 3 hours, and 10% at 4 hours (normal percent gastric retention is 37-90% at 1 hour, 30-60% at 2 hours, and 0-10% a t 4 hours).
== END 2023-07-06 10:02 | disposition home or self-care (01) ==
PROVIDERS: PCP Family Medicine Adult Medicine; Visit Provider Surgery
DX: Q40.2 Other specified congenital malformations of stomach (principal); K21.9 Gastro-esophageal reflux disease without esophagitis
CPT/HCPCS: 78264; A9541

== ENCOUNTER → 2023-07-27 10:53 | Outpatient (BNVA) | payer MEDICAID, SELFPAY | PROVIDERS: PCP Family Medicine Adult Medicine; Visit Provider Surgery | DX: R10.9 Unspecified abdominal pain (principal); Z09 Encounter for follow-up examination after completed treatment for conditions other than malignant neoplasm | CPT/HCPCS: 99214 ==

== ENCOUNTER → 2023-07-29 11:06 | Outpatient (BNVA) | payer MEDICAID, SELFPAY | PROVIDERS: PCP Family Medicine Adult Medicine; Visit Provider Internal Medicine Cardiovascular Disease | DX: R06.02 Shortness of breath (principal) | CPT/HCPCS: 36415; 80048; 83880; 99215 ==

== ENCOUNTER → 2023-08-17 11:30 | Outpatient (BNVA) | payer MEDICAID, SELFPAY | PROVIDERS: PCP Family Medicine Adult Medicine; Visit Provider Internal Medicine | DX: E11.65 Type 2 diabetes mellitus with hyperglycemia (principal); E11.59 Type 2 diabetes mellitus with other circulatory complications; I25.10 Atherosclerotic heart disease of native coronary artery without angina pectoris; E78.2 Mixed hyperlipidemia; R00.2 Palpitations; B35.1 Tinea unguium; R82.90 Unspecified abnormal findings in urine; Z79.84 Long term (current) use of oral hypoglycemic drugs; Z79.4 Long term (current) use of insulin | CPT/HCPCS: 99214 ==

== ENCOUNTER 2023-08-21 13:10 | Outpatient (CLI) | payer MEDICAID, SELFPAY ==
--- NOTE | 2023-08-21 13:15 | CTR_ITS ---
PROCEDURE INFORMATION: Exam: CT Abdomen And Pelvis Without And With Contrast Exam date and time: 08/21/2023 2:09 PM Age: 63 years old Clinical indication: Nausea; Abdominal pain; Epigastric; Prior surgery; Surgery date: 6+ months; Surgery type: Gb TECHNIQUE: Imaging protocol: Computed tomography of the abdomen and pelvis without and with contrast. Radiation optimization: All CT scans at this facility use at least one of these dose optimization techniques: automated exposure control; mA and/or kV adjustment per patient size (includes targeted exams where dose is matched to clinical indication); or iterative reconstruction. Contrast material: OMNI 350; Contrast volume: 100 ml; Contrast route: INTRAVENOUS (IV); COMPARISON: CT angio abdomen [id number] 10/22/2017 1:04 PM RADIATION DOSE METRICS: Total DLP (mGy-cm): 1222.01 FINDINGS: Liver: No acute findings Gallbladder and bile ducts: Cholecystectomy. Pancreas: No ductal dilation. 1.5 cm hyperdensity on axial image 26 in the proximal pancreatic body, indeterminate. Spleen: No splenomegaly. Adrenal glands: No mass. Kidneys and ureters: Probable punctate nonobstructing right renal calculus. No hydronephrosis. Stomach and bowel: No obstruction. Appendix: No evidence of appendicitis. Intraperitoneal space: No free air. No significant fluid collection. Vasculature: No abdominal aortic aneurysm. Lymph nodes: No enlarged lymph nodes. Urinary bladder: Incompletely distended. Reproductive: No acute findings. Bones/joints: No acute findings. Soft tissues: No acute findings. CT/CT abdomen pelvis wo/w [id number] IMPRESSION: No acute abdominal findings. 1.5 cm indeterminate pancreatic nodule. Nonemergent pancreatic protocol MRI without and with contrast recommended for further characterization.
[2023-08-21] MEDS: iohexol 350 mg/mL 500 mL Btl (per mL) IV (13:49)
[2023-08-21] MEDS: iohexol 350 mg/mL 500 mL Btl (per mL) PO (13:50)
== END 2023-08-21 13:11 | disposition home or self-care (01) ==
LOC: RAD 13:10
PROVIDERS: PCP Family Medicine Adult Medicine; Visit Provider Surgery
DX: R10.9 Unspecified abdominal pain (principal); K86.9 Disease of pancreas, unspecified; E11.65 Type 2 diabetes mellitus with hyperglycemia
CPT/HCPCS: 74178; 80053; 80061; 82043; 83036; Q9967

== ENCOUNTER → 2023-08-27 11:17 | Outpatient (BNVA) | payer OTHER, SELFPAY | PROVIDERS: PCP Family Medicine Adult Medicine; Visit Provider Surgery | DX: R11.0 Nausea (principal); K92.1 Melena; R19.7 Diarrhea, unspecified; Q40.2 Other specified congenital malformations of stomach | CPT/HCPCS: 91111 ==

== ENCOUNTER 2023-09-24 11:01 | Outpatient (CLI) | payer MEDICAID, SELFPAY ==
[2023-09-24 11:43] LABS: Anion Gap 14.1 (5-19); Blood Urea Nitrogen 7 mg/dL (8-23); Calcium 8.9 mg/dL (8.5-10.5); Carbon Dioxide 23 mmol/L (22-29); Chloride 103 mmol/L (98-107); Glomerular Filtration Rate 136.5 mL/min (90-130); Glucose 428 mg/dL (65-115); Magnesium 1.8 mg/dL (1.7-2.3); Osmolality Calculated 298 mOsm/kg (285-295); Potassium 4.1 mmol/L (3.5-5.1); Sodium 136 mmol/L (136-145)
== END 2023-09-24 11:02 | disposition home or self-care (01) ==
LOC: LAB 11:02
PROVIDERS: PCP Family Medicine Adult Medicine; Visit Provider Internal Medicine Cardiovascular Disease
DX: I10 Essential (primary) hypertension (principal); E11.59 Type 2 diabetes mellitus with other circulatory complications; I25.10 Atherosclerotic heart disease of native coronary artery without angina pectoris; E78.2 Mixed hyperlipidemia; E11.65 Type 2 diabetes mellitus with hyperglycemia
CPT/HCPCS: 36415; 80048; 83735

== ENCOUNTER 2023-10-02 11:40 | Outpatient (CLI) | payer MEDICAID, SELFPAY ==
--- NOTE | 2023-10-02 11:45 | MR_ITS ---
WS: [id number] MRI ABDOMEN WITH AND WITHOUT CONTRAST. COMPARISON: Prior CT 08/21/2023 Multiplanar, multisequence imaging is performed with and without contrast. Postcontrast MultiHance. Pancreas: Pancreas is normal size with no pancreatic duct dilatation. Previously described mass on a recent CT just distal to the pancreatic neck is identified as a very slight bulge of the pancreatic c ontour. This mass is nearly isoechoic to the normal pancreas on the T1 and T2 sequences. Mass is best seen on the early arterial imaging after contrast injection. Mass measures 1.6 x 1.3 cm and is hyper vascular. On the delayed imaging there is washout of the contrast. No additional pancreatic mass. Com mon bile duct is normal. No evidence for metastatic disease to the liver or adrenal glands. Kidneys are normal. No renal mass. No ascites or adenopathy. Normal portal vein. MR/MR abdomen wo/w con* [id number] IMPRESSION: 1. Hypervascular mass proximal body of the pancreas measures 1.6 x 1.3 cm. 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 Pancreatic adenocarcinoma may also be hypervascular but is less likely. Suggest follow-up PET/CT imaging at this time to evaluate for FDG avidi ty. 2. No additional mass or ascites.
[2023-10-02] MEDS: gadobenate dimeglumine 20 mL vial IV (12:58)
== END 2023-10-02 11:41 | disposition home or self-care (01) ==
PROVIDERS: PCP Family Medicine Adult Medicine; Visit Provider Surgery
DX: K86.9 Disease of pancreas, unspecified (principal)
CPT/HCPCS: 74183; A9577

== ENCOUNTER → 2023-10-05 10:51 | Outpatient (BNVA) | payer MEDICAID, SELFPAY | PROVIDERS: PCP Family Medicine Adult Medicine; Visit Provider Surgery | DX: K92.1 Melena (principal); K86.89 Other specified diseases of pancreas | CPT/HCPCS: 99214 ==

== ENCOUNTER → 2023-10-28 11:53 | Outpatient (BNVA) | payer MEDICAID, SELFPAY | PROVIDERS: PCP Family Medicine Adult Medicine; Visit Provider Family Medicine Adult Medicine | DX: E11.65 Type 2 diabetes mellitus with hyperglycemia (principal) | CPT/HCPCS: 80053; 80061; 82043; 83036 ==

== ENCOUNTER → 2023-11-02 11:35 | Outpatient (BNVA) | payer MEDICAID, SELFPAY | PROVIDERS: PCP Family Medicine Adult Medicine; Visit Provider Surgery | DX: K92.1 Melena (principal) | CPT/HCPCS: 99214 ==

== ENCOUNTER → 2023-11-04 08:57 | Outpatient (BNVA) | payer MEDICAID, SELFPAY | PROVIDERS: PCP Family Medicine Adult Medicine; Visit Provider Internal Medicine | DX: E11.59 Type 2 diabetes mellitus with other circulatory complications (principal); I25.10 Atherosclerotic heart disease of native coronary artery without angina pectoris; E11.65 Type 2 diabetes mellitus with hyperglycemia; E78.2 Mixed hyperlipidemia; R00.2 Palpitations; B35.1 Tinea unguium; R82.90 Unspecified abnormal findings in urine; Z79.84 Long term (current) use of oral hypoglycemic drugs; Z79.4 Long term (current) use of insulin | CPT/HCPCS: 99214 ==

== ENCOUNTER 2024-01-25 12:04 | Outpatient (CLI) | payer MEDICAID, SELFPAY ==
[2024-01-25 12:42] LABS: Estmated Average Glucose 232; Hemoglobin A1C 9.7 % (4.0-6.0)
[2024-01-25 12:44] LABS: Alanine Aminotransferase < 5 U/L (0-41); Albumin Level 3.8 g/dL (3.5-5.2); Alkaline Phosphatase 103 U/L (40-130); Anion Gap 13.1 (5-19); Aspartate Amino Transferase 8 U/L (0-40); Blood Urea Nitrogen 10 mg/dL (8-23); Calcium 8.4 mg/dL (8.5-10.5); Carbon Dioxide 25 mmol/L (22-29); Chloride 104 mmol/L (98-107); Chol HDL Ratio 4.81 mg/dL (1.0-5.00); Cholesterol 130 mg/dL (0-200); Globulin 2.6 g/dL (1.3-4.6); Glomerular Filtration Rate 113.9 mL/min (90-130); Glucose 195 mg/dL (65-115); HDL Cholesterol 27 mg/dL (60-100); LDL Cholesterol Calculated 80 mg/dL (50-129); LDL HDL Ratio 2.96 RATIO (0.00-3.22); Osmolality Calculated 290 mOsm/kg (285-295); Potassium 4.1 mmol/L (3.5-5.1); Sodium 138 mmol/L (136-145); Total Bilirubin 0.2 mg/dL (0.15-1.2); Total Protein 6.4 g/dL (6.6-8.7); Triglycerides 117 mg/dL (0-150)
[2024-01-25 12:45] LABS: Creatinine Urine, Random 150 mg/dL (39-259); Microalbum Creatinine Ratio Ur 7 mg/dL (0-20); Microalbumin Random Urine 1 ug/dL (0-20)
== END 2024-01-25 12:05 | disposition home or self-care (01) ==
LOC: LAB 12:06
PROVIDERS: PCP Family Medicine Adult Medicine; Visit Provider Internal Medicine
DX: E11.65 Type 2 diabetes mellitus with hyperglycemia (principal); E78.2 Mixed hyperlipidemia
CPT/HCPCS: 36415; 80053; 80061; 82044; 83036

== ENCOUNTER → 2024-03-16 09:41 | Outpatient (BNVA) | payer MEDICAID, SELFPAY | PROVIDERS: PCP Family Medicine Adult Medicine; Visit Provider Podiatrist Foot & Ankle Surgery | DX: B35.1 Tinea unguium; E11.42 Type 2 diabetes mellitus with diabetic polyneuropathy; I73.9 Peripheral vascular disease, unspecified; G62.9 Polyneuropathy, unspecified; Z79.4 Long term (current) use of insulin; Z79.84 Long term (current) use of oral hypoglycemic drugs | CPT/HCPCS: 11721; 99213 ==

== ENCOUNTER → 2024-03-28 09:47 | Outpatient (BNVA) | payer MEDICAID, SELFPAY | PROVIDERS: PCP Family Medicine Adult Medicine; Visit Provider Surgery | DX: K86.89 Other specified diseases of pancreas (principal) | CPT/HCPCS: 99214 ==

== ENCOUNTER → 2024-03-31 12:07 | Outpatient (BNVA) | payer MEDICAID, SELFPAY | PROVIDERS: PCP Family Medicine Adult Medicine; Visit Provider Internal Medicine | DX: E11.43 Type 2 diabetes mellitus with diabetic autonomic (poly)neuropathy (principal); K31.84 Gastroparesis; E11.65 Type 2 diabetes mellitus with hyperglycemia; E78.2 Mixed hyperlipidemia | CPT/HCPCS: 36415; 80053; 80061; 82044; 82941; 83036; 99214 ==

== ENCOUNTER → 2024-04-04 17:04 | Outpatient (BNVA) | payer MEDICAID, SELFPAY | PROVIDERS: PCP Family Medicine Adult Medicine; Visit Provider Surgery | DX: R10.13 Epigastric pain (principal) | CPT/HCPCS: 99212 ==

== ENCOUNTER → 2024-04-18 13:53 | Outpatient (BNVA) | payer MEDICAID, SELFPAY ==
[2024-04-11 14:55] VITALS: BP 151/85; BMI 30.4
== END ==
PROVIDERS: Visit Provider Internal Medicine Cardiovascular Disease
DX: I25.10 Atherosclerotic heart disease of native coronary artery without angina pectoris (principal); E11.59 Type 2 diabetes mellitus with other circulatory complications; E78.2 Mixed hyperlipidemia; I10 Essential (primary) hypertension; R00.2 Palpitations; I70.209 Unspecified atherosclerosis of native arteries of extremities, unspecified extremity; Z86.718 Personal history of other venous thrombosis and embolism; F17.290 Nicotine dependence, other tobacco product, uncomplicated; Z79.4 Long term (current) use of insulin; Z79.01 Long term (current) use of anticoagulants
CPT/HCPCS: 99214

== ENCOUNTER → 2024-04-28 11:38 | Outpatient (BNVA) | payer MEDICAID, SELFPAY ==
[2024-04-11 14:55] VITALS: BP 151/85; BMI 30.4
== END ==
PROVIDERS: Visit Provider Internal Medicine
DX: E11.65 Type 2 diabetes mellitus with hyperglycemia (principal); E78.2 Mixed hyperlipidemia; E11.43 Type 2 diabetes mellitus with diabetic autonomic (poly)neuropathy; K31.84 Gastroparesis; E11.59 Type 2 diabetes mellitus with other circulatory complications; I25.10 Atherosclerotic heart disease of native coronary artery without angina pectoris
CPT/HCPCS: 99214

== ENCOUNTER → 2024-05-02 15:32 | Outpatient (BNVA) | payer MEDICAID, SELFPAY ==
[2024-04-11 14:55] VITALS: BP 151/85; BMI 30.4
== END ==
PROVIDERS: Visit Provider Surgery
DX: R19.7 Diarrhea, unspecified (principal); K58.9 Irritable bowel syndrome, unspecified
CPT/HCPCS: 99212

== ENCOUNTER → 2024-06-06 12:03 | Outpatient (BNVA) | payer MEDICAID, SELFPAY ==
[2024-04-11 14:55] VITALS: BP 151/85; BMI 30.4
== END ==
PROVIDERS: Visit Provider Podiatrist Foot & Ankle Surgery
DX: B35.1 Tinea unguium (principal); E11.42 Type 2 diabetes mellitus with diabetic polyneuropathy; I73.9 Peripheral vascular disease, unspecified; G62.9 Polyneuropathy, unspecified; Z79.4 Long term (current) use of insulin; Z79.84 Long term (current) use of oral hypoglycemic drugs
CPT/HCPCS: 99213

== ENCOUNTER → 2024-08-23 11:35 | Outpatient (BNVA) | payer MEDICAID, SELFPAY ==
[2024-04-11 14:55] VITALS: BP 151/85; BMI 30.4
== END ==
PROVIDERS: PCP Family Medicine; Visit Provider Family Medicine
DX: E11.65 Type 2 diabetes mellitus with hyperglycemia (principal); Z51.81 Encounter for therapeutic drug level monitoring; Z13.6 Encounter for screening for cardiovascular disorders; R25.2 Cramp and spasm; E53.8 Deficiency of other specified B group vitamins
CPT/HCPCS: 80053; 80061; 82607; 83036; 83735; 85025

== ENCOUNTER → 2024-08-24 10:30 | Outpatient (BNVA) | payer MEDICAID, SELFPAY ==
[2024-08-26 15:26] VITALS: BP 130/68; BMI 31.6
== END ==
PROVIDERS: PCP Family Medicine; Visit Provider Internal Medicine
DX: E11.43 Type 2 diabetes mellitus with diabetic autonomic (poly)neuropathy (principal); E11.59 Type 2 diabetes mellitus with other circulatory complications; E11.65 Type 2 diabetes mellitus with hyperglycemia; E78.2 Mixed hyperlipidemia
CPT/HCPCS: 99214

== ENCOUNTER → 2024-11-02 10:01 | Outpatient (BNVA) | payer MEDICAID, SELFPAY ==
[2024-08-26 15:26] VITALS: BP 130/68; BMI 31.6
== END ==
PROVIDERS: PCP Family Medicine; Visit Provider Internal Medicine Cardiovascular Disease
DX: R07.9 Chest pain, unspecified (principal); G62.9 Polyneuropathy, unspecified; E11.65 Type 2 diabetes mellitus with hyperglycemia; Z79.4 Long term (current) use of insulin; Z79.84 Long term (current) use of oral hypoglycemic drugs; E53.8 Deficiency of other specified B group vitamins; I10 Essential (primary) hypertension; Z79.01 Long term (current) use of anticoagulants; F17.290 Nicotine dependence, other tobacco product, uncomplicated; E11.59 Type 2 diabetes mellitus with other circulatory complications; I25.10 Atherosclerotic heart disease of native coronary artery without angina pectoris
CPT/HCPCS: 99214

== ENCOUNTER → 2024-12-06 12:41 | Outpatient (BNVA) | payer MEDICAID, SELFPAY ==
[2024-08-26 15:26] VITALS: BP 130/68; BMI 31.6
== END ==
PROVIDERS: PCP Family Medicine; Visit Provider Podiatrist Foot & Ankle Surgery
DX: E11.42 Type 2 diabetes mellitus with diabetic polyneuropathy (principal); B35.1 Tinea unguium; I73.9 Peripheral vascular disease, unspecified; G62.9 Polyneuropathy, unspecified; Z79.4 Long term (current) use of insulin; Z79.84 Long term (current) use of oral hypoglycemic drugs
CPT/HCPCS: 99213

== ENCOUNTER → 2025-01-10 11:20 | Outpatient (BNVA) | payer MEDICAID, SELFPAY ==
[2024-08-26 15:26] VITALS: BP 130/68; BMI 31.6
== END ==
PROVIDERS: PCP Family Medicine; Visit Provider Internal Medicine
DX: E11.69 Type 2 diabetes mellitus with other specified complication (principal); K31.84 Gastroparesis; E11.59 Type 2 diabetes mellitus with other circulatory complications; I25.10 Atherosclerotic heart disease of native coronary artery without angina pectoris; E11.65 Type 2 diabetes mellitus with hyperglycemia; E78.2 Mixed hyperlipidemia; Z79.4 Long term (current) use of insulin
CPT/HCPCS: 99214

== ENCOUNTER → 2025-02-15 13:01 | Outpatient (BNVA) | payer MEDICAID, SELFPAY ==
[2024-08-26 15:26] VITALS: BP 130/68; BMI 31.6
== END ==
PROVIDERS: PCP Family Medicine; Visit Provider Podiatrist Foot & Ankle Surgery
DX: E11.42 Type 2 diabetes mellitus with diabetic polyneuropathy (principal); B35.1 Tinea unguium; L84 Corns and callosities; I73.9 Peripheral vascular disease, unspecified; Z79.84 Long term (current) use of oral hypoglycemic drugs; G62.9 Polyneuropathy, unspecified; Z79.4 Long term (current) use of insulin
CPT/HCPCS: 11056; 11721; 99213

== ENCOUNTER → 2025-03-28 13:28 | Outpatient (BNVA) | payer MEDICAID, SELFPAY ==
[2024-08-26 15:26] VITALS: BP 130/68; BMI 31.6
== END ==
PROVIDERS: PCP Family Medicine; Visit Provider Family Medicine
DX: Z20.822 Contact with and (suspected) exposure to COVID-19 (principal)
CPT/HCPCS: 87426

== ENCOUNTER 2025-04-04 10:34 | Outpatient (CLI) | payer MEDICAID, SELFPAY ==
[2024-08-26 15:26] VITALS: BP 130/68; BMI 31.6
[2025-04-04 13:33] LABS: Alanine Aminotransferase 11 U/L (0-41); Albumin Level 4.0 g/dL (3.5-5.2); Alkaline Phosphatase 126 U/L (40-130); Anion Gap 14.1 (5-19); Aspartate Amino Transferase 11 U/L (0-40); Blood Urea Nitrogen 4 mg/dL (8-23); Calcium 8.8 mg/dL (8.5-10.5); Carbon Dioxide 27 mmol/L (22-29); Chloride 99 mmol/L (98-107); Cholesterol 161 mg/dL (0-200); Globulin 2.8 g/dL (1.3-4.6); Glucose 324 mg/dL (65-115); HDL Cholesterol 30 mg/dL (60-100); Osmolality Calculated 291 mOsm/kg (285-295); Potassium 4.1 mmol/L (3.5-5.1); Sodium 136 mmol/L (136-145); Total Protein 6.8 g/dL (6.6-8.7); Triglycerides 127 mg/dL (0-150)
[2025-04-04 13:44] LABS: Creatinine Urine, Random 121 mg/dL (39-259); Microalbum Creatinine Ratio Ur 17 mg/dL (0-20)
[2025-04-04 13:45] LABS: Estmated Average Glucose 303; Hemoglobin A1C 12.2 % (4.0-6.0)
== END 2025-04-04 10:35 | disposition home or self-care (01) ==
LOC: LAB 10:35
PROVIDERS: PCP Family Medicine; Visit Provider Internal Medicine
DX: E11.43 Type 2 diabetes mellitus with diabetic autonomic (poly)neuropathy (principal); K31.84 Gastroparesis; E11.69 Type 2 diabetes mellitus with other specified complication; E66.9 Obesity, unspecified
CPT/HCPCS: 36415; 80053; 80061; 82044; 83036

== ENCOUNTER → 2025-04-18 11:25 | Outpatient (BNVA) | payer MEDICAID, SELFPAY ==
[2025-04-06 15:58] VITALS: BP 138/76; BMI 29.8
== END ==
PROVIDERS: PCP Family Medicine; Visit Provider Internal Medicine Endocrinology, Diabetes & Metabolism
DX: E11.65 Type 2 diabetes mellitus with hyperglycemia (principal); K31.84 Gastroparesis; E11.59 Type 2 diabetes mellitus with other circulatory complications; I25.10 Atherosclerotic heart disease of native coronary artery without angina pectoris; E78.2 Mixed hyperlipidemia
CPT/HCPCS: 99214